=== PATIENT | female | born 1955 | race Caucasian/White ===

== ENCOUNTER 2020-06-26 08:59 | Outpatient (REF) | payer OTHER, SELFPAY ==
[2020-06-26 11:30] LABS: Alanine Aminotransferase 35 U/L (0-31); Anion Gap 14 (12-20); Aspartate Amino Transferase 23 U/L (5-31); Blood Urea Nitrogen 11 mg/dL (9-16); Calcium 9.4 mg/dL (8.4-10.2); Carbon Dioxide 28 mmol/L (22-29); Chloride 100 mmol/L (96-108); Cholesterol 182 mg/dL; Estimated Glomerular Filt Rate > 60; Glucose Fasting 96 mg/dL (60-99); HDL Cholesterol 45 mg/dL; LDL Cholesterol Calculated 100 mg/dl; Potassium 4.4 mmol/l (3.3-5.1); Sodium 138 mmol/L (135-145); Triglycerides 187 mg/dL
[2020-06-26 11:52] LABS: Vitamin D 25-OH Total 32.7 ng/mL (>30)
== END 2020-06-26 09:00 | disposition home or self-care (01) ==
LOC: HO.HMGCLDS 08:59
PROVIDERS: PCP Internal Medicine; Visit Provider Internal Medicine
DX: I10 Essential (primary) hypertension (principal); M85.852 Other specified disorders of bone density and structure, left thigh; Z78.0 Asymptomatic menopausal state
CPT/HCPCS: 36415; 80048; 80061; 82306; 84450; 84460

== ENCOUNTER 2020-08-28 11:16 | Outpatient (REF) | payer OTHER, SELFPAY | END 2020-08-28 11:17 | disposition home or self-care (01) | LOC: HO.CT 11:16 | PROVIDERS: PCP Internal Medicine; Visit Provider Surgery | DX: Z13.89 Encounter for screening for other disorder (principal) ==

== ENCOUNTER 2020-09-04 12:44 | Outpatient (REF) | payer OTHER, SELFPAY ==
--- NOTE | ~2020-09-04 | CT_ITS ---
EXAMINATION: CT CHEST SCREENING CLINICAL INFORMATION: Lung cancer screening COMPARISON: Previous chest CT scans most recent January 2019 TECHNIQUE: Multidetector volumetric CT imaging of the chest is performed without contrast using low dose technique. Additional 2D coronal and sagittal reformatted images and axial 3D maximum intensity projection (MIP) images are generated on the CT workstation. This CT examination was performed using dose optimization techniques as appropriate, variously including the following: *Automated exposure control *Adjustment of mA and/or kV according to patient size (this includes techniques or standardized protocols for targeted exams where dose is matched to indication/reason for exam; i.e. extremities or head) *Use of iterative reconstruction technique DLP: 38 mGy-cm FINDINGS: LUNGS: There is evidence of emphysema. There is biapical pleural and parenchymal scarring, right greater than left. There is a 4 x 7 mm peripheral or subpleural right upper lobe nodule axial image 66 series 5 that is stable. This may be related to pleural parenchymal scarring. There is a 7 mm groundglass attenuation nodule in the left upper lobe axial image 92 series 5 that is stable. There is a 1 cm groundglass attenuation nodule in the right upper lobe axial image 105 series 5 that is stable. There is a mixed groundglass attenuation and cystic area in the anterior segment of the right upper lobe measuring 7 x 11 mm and axial image 1:15 series 5 that is stable. There is a peripheral or subpleural area of increased groundglass attenuation in the anterior segment of the left upper lobe that measures 0.5 x 1.5 cm axial image 204 series 5 that is stable. No new pulmonary nodule is seen. MEDIASTINUM: The mediastinum is normal. PLEURA: There is no pleural effusion. No pleural mass or thickening. AXILLA: No lymphadenopathy. UPPER ABDOMEN: Unremarkable OSSEOUS STRUCTURES: Unremarkable. CT/CT lung screening IMPRESSION: Emphysema. Stable groundglass attenuation nodules ASSESSMENT: Lung-RADS category 2: Benign RECOMMENDATION: Annual low-dose chest CT follow-up recommended.
== END 2020-09-04 12:45 | disposition home or self-care (01) ==
LOC: HO.CT 12:44
PROVIDERS: Visit Provider Surgery
DX: Z12.2 Encounter for screening for malignant neoplasm of respiratory organs (principal); F17.210 Nicotine dependence, cigarettes, uncomplicated
CPT/HCPCS: 71271

== ENCOUNTER 2021-02-01 13:18 | Outpatient (REF) | payer OTHER, SELFPAY ==
[2021-02-01 14:25] LABS: Alanine Aminotransferase 22 U/L (0-31); Anion Gap 13 (12-20); Aspartate Amino Transferase 18 U/L (5-31); Blood Urea Nitrogen 13 mg/dL (9-16); Carbon Dioxide 27 mmol/L (22-29); Chloride 101 mmol/L (96-108); Cholesterol 200 mg/dL; Estimated Glomerular Filt Rate > 60; Glucose Fasting 97 mg/dL (60-99); HDL Cholesterol 45 mg/dL; LDL Cholesterol Calculated 118 mg/dl; Sodium 137 mmol/L (135-145); Triglycerides 189 mg/dL
== END 2021-02-01 13:19 | disposition home or self-care (01) ==
LOC: HO.HMGCLDS 13:18
PROVIDERS: PCP Internal Medicine; Visit Provider Internal Medicine
DX: Z00.01 Encounter for general adult medical examination with abnormal findings (principal); I10 Essential (primary) hypertension; J43.9 Emphysema, unspecified; M85.852 Other specified disorders of bone density and structure, left thigh; Z78.0 Asymptomatic menopausal state
CPT/HCPCS: 36415; 80048; 80061; 82306; 84450; 84460

== ENCOUNTER 2021-10-01 10:07 | Outpatient (REF) | payer OTHER, SELFPAY ==
--- NOTE | ~2021-10-01 | CT_ITS ---
EXAMINATION: CT CHEST SCREENING CLINICAL INFORMATION: Follow up nodules. COMPARISON: CT lung screening 09/04/2020. TECHNIQUE: Multidetector volumetric CT imaging of the chest is performed without contrast using low dose technique. Additional 2D coronal and sagittal reformatted images and axial 3D maximum intensity projection (MIP) images are generated on the CT workstation. This CT examination was performed using dose optimization techniques as appropriate, variously including the following: *Automated exposure control *Adjustment of mA and/or kV according to patient size (this includes techniques or standardized protocols for targeted exams where dose is matched to indication/reason for exam; i.e. extremities or head) *Use of iterative reconstruction technique DLP: 33 mGy-cm FINDINGS: LUNGS: Mild emphysematous changes both lungs without acute pneumonic consolidation. There is right apical pleural/parenchymal scarring. A right upper lobe pleural-based 7 mm nodule or scarring is stable on axial image 81/6, 9 mm ground-glass nodule left upper lobe axial image 14/3, 1.3 cm ground-glass nodule right upper lobe axial image 15/3, 8 mm cystic area with adjacent ground-glass density right upper lobe medially axial image 17/3, linear subpleural thickening left upper lobe anterior segment, new. There is a ground-glass density in the left upper lobe anterior segment measuring approximately 1.6 cm axial image 29/3. The above described ground-glass attenuation changes right apical scarring are stable except for a subpleural linear density left upper lobe. No additional ground-glass density, nodule or mass seen. MEDIASTINUM: The thyroid lobes are symmetric and normal. The central trachea and bronchi are widely patent. Heart size and the great vessels are normal caliber. There is no pericardial effusion. No abnormal-sized mediastinal or hilar lymph node seen. PLEURA: There is no pleural effusion. No pleural mass or thickening. AXILLA: No lymphadenopathy. UPPER ABDOMEN: Visualized liver, spleen, pancreas and bilateral adrenal glands are unremarkable. OSSEOUS STRUCTURES: No lytic or sclerotic process seen. CT/CT lung screening IMPRESSION: Emphysema. Stable ground-glass attenuation nodules and right apical parenchymal scarring. Subpleural linear density left upper lobe is new. ASSESSMENT: Lung-RADS category 2: Benign RECOMMENDATION: Annual low-dose CT chest followup.
== END 2021-10-01 10:08 | disposition home or self-care (01) ==
LOC: HO.CT 10:07
PROVIDERS: PCP Internal Medicine; Visit Provider Physician Assistant Medical
DX: R91.8 Other nonspecific abnormal finding of lung field (principal); F17.210 Nicotine dependence, cigarettes, uncomplicated
CPT/HCPCS: 71271

== ENCOUNTER 2021-12-14 13:15 | Outpatient (REF) | payer OTHER, SELFPAY ==
--- NOTE | ~2021-12-14 | XR_ITS ---
EXAMINATION: XR THORACIC SPINE CLINICAL INFORMATION: Pain in the thoracic spine. COMPARISON: CT lung scan of 10/01/2021. TECHNIQUE: 3 views of the thoracic spine were obtained. FINDINGS: The bony texture and alignment of the thoracic spine is satisfactory. Disc spaces are maintained. Pedicles are intact. No paraspinal line bulge is seen. XR/XR thoracic spine 3V IMPRESSION: No bony abnormality of the thoracic spine identified.
[2021-12-14 14:50] LABS: Alanine Aminotransferase 22 U/L (0-31); Anion Gap 13 (12-20); Aspartate Amino Transferase 22 U/L (5-31); Blood Urea Nitrogen 10 mg/dL (9-16); Calcium 10.1 mg/dL (8.4-10.2); Carbon Dioxide 28 mmol/L (22-29); Chloride 97 mmol/L (96-108); Cholesterol 186 mg/dL; Estimated Glomerular Filt Rate 53; Glucose Fasting 96 mg/dL (60-99); HDL Cholesterol 50 mg/dL; LDL Cholesterol Calculated 108 mg/dl; Potassium 4.3 mmol/L (3.3-5.1); Sodium 134 mmol/L (135-145); Triglycerides 144 mg/dL
[2021-12-14 15:11] LABS: Vitamin D 25-OH Total 50.5 ng/mL (>30)
== END 2021-12-14 13:16 | disposition home or self-care (01) ==
LOC: HO.HMGCLDS 13:15
PROVIDERS: Visit Provider Internal Medicine
DX: Z00.01 Encounter for general adult medical examination with abnormal findings (principal); F17.200 Nicotine dependence, unspecified, uncomplicated; M85.852 Other specified disorders of bone density and structure, left thigh; M54.6 Pain in thoracic spine; I10 Essential (primary) hypertension
CPT/HCPCS: 36415; 72072; 80048; 80061; 82306; 84450; 84460

== ENCOUNTER 2021-12-25 09:23 | Outpatient (REF) | payer OTHER, SELFPAY ==
[2021-12-25 11:49] LABS: Anion Gap 12 (12-20); Blood Urea Nitrogen 19 mg/dL (9-16); Calcium 10.1 mg/dL (8.4-10.2); Carbon Dioxide 29 mmol/L (22-29); Chloride 92 mmol/L (96-108); Estimated Glomerular Filt Rate 48; Glucose Random 115 mg/dL (60-115); Potassium 4.2 mmol/L (3.3-5.1); Sodium 129 mmol/L (135-145)
== END 2021-12-25 09:24 | disposition home or self-care (01) ==
LOC: HO.HMGCLDS 09:23
PROVIDERS: PCP Internal Medicine; Visit Provider Internal Medicine
DX: E87.1 Hypo-osmolality and hyponatremia (principal)
CPT/HCPCS: 36415; 80048

== ENCOUNTER 2022-01-08 11:53 | Outpatient (REF) | payer OTHER, SELFPAY ==
[2022-01-08 14:16] LABS: Anion Gap 15 (12-20); Blood Urea Nitrogen 11 mg/dL (9-16); Calcium 9.3 mg/dL (8.4-10.2); Carbon Dioxide 24 mmol/L (22-29); Chloride 102 mmol/L (96-108); Estimated Glomerular Filt Rate 56; Glucose Random 102 mg/dL (60-115); Potassium 4.8 mmol/L (3.3-5.1); Sodium 136 mmol/L (135-145)
[2022-01-08 14:29] LABS: TSH reflex Free T4 0.83 uIU/mL (0.32-4.0)
== END 2022-01-08 11:54 | disposition home or self-care (01) ==
LOC: HO.HMGCLDS 11:53
PROVIDERS: Internal Medicine; PCP Internal Medicine; Visit Provider Internal Medicine
DX: E87.1 Hypo-osmolality and hyponatremia (principal)
CPT/HCPCS: 36415; 80048; 84443

== ENCOUNTER 2022-10-22 12:44 | Outpatient (REF) | payer MEDICARE, OTHER, SELFPAY ==
--- NOTE | ~2022-10-22 | CT_ITS ---
EXAMINATION: CT CHEST SCREENING CLINICAL INFORMATION: Nicotine dependence. COMPARISON: CT chest 10/01/2021. TECHNIQUE: Multidetector volumetric CT imaging of the chest is performed without contrast using low dose technique. Additional 2D coronal and sagittal reformatted images and axial 3D maximum intensity projection (MIP) images are generated on the CT workstation. This CT examination was performed using dose optimization techniques as appropriate, variously including the following: *Automated exposure control *Adjustment of mA and/or kV according to patient size (this includes techniques or standardized protocols for targeted exams where dose is matched to indication/reason for exam; i.e. extremities or head) *Use of iterative reconstruction technique DLP: 35 mGy-cm FINDINGS: LUNGS: The lungs are expanded with bilateral apical pleural thickening and apical scarring. There are groundglass density seen in both upper lobes measuring 1 cm left apex image 14/4 and 1.2 cm right lung apex image 15/4. A subpleural 7 mm nodule seen previously is unchanged in right lung apex image 73/6 measuring 7 mm. Linear subpleural left upper lobe density image 20/4, cystic area adjacent groundglass densities stable on axial image 16/4. There are small micronodules throughout both lungs, which are stable. No new acute nodule marked, mass or consolidation. MEDIASTINUM: Thyroid lobe are symmetric and normal. The central trachea and bronchi are widely patent. Heart size and the great vessels are normal caliber. There is no pericardial effusion. No coronary artery calcification seen. No abnormal size mediastinal or hilar lymph nodes seen. CORONARY ARTERY CALCIFICATION: None visualized on this study. PLEURA: There is no pleural effusion. No pleural mass or thickening. AXILLA: No lymphadenopathy. UPPER ABDOMEN: Visualized liver cyst, spleen, gallbladder and adrenal glands unremarkable. The pancreas is unremarkable as well. OSSEOUS STRUCTURES: No aggressive lytic or sclerotic process seen. CT/CT lung screening IMPRESSION: Stable bilateral upper lobe groundglass densities and nodules. No new nodules seen. ASSESSMENT: Lung-RADS category 2: Benign. RECOMMENDATION: Annual low-dose CT screening.
== END 2022-10-22 12:45 | disposition home or self-care (01) ==
LOC: HO.CT 12:44
PROVIDERS: PCP Internal Medicine; Visit Provider Physician Assistant Medical
DX: Z12.2 Encounter for screening for malignant neoplasm of respiratory organs (principal); F17.210 Nicotine dependence, cigarettes, uncomplicated
CPT/HCPCS: 71271

== ENCOUNTER 2023-06-11 08:26 | Outpatient (AMB) | payer MEDICARE, OTHER, SELFPAY ==
--- NOTE | 2023-06-11 08:36 | AM.OFFVISMDC ---
Intake Vital Signs 06/11/23 08:38 06/11/23 09:43 Height 5 ft Weight 117 lb 6 oz BMI 22.9 BP 195/85 H 200/90 H Blood Pressure Location Rt brachial Lt brachial Position Sitting Sitting Pulse 68 Pulse Source Pulse Oximeter Pulse Oximetry (%) 99 Oxygen Delivery Method Room Air Intake Visit Reasons: AWV Allergies celecoxib Adverse Reaction (Unknown, Verified 06/11/23 08:52) dry mouth , feels weak /sluggish Medication List - Last Reconciled 06/11/23 by Tenisha Neely MD aspirin (Adult Aspirin Regimen) 81 mg PO DAILY flu vac [id number] 36mos up(PF) mL IM lisinopril 20 mg PO DAILY metoprolol succinate ER 25 mg PO DAILY varicella-zoster [id number] (PF) 50 mcg/0.5 mL IM zolpidem 10 mg PO BEDTIME PRN HPI AWV HPI Details AWV ? 67 year old lady with hypertension emphysema, continues to smoke with no desire to quit at present time, goes for yearly low-dose CT scan of chest for lung cancer screening, has osteopenia of left femoral neck , insomnia and lumbar degenerative disc disease, presents today for her ? Annual Wellness Visit, initial visit. She is up-to-date with her screening mammogram, goes to see her OB at [place] Dr. Hidalgo for her routine Pap and pelvic exam, last done a year ago with normal findings, per patient, copy of results requested.. Up-to-date with her bone density scan done a year ago per patient. She is up-to-date with her diabetes screening and cholesterol screening, done a year ago with normal findings. Has had a screening colonoscopy done 11/10/[address] Vazquez with adenomatous polyps removed, to be repeated again this year. ? Medical / Social History Reviewed? Past Medical History ?Yes . ? [place] of Care / Care Team list updated ?Yes . ? Surgical/Hospitalization History ?Yes . ? Current Medications (including OTC and supplements) ?Yes . ? Family History ?Yes . ? Tobacco Control form ?Yes . ? AUDIT-C (Alcohol use) form ?Yes . ? Illicit drug use in Social History ?Yes . ? Current diagnosis of depression? ?No ? Appropriate PHQ2/PHQ9 completed ?Yes . ? Data entered by ?Process Manufacturing Engineer and reviewed by provider ? Fall Risk ? Fall History? Have you had any falls with injury in the past year? ?No . ? Have you had two or more falls in the past year? ?No . ? Fall Risk Assessment: ?No falls in the past year . ? HRA filled out by the patient, reviewed by Provider and scanned. ?? AWV ? Balance? Romberg ?Yes . ? Tandem walk ?Yes . ? Walk and Turn ?Yes . ? Rise from sit to stand ?Yes . ?Vision? Corrective lens ?Yes ? Vision screen ? Up-to-date, sees Dr. Gibbons ?Hearing? Whisper test ?pass . ?Written Plan?Completed. See Patient Documents.? HPI Comments History of Present Illness Details Complains of intermittent episodes of left-sided chest pain, last several seconds and resolved spontaneously , which has been present now for the last several months. Denies any accompanying shortness of breath, no lightheadedness, no headache or syncopal attack . Blood pressure today is markedly elevated, currently taking lisinopril 20 mg daily and metoprolol XL 25 mg daily. Has been compliant with taking her medications, tries to follow recommended diet. Continues to smoke however, but has cut down to just 1.5 pack a day, unmotivated to quit at present time. 12 lead EKG done today showed normal sinus rhythm with no acute ST-T changes, no LVH or blocks seen. [facility] Medical History (Updated 06/12/23 @ 00:59 by Tenisha Neely MD) Pulmonary nodule Intermittent left-sided chest pain Uncontrolled hypertension Smoker unmotivated to quit Emphysema lung Osteopenia of left femoral neck Insomnia Essential hypertension Lumbar degenerative disc disease Surgical History Hx of colonoscopy History of tonsillectomy History of tubal ligation Family History Father HTN (hypertension) Cancer of prostate Hyperlipidemia Mother HTN (hypertension) Colon cancer Breast cancer Lung cancer Maternal Grandmother No problems noted. Maternal Grandfather Lung cancer Paternal Grandmother No problems noted. Paternal Grandfather Colon cancer Brother No problems noted. Brother No problems noted. Sister No problems noted. Son No problems noted. Social History Housing: House Alcohol intake: current Patient Tobacco Use Status: Current everyday Tobacco user Tobacco use type: Cigarette Cigarette Packs Per Day: 1.5 Cigarettes Per Day: 10 Years Smoked: 23 e-Cigarette/Vaping Use: Never Used Second Hand Smoke Exposure: No service: No Current occupational status: retired Cognitive needs: No Hearing needs: No Vision needs: Yes Questionnaire Medicare Wellness Checkup [age] What gender do you identify with?: female During the past 4 weeks, how much have you been bothered by emotional problems such as feeling anxious, depressed, irritable, sad or downhearted, and blue?: slightly During the past 4 weeks, has your physical & emotional health limited your social activities with family, friends, neighbors, or groups?: slightly During the past 4 weeks, how much bodily pain have you generally had?: moderate pain During the past 4 weeks, was someone available to help you if you needed & wanted help?: yes, as much as I wanted During the past 4 weeks, what was the hardest physical activity you could do for at least 2 minutes?: heavy Can you get to places out of walking distance without help? (For eg., can you travel alone on buses, taxis or drive your car?): Yes Can you go shopping for groceries or clothes without someone's help?: Yes Can you prepare your own meals?: Yes Can you do your housework without help?: Yes Because of any health problems, do you need the help of another person with your personal care needs such as eating, bathing, dressing or getting around the house?: No Can you handle your own money without help?: Yes During the past 4 weeks, how would you rate your health in general?: good During the past 4 weeks how have things been going for you?: good & bad parts about equal Are you having difficulties driving your car?: no Do you always fasten your seat belt when you are in a car?: yes, usually During past 4 weeks, have you been bothered by the following: never: Falling or dizzy when standing up, Sexual problems?, Trouble eating well? and Problems using the telephone?, seldom: Teeth or denture problems? and sometimes: Tiredness or fatigue? Have you fallen 2 or more times in the past year?: No Are you afraid of falling?: No Are you a smoker?: yes, but I'm not ready to quit During the past 4 weeks, how many drinks of wine, beer, or other alcoholic beverages did you have?: 2-5 drinks per week Do you exercise for about 20 minutes 3 or more times a week?: no, I usually do not exercise this much Have you been given information to help with the following?: no: Hazards in your house that might hurt you? and no: Keeping track of your medications? How often do you have trouble taking medicines the way you have been told to take them?: I always take medicine as prescribed How confident are you that you can control & manage most of your health problems?: very confident What is your race?: White Mini Mental State Exam (MMSE) Orientation What is the (year) (season) (date) (day) (month)?: year (2023), season (Winter), date (06/11/2023), day (Friday) and month (June) Where are we (state) (county) (town or city) (hospital) (floor)?: state ([place]), county ([place]), town or city ([place]) and hospital/clinic ([facility]) Score Score: 9 Activity of Daily Living Bathing - sponge bath, tub bath or shower: receives no assistance (gets in/out by self, if usual bathing means Dressing - getting clothes from closets & drawers, including inner/outer garments & fasteners.: gets clothes & gets completely dressed without help Toileting - going to the 'toilet room' for urine/bowel elimination & cleaning self/arranging clothes: goes to toilet room, cleans self, arranges clothes without help Transfer: moves in & out of bed and chair without help (may use support object) Continence: controls urination/bowel movements completely by self Feeding: feeds self without help Total Score: 0 Information obtained from: patient Using telephone: independent Traveling: independent Shopping: independent Preparing meals: independent Housework: independent Taking medicine: independent Managing money: independent PHQ-9 Over the last 2 weeks, how often have you been bothered by any of the following problems? 1. Little interest or pleasure in doing things: not at all 2. Feeling down, depressed, or hopeless: not at all 3. Trouble falling or staying asleep, or sleeping too much: more than half the days 4. Feeling tired or having little energy: several days 5. Poor appetite or overeating: several days 6. Feeling bad about yourself - or that you are a failure or have let yourself or your family down: not at all 7. Trouble concentrating on things, such as reading the newspaper or watching television: not at all 8. Moving or speaking so slowly that other people could have noticed. Or the opposite - being so fidgety or restless that you have been moving around a lot more than usual: not at all 9. Thoughts that you would be better off or of hurting yourself in some way: not at all Total score: 4 Depression Screening Interpretation: Negative Depression Screening Done: Yes 80740 - PHQ-9 Billing: Yes Source: Developed by Drs. Bertram Garzon, Vira Hunter, Josiah Ventura and colleagues, with an educational fam from [employer]. AUDIT C Alcohol Use Questionnaire (AUDIT-C) 1. How often do you have a drink containing alcohol?: 2-4 times a month 2. How many drinks containing alcohol do you have on a typical day when you are drinking?: 3 or 4 3. How often do you have six or more drinks on one occasion?: Less than monthly Total Score: 4 Score Reviewed/Action Taken: Yes (Patient advised to come back or abstain from all alcohol intake completely) SUKHI-7 AMB Questionnaire SUKHI-7 Date SKUHI - 7 assessed: 06/11/23 Feeling nervous, anxious, or on edge: 1 = Several days Not being able to stop or control worryin = Several days Worrying too much about different things: 1 = Several days Trouble relaxin = Several days Being so restless that it is hard to sit still: 0 = Not at all Becoming easily annoyed or irritable: 1 = Several days Feeling afraid as if something awful might happen: 1 = Several days Total SUKHI-7 score (0-4 normal; 5-9 mild; 10-14 moderate; 15-21 severe): 6 Source: Developed by Drs. Bertram Garzon, Vira Hunter, Josiah Ventura and colleagues, with an educational fam from [employer]. SUKHI-7 Assessment Billing SUKHI-7 Assessment Tool: SUKHI-7 Assessment 47730 Review of Systems Const Denies body aches, Denies fatigue, Denies fever(s), Denies headache(s) and Denies weakness Eyes Details: UTD with her eye exam , seen by [facility] Gib[facility] in [facility] , per pt Reports no additional complaints, Denies change in vision and Denies eye discharge ENT Details: utd with her dental prophylaxis , recently had her cleaning Denies dizziness, Denies headache(s), Denies nasal congestion, Denies nasal discharge and Denies sore throat Card Denies syncope, Denies rapid heart rate, Denies irregular heart rhythm, Denies leg edema, Denies lightheadedness, Denies radiating jaw, neck or arm pain, Denies palpitations, Denies dyspnea and Denies dyspnea on exertion Resp Denies chest congestion, Denies cough, Denies dyspnea and Denies dyspnea on exertion GI Denies abdominal pain, Denies change in bowel habits, Denies heartburn and Denies nausea Details: [facility] , had her pap this year Denies urinary frequency, Denies dysuria and Denies urinary urgency Musc Denies back pain, Denies myalgias and Denies arthralgias Skin/Breast Denies lesions and Denies rash Neuro Denies dizziness, Denies syncope, Denies headache(s) and Denies weakness Psych Reports no additional complaints Endo Denies fatigue, Denies polydipsia, Denies polyuria and Denies palpitations Philip/Lymph Reports no additional complaints Aller/Immun Reports no additional complaints Physical Exam Vital Signs: Last Vital Signs Pulse 68 06/11/23 08:38 BP 200/90 H 06/11/23 09:43 Pulse Ox 99 06/11/23 08:38 Oxygen Delivery Method Room Air 06/11/23 08:38 BMI result Body Mass Index 22.9 Const Other: Alert, Oriented x3, no acute distress noted, ambulatory normal gait Orientation/consciousness: patient oriented x3 HEENT Head: Yes normocephalic and Yes atraumatic Ears: external ears normal General nose exam: Normal external nose present Face and sinus: Yes face symmetric Mouth: Normal oral and palatal mucosa present, oropharynx normal and moist mucous membranes Eyes General: appearance normal, both eyes and all related structures Neck Neck: Yes full ROM, Yes no lymphadenopathy, Yes no meningeal signs and Yes supple Thyroid: Thyroid normal Resp Auscultation: clear to auscultation bilaterally Cardio Palpation: normal PMI Rate: regular rate Rhythm: regular rhythm Heart sounds: S1 normal heart sound present and S2 normal heart sound present GI Palpation (GI): Soft to palpation, nontender, no guarding and no masses Auscultation: normal bowel sounds Skin General skin exam: no rashes or lesions noted Neuro General: patient oriented x3, gait normal, tone normal, moves all extremities, Normal light touch and pain sensation, no meningeal signs, no focal motor deficits and CN's II-XI intact bilaterally Extrem General: Yes full ROM, Yes no joint enlargement, Yes no clubbing, cyanosis or edema, Yes no calf tenderness and Yes normal gait Psych Appearance: grossly normal and well kempt Mental Status: mental status grossly normal Speech and movement: Normal speech and movement present Affect: normal affect Attitude: cooperative Thought process: Normal thought process present Immunizations pneumoc 20-lori conj-dip cr(PF) 0.5 mL IM syringe Performing Provider: Tenisha Neely MD Performing Location: [facility] Administered by: Joselyn Trimble CMA on 06/11/23 09:43 Dose Route Admin Location Dispensed Lot Number Expiration Date NDC Cutter Apprentice Hand 0.5 mL IM Left Deltoid 0.5 mL [id number] 07/30/24 [id number] [employer] VIS Given Date VIS Provided VIS Publication Date 06/11/23 Single Vaccine 21 Eligibility Eligibility Date Funding Source Not [facility] Eligible 06/11/23 Private Assessment & Plan Assessment & Plan (1) Emphysema lung: Code(s): J43.9 - Emphysema, unspecified Qualifiers: Emphysema type: unspecified Qualified Code(s): J43.9 - Emphysema, unspecified Plan: Currently asymptomatic Prevnar 20 given today. Strongly encouraged to quit smoking (2) Uncontrolled hypertension: Code(s): I10 - Essential (primary) hypertension Plan: Blood pressure markedly elevated on this visit. Patient however currently is symptomatic with no complaints of chest pain, headache, lightheadedness or shortness of breath. EKG done today showed normal sinus rhythm no acute ST-T changes, no LVH. Will continue on lisinopril 20 mg daily, metoprolol succinate ER 25 mg at night, and added amlodipine 10 mg per tablet to take 1 tablet once a day in a.m. together with lisinopril. Cardiology consult ordered (3) Osteopenia of left femoral neck: Comment: Noted on bone density done 2018, no change from previous Code(s): M85.852 - Other specified disorders of bone density and structure, left thigh (4) Intermittent left-sided chest pain: Code(s): R07.89 - Other chest pain Plan: EKG done today showed normal sinus rhythm with no acute ST-T changes, stress test ordered referred to cardiology, continue aspirin 81 mg daily, advised to go to the ER if any chest pain develops again specially fit progresses accompanied by shortness of breath, nausea,lightheadedness (5) Need for pneumococcal 20-valent conjugate vaccination: Code(s): Z23 - Encounter for immunization Plan: Prevnar 20 given today (6) Smoker unmotivated to quit: Code(s): F17.200 - Nicotine dependence, unspecified, uncomplicated Plan: Patient strongly advised to stop smoking, as smoking damages blood vessels, degenerative of joints and spine, damage to lungs and heart., predisposes to developing certain cancers like lung, breast, bladder, colon. Recommended to try decreasing cigarette use by 1-2 cigarettes a day. Advised to monitor what triggers are for smoking so that this can be discussed on the next office visit. We can discuss different options to quit smoking when ready. (7) Insomnia: Code(s): G47.00 - Insomnia, unspecified Qualifiers: Insomnia type: unspecified Qualified Code(s): G47.00 - Insomnia, unspecified Plan: Continue zolpidem (8) Encounter for initial annual wellness visit (AWV) in Medicare patient: Code(s): Z00.00 - Encounter for general adult medical examination without abnormal findings Plan: Medical wellness checklist reviewed, discussed with patient and updated, requested copies of her most recent Pap in bone density scan from her OBGYN in [place]. MOLST and healthcare proxy form completed today and scanned into chart (9) Advanced directives, counseling/discussion: Code(s): Z71.89 - Other specified counseling Plan: Initiated the conversation about Advanced Directives. Advanced Directives help patients prepare for current and future decisions about their medical treatment and place of care. Discussed with patient that it is a process where a patients current condition and prognosis are reviewed, their wishes for information regarding their illness are elicited, and likely medical dilemmas are presented and options discussed. Healthcare proxy and MOLST form completed today. These forms can be amended as needed, reviewed yearly and make changes as needed (10) Pulmonary nodule: Code(s): R91.1 - Solitary pulmonary nodule Plan: Patient up-to-date with her yearly low-dose CT scan screening done at [facility] Plan As above Orders: Orders Comprehensive [place]. Panel Fast 06/11/23 I10 - Essential (primary) hypertension, J43.9 - Emphysema, unspecified, M85.852 - Other specified disorders of bone density and structure, left thigh TSH reflex Free T4 06/11/23 I10 - Essential (primary) hypertension, J43.9 - Emphysema, unspecified, M85.852 - Other specified disorders of bone density and structure, left thigh Vitamin D 25-OH Total 06/11/23 I10 - Essential (primary) hypertension, J43.9 - Emphysema, unspecified, M85.852 - Other specified disorders of bone density and structure, left thigh Vitamin B12 and Folate 06/11/23 I10 - Essential (primary) hypertension, J43.9 - Emphysema, unspecified, M85.852 - Other specified disorders of bone density and structure, left thigh Magnesium 06/11/23 I10 - Essential (primary) hypertension, J43.9 - Emphysema, unspecified, M85.852 - Other specified disorders of bone density and structure, left thigh AMB EKG-In Office 06/11/23 I10 - Essential (primary) hypertension, R07.89 - Other chest pain Complete Blood Count Auto Diff 06/11/23 I10 - Essential (primary) hypertension, J43.9 - Emphysema, unspecified, M85.852 - Other specified disorders of bone density and structure, left thigh Lipid Panel 06/11/23 I10 - Essential (primary) hypertension, J43.9 - Emphysema, unspecified, M85.852 - Other specified disorders of bone density and structure, left thigh CA stress test 06/11/23 I10 - Essential (primary) hypertension, R07.89 - Other chest pain Pneumococcal 20 Immunization 06/11/23 Z23 - Encounter for immunization Referrals Cardiology Referral I10 - Essential (primary) hypertension, J43.9 - Emphysema, unspecified, M85.852 - Other specified disorders of bone density and structure, left thigh, R07.89 - Other chest pain Medications: New amlodipine 10 mg PO DAILY 30 tabs 0RF I10 - Essential (primary) hypertension Quality Reporting (2019) Depression/Bipolar (159/160/161/177) PHQ-9: Total score: 4 Coding Level of Care Code Medicare First (G0438) Est Pt Level 4 (73738) Diagnoses Pulmonary emphysema, unspecified emphysema type J43.9 Emphysema type: unspecified Uncontrolled hypertension I10 Osteopenia of left femoral neck M85.852 Intermittent left-sided chest pain R07.89 Need for pneumococcal 20-valent conjugate vaccination Z23 Smoker unmotivated to quit F17.200 Insomnia, unspecified type G47.00 Insomnia type: unspecified Encounter for initial annual wellness visit (AWV) in Medicare patient Z00.00 Advanced directives, counseling/discussion Z71.89 Pulmonary nodule R91.1 CPT Codes Advance Care Planning - Time spent: 16-45 minutes ([id number]) Additional Codes SUKHI-7 Assessment Billing - SUKHI-7 Assessment Tool: SUKHI-7 Assessment 71214 ([id number]) Advance Care Planning Advance Care Planning discussion: Completed/Scanned Date of discussion: 06/11/23 Who was present: Patient Forms completed: Health Care Proxy and MOLST Time spent: 16-45 minutes Actual minutes spent: 16
[2023-06-11 08:38] VITALS: BP 195/85; PULSE 68; O2SAT 99; BMI 22.9
[2023-06-11 09:43] VITALS: BP 200/90
== END 2023-06-11 11:31 | disposition home or self-care (01) ==
PROVIDERS: PCP Internal Medicine; Visit Provider Internal Medicine
DX: Z00.00 Encounter for general adult medical examination without abnormal findings (principal); J43.9 Emphysema, unspecified; I10 Essential (primary) hypertension; Z23 Encounter for immunization; M85.852 Other specified disorders of bone density and structure, left thigh; R07.89 Other chest pain; F17.200 Nicotine dependence, unspecified, uncomplicated; G47.00 Insomnia, unspecified; Z71.89 Other specified counseling; R91.1 Solitary pulmonary nodule
CPT/HCPCS: 90471; 90677; 99214; 99497; G0402; G0438

== ENCOUNTER 2023-06-11 09:47 | Outpatient (REF) | payer MEDICARE, OTHER, SELFPAY ==
[2023-06-11 11:34] LABS: MANUAL DIFF FLAG NO
[2023-06-11 11:42] LABS: Basophils Absolute Auto 0.1 X10*3/uL (0.0-0.2); Eosinophils Absolute Auto 0.6 X10*3/uL (0.0-0.4); Eosinophils Percent Auto 6.1 % (0-4); Hematocrit 39.5 % (37.0-47.0); Hemoglobin 13.1 g/dl (12.0-16.0); Imm Gran Abs Auto 0.05 X10*3/uL (0.00-0.03); Imm Gran Pct Auto 0.5 % (0.0-0.4); Lymphocytes Absolute Auto 2.3 X10*3/uL (1.2-4.9); Lymphocytes Percent Auto 22.1 % (20-40); Mean Corpuscular HGB Conc 33.2 g/dl (31.0-35.0); Mean Corpuscular Hemoglobin 32.5 pg (27.0-33.0); Mean Platelet Volume 9.5 fL (9.4-12.3); Monocytes Absolute Auto 0.8 X10*3/uL (0.1-1.2); Monocytes Percent Auto 7.3 % (2-11); Neutrophils Absolute Auto 6.6 x10*3/uL (2.0-8.3); Platelet Count 344 X10*3/uL (160-400); Red Blood Count 4.03 X10*6/uL (4.20-5.50); Red Cell Distribution Width 12.3 % (11.0-16.0); White Blood Count 10.5 X10*3/uL (4.8-10.8)
[2023-06-11 12:32] LABS: Alanine Aminotransferase 17 U/L (0-31); Albumin Level 4.3 g/dL (3.5-5.0); Alkaline Phosphatase 96 U/L (39-117); Anion Gap 15 (12-20); Aspartate Amino Transferase 19 U/L (5-31); Bilirubin Total 0.4 mg/dL (0.0-1.0); Blood Urea Nitrogen 9 mg/dL (9-16); Calcium 9.3 mg/dL (8.4-10.2); Carbon Dioxide 28 mmol/L (22-29); Chloride 102 mmol/L (96-108); Cholesterol 185 mg/dL (<200); Estimated Glomerular Filt Rate > 60; Glucose Fasting 88 mg/dL (60-99); HDL Cholesterol 38 mg/dL (>40); LDL Cholesterol Calculated 111 mg/dL (<100); Potassium 3.3 mmol/L (3.3-5.1); Sodium 142 mmol/L (135-145); TSH reflex Free T4 0.86 uIU/mL (0.32-4.0); Total Protein 7.5 g/dL (6.5-8.0); Triglycerides 183 mg/dL (<150); Vitamin D 25-OH Total 31.7 ng/mL (>30)
[2023-06-11 12:44] LABS: Vitamin B12 406 pg/mL (200-900)
== END 2023-06-11 09:48 | disposition home or self-care (01) ==
LOC: HO.HMGCLDS 09:47
PROVIDERS: PCP Internal Medicine; Visit Provider Internal Medicine
DX: I10 Essential (primary) hypertension (principal); J43.9 Emphysema, unspecified; M85.852 Other specified disorders of bone density and structure, left thigh
CPT/HCPCS: 36415; 80053; 80061; 82306; 82607; 82746; 83735; 84443; 85025

== ENCOUNTER 2023-06-24 13:48 | Outpatient (AMB) | payer MEDICARE, OTHER, SELFPAY ==
[2023-06-24 14:08] VITALS: BP 110/60; PULSE 80; BMI 23.7
--- NOTE | 2023-06-24 14:08 | A.OFFVIS_ITS ---
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: No Accompanied by: Self / Same As Patient Allergies celecoxib Adverse Reaction (Unknown, Verified 06/11/23 08:52) dry mouth , feels weak /sluggish Medication List - Last Reconciled 06/24/23 by Dionicio Wong MD amlodipine 10 mg PO DAILY ascorbic acid (vitamin C) 1,000 mg PO DAILY aspirin (Adult Aspirin Regimen) 81 mg PO DAILY cholecalciferol (vitamin D3) 75 mcg PO DAILY diclofenac sodium 1% (Arthritis Pain (diclofenac)) 2 grams topical DAILY PRN hydrochlorothiazide 12.5 mg PO QAM lisinopril 20 mg PO DAILY metoprolol succinate ER 25 mg PO DAILY zolpidem 10 mg PO BEDTIME PRN HPI HPI Comments History of Present Illness Details [age] year female who is referred to us for chest pain. She has been experiencing chest pains for approximately 2 decades. She previously has stress testing done but does not know the results of. She is saying recently she has been experiencing more chest discomfort. The squeezing sensation left- sided chest which happens at rest and with activity. It lasts for few seconds and goes away. She has been a smoker and smokes 5 cigarettes per day and has mild emphysema. She also has lung nodules. She previously had CT chest performed to assess the nodules which showed no calcium in the coronary arteries. She is due to get a stress test. She has uncontrolled hypertension and is on multiple medications and currently blood pressure appears to be well controlled. She is taking medications regularly she. She has been on baby aspirin. She had lipid panel showed LDL of 111 and triglycerides 183. She is trying lifestyle changes for lipid management. [facility] Medical History (Updated 06/24/23 @ 14:37 by Dionicio Wong MD) Pulmonary nodule Intermittent left-sided chest pain Uncontrolled hypertension Smoker unmotivated to quit Emphysema lung Osteopenia of left femoral neck Insomnia Essential hypertension Lumbar degenerative disc disease Surgical History Hx of colonoscopy History of tonsillectomy History of tubal ligation Family History Father HTN (hypertension) Cancer of prostate Hyperlipidemia Mother HTN (hypertension) Colon cancer Breast cancer Lung cancer Maternal Grandmother No problems noted. Maternal Grandfather Lung cancer Paternal Grandmother No problems noted. Paternal Grandfather Colon cancer Brother No problems noted. Brother No problems noted. Sister No problems noted. Son No problems noted. Social History Housing: House Alcohol intake: current Patient Tobacco Use Status: Current everyday Tobacco user Tobacco use type: Cigarette Cigarette Packs Per Day: 1.5 Cigarettes Per Day: 10 Years Smoked: 23 e-Cigarette/Vaping Use: Never Used Second Hand Smoke Exposure: No service: No Current occupational status: retired Cognitive needs: No Hearing needs: No Vision needs: Yes Review of Systems Const Reports chills, Reports fatigue, Reports fever(s), Reports frequent falls, Reports weakness, Reports weight gain and Reports weight loss ENT Reports dizziness Card Reports chest pain, Reports leg edema, Reports lightheadedness, Reports palpitations, Reports dyspnea, Reports dyspnea on exertion and Reports orthopnea Resp Reports cough, Reports dyspnea and Reports dyspnea on exertion GI Reports bloating and Reports change in bowel habits Musc Reports muscle weakness, Reports numbness and Reports tingling Neuro Reports dizziness, Reports frequent falls, Reports numbness, Reports tingling and Reports weakness Endo Reports fatigue and Reports palpitations Physical Exam Vital Signs: Last Vital Signs Pulse 80 06/24/23 14:08 BP 110/60 06/24/23 14:08 BMI result Body Mass Index 23.7 GENERAL APPEARANCE: in no acute distress, pleasant. NECK: Left carotid bruit, no jugular venous distention. SKIN: no suspicious lesions, warm and dry. HEART: no murmurs, regular rate and rhythm. LUNGS: clear to auscultation bilaterally. ABDOMEN: soft, nontender. EXTREMITIES: no edema. PERIPHERAL PULSES: equal. NEUROLOGIC: No gross deficits, AAO X 3 Assessment & Plan Assessment & Plan (1) Essential hypertension: Code(s): I10 - Essential (primary) hypertension (2) Left carotid bruit: Code(s): R09.89 - Other specified symptoms and signs involving the circulatory and respiratory systems (3) Chest pain: Code(s): R07.9 - Chest pain, unspecified Plan 67 year female who is here for assessment chest discomfort. She has been experiencing chest pains for many many years. The story sounds atypical. She is due to get a stress test and I think it is reasonable to do exercise stress testing in her because she has significant risk factors for coronary disease. She has hypertension and blood pressure is well controlled. LDL cholesterol is 111. She has a left carotid bruit and is a smoker. I am going to start her on atorvastatin 20 mg daily. We will do carotid duplex. Will also check echocardiography to assess for any hypertrophy and assess diastolic function. Thank you for allowing me to participate in the care of your patient. Please feel free to contact me if you have any questions. Orders: Orders US carotid duplex BI Today R09.89 - Other specified symptoms and signs involving the circulatory and respiratory systems CA echo transthorac w con Today I10 - Essential (primary) hypertension Medications: New atorvastatin 20 mg PO BEDTIME 90 tabs 3RF R09.89 - Other specified symptoms and signs involving the circulatory and respiratory systems Coding Level of Care Code New Pt Level 4 (46537) Diagnoses Essential hypertension I10 Left carotid bruit R09.89 Chest pain R07.9
== END 2023-06-24 14:37 | disposition home or self-care (01) ==
PROVIDERS: PCP Internal Medicine; Visit Provider Internal Medicine Cardiovascular Disease
DX: I10 Essential (primary) hypertension (principal); R09.89 Other specified symptoms and signs involving the circulatory and respiratory systems; R07.9 Chest pain, unspecified
CPT/HCPCS: 99204

== ENCOUNTER → 2023-06-24 13:48 | Outpatient (BNVA) | payer MEDICARE, OTHER, SELFPAY | PROVIDERS: PCP Internal Medicine; Visit Provider Internal Medicine Cardiovascular Disease | DX: R07.9 Chest pain, unspecified (principal); I10 Essential (primary) hypertension; R09.89 Other specified symptoms and signs involving the circulatory and respiratory systems | CPT/HCPCS: 99202 ==

== ENCOUNTER → 2023-06-27 09:45 | Outpatient (REF) | payer MEDICARE, OTHER, SELFPAY ==
--- NOTE | 2023-06-27 09:48 | CA_ITS ---
Acquisition Time: 2023-06-27 09:58:19 Total Exercise Time: 00:05:34 Test Indications: CP Medications: SEE H Protocol: ADE Max HR: 133 BPM 85% of Pred: 155 BPM Max BP: 170/030 mmHG Max Work Load: 7.0 METS Exercise stress test exercise 5 min 34 sec of Ade protocol achjieving 85% MPHR, without anginal symptoms, with asymptomatic isolated PVCs, with max BP 170/30 at 2 min recovery, without EKG changes. Test reviewed with Dr. Wong. Referred By: Tenisha Neely Overread By: Apple Shahid
== END ==
LOC: HO.CARD 09:45
PROVIDERS: PCP Internal Medicine; Visit Provider Internal Medicine
DX: R07.89 Other chest pain (principal); I10 Essential (primary) hypertension
CPT/HCPCS: 93017

== ENCOUNTER → 2023-06-27 09:48 | Outpatient (BNV) | payer MEDICARE, OTHER, SELFPAY | PROVIDERS: PCP Internal Medicine; Visit Provider Nurse Practitioner | DX: R07.89 Other chest pain (principal) | CPT/HCPCS: 93016; 93018 ==

== ENCOUNTER 2023-07-14 10:26 | Outpatient (AMB) | payer MEDICARE, OTHER, SELFPAY ==
[2023-07-14 10:29] VITALS: BP 124/58; PULSE 75; O2SAT 100; BMI 22.7
--- NOTE | 2023-07-14 10:29 | MHC.PC.OV ---
Vital Signs 07/14/23 10:29 Height 5 ft Weight 116 lb BMI 22.7 BP 124/58 L Blood Pressure Location Lt brachial Position Sitting Pulse 75 Pulse Source Pulse Oximeter Pulse Oximetry (%) 100 Oxygen Delivery Method Room Air Intake Visit Reasons: 1 month follow up per AE Intake Note: Pt is here today for her 1 month f/u b/p Allergies celecoxib Adverse Reaction (Unknown, Verified 07/15/23 01:14) dry mouth , feels weak /sluggish Medication List - Last Reconciled 07/15/23 by Tenisha Neely MD amlodipine 5 mg (1/2 x 10 mg) PO DAILY ascorbic acid (vitamin C) 1,000 mg PO DAILY aspirin (Adult Aspirin Regimen) 81 mg PO DAILY atorvastatin 20 mg PO BEDTIME cholecalciferol (vitamin D3) 75 mcg PO DAILY diclofenac sodium 1% (Arthritis Pain (diclofenac)) 2 grams topical DAILY PRN hydrochlorothiazide 12.5 mg PO QAM lisinopril 20 mg PO DAILY metoprolol succinate ER 25 mg PO DAILY Tobacco use date assessed: 07/14/23 Fall risk assessment: No Falls in past year Last assessed Fall Risk: 07/14/23 Dental Screening Dental Screen Date: 07/14/23 Did you have a dental visit in the last 12 months?: Yes Did you have a dental problem in the last 6 months where you did not have access to dental care?: No Was dental information given to patient?: Patient has dentist HPI 1 month follow up per AE HPI Details 67-year-old lady here today for follow-up on her hypertension. Currently taking amlodipine 5 mg daily, hydrochlorothiazide 12.5 mg in the morning and lisinopril 20 mg daily as well as metoprolol succinate ER 25 mg daily. She has been checking her blood pressure at home and it has been averaging 130/80 below. She is scheduled on 07/31/2023 for an echocardiogram and carotid ultrasound, ordered by Dr. Wong. Has been feeling well with no complaints at present time. She however continues to smoke cigarettes, but has cut down to just 1 pack a week, but not ready to quit completely. [facility] Medical History (Updated 07/14/23 @ 10:54 by Tenisha Neely MD) Essential hypertension Pulmonary nodule Intermittent left-sided chest pain Uncontrolled hypertension Smoker unmotivated to quit Emphysema lung Osteopenia of left femoral neck Insomnia Essential hypertension Lumbar degenerative disc disease Surgical History Hx of colonoscopy History of tonsillectomy History of tubal ligation Family History Father HTN (hypertension) Cancer of prostate Hyperlipidemia Mother HTN (hypertension) Colon cancer Breast cancer Lung cancer Maternal Grandmother No problems noted. Maternal Grandfather Lung cancer Paternal Grandmother No problems noted. Paternal Grandfather Colon cancer Brother No problems noted. Brother No problems noted. Sister No problems noted. Son No problems noted. Social History Housing: House Alcohol intake: current Patient Tobacco Use Status: Current everyday Tobacco user Tobacco use type: Cigarette Cigarette Packs Per Day: 1.5 Cigarettes Per Day: 10 Years Smoked: 23 e-Cigarette/Vaping Use: Never Used Second Hand Smoke Exposure: No service: No Current occupational status: retired Cognitive needs: No Hearing needs: No Vision needs: Yes Questionnaire PHQ-9 Over the last 2 weeks, how often have you been bothered by any of the following problems? 1. Little interest or pleasure in doing things: not at all 2. Feeling down, depressed, or hopeless: not at all 3. Trouble falling or staying asleep, or sleeping too much: not at all 4. Feeling tired or having little energy: not at all 5. Poor appetite or overeating: not at all 6. Feeling bad about yourself - or that you are a failure or have let yourself or your family down: not at all 7. Trouble concentrating on things, such as reading the newspaper or watching television: not at all 8. Moving or speaking so slowly that other people could have noticed. Or the opposite - being so fidgety or restless that you have been moving around a lot more than usual: not at all 9. Thoughts that you would be better off or of hurting yourself in some way: not at all Total score: 0 Depression Screening Interpretation: Negative Depression Screening Done: Yes 14588 - PHQ-9 Billing: Yes Source: Developed by Drs. Bertram L. Vira Garzon Kurt Kroenke and colleagues, with an educational fam from [employer]. Thrive Questionnaire Date Thrive assessed: 07/14/23 I am a: Patient What is your living situation today?: I have a steady place to live Within the past 12 months, did the food you bought not last and you didn't have the money to get more?: Never true Within the past 12 months, did you worry whether your food would run out before you got money to buy more?: Never true Do you have trouble paying for medicines?: No Do you have trouble getting transportation to medical appointments?: No Do you have trouble paying your heating and electricity bill?: No Do you have trouble taking care of your child, family member or friend?: No Do you have trouble with day-to-day activities such as bathing, preparing meals, shopping, managing finances, etc.?: No Are you currently unemployed and looking for a job?: No Are you interested in more education?: No THRIVE Score: 0 AUDIT C Alcohol Use Questionnaire (AUDIT-C) 1. How often do you have a drink containing alcohol?: Never Total Score: 0 SUKHI-7 AMB Questionnaire SUKHI-7 Date SUKHI - 7 assessed: 07/14/23 Feeling nervous, anxious, or on edge: 0 = Not at all Not being able to stop or control worryin = Not at all Worrying too much about different things: 0 = Not at all Trouble relaxin = Not at all Being so restless that it is hard to sit still: 0 = Not at all Becoming easily annoyed or irritable: 0 = Not at all Feeling afraid as if something awful might happen: 0 = Not at all Total SUKHI-7 score (0-4 normal; 5-9 mild; 10-14 moderate; 15-21 severe): 0 Source: Developed by Vira Traylor Kurt Kroenke and colleagues, with an educational fam from [employer]. SUKHI-7 Assessment Billing SUKHI-7 Assessment Tool: SUKHI-7 Assessment 03280 Review of Systems Const Denies body aches, Denies fever(s), Denies headache(s) and Denies weakness Eyes Denies change in vision ENT Denies dizziness, Denies headache(s) and Denies nasal congestion Card Denies rapid heart rate, Denies irregular heart rhythm, Denies leg edema, Denies lightheadedness and Denies dyspnea Resp Denies chest congestion, Denies cough and Denies dyspnea GI Denies abdominal pain, Denies change in bowel habits and Denies heartburn Denies urinary frequency, Denies dysuria and Denies urinary urgency Musc Denies back pain, Denies myalgias and Denies arthralgias Neuro Denies dizziness, Denies headache(s) and Denies weakness Aller/Immun Reports no additional complaints Physical exam (Primary Care) Vital Signs: Last Vital Signs Pulse 75 07/14/23 10:29 BP 124/58 L 07/14/23 10:29 Pulse Ox 100 07/14/23 10:29 Oxygen Delivery Method Room Air 07/14/23 10:29 BMI result Body Mass Index 22.7 Tobacco/Smoking Status: Tobacco use Status Tobacco use date assessed 07/14/23 07/14/23 10:33 Patient Tobacco Use Status Current everyday Tobacco 07/14/23 10:33 Tobacco use type Cigarette 07/14/23 10:33 e-Cigarette/Vaping Use Never Used 07/14/23 10:33 Are you ready to quit: No Tobacco cessation counseling provided: Yes Items discussed: Other PHQ-9: PHQ-9 Score PHQ-9: Total score 0 07/15/23 01:31 Depression Screening Interpretation: Negative Thrive Assessment: Date of Thrive Assessment Date Thrive assessed 07/14/23 07/14/23 10:37 Const General: cooperative, comfortable and no acute distress Orientation/consciousness: patient oriented x3 HENMT Ears: external ears normal, TM's normal bilaterally and EAC's normal General nose exam: Normal external nose present and No nasal discharge present Mouth: Normal oral and palatal mucosa present, oropharynx normal and moist mucous membranes Eyes General: appearance normal, both eyes and all related structures Conjunctivae: conjunctivae normal Pupils: Equal, round and reactive pupils present EOM: EOMs intact bilaterally Neck Neck: Yes full ROM, Yes no lymphadenopathy and Yes supple Resp Effort & Inspection: normal respiratory effort and able to speak in complete sentences Auscultation: clear to auscultation bilaterally Cardio Rate: regular rate Rhythm: regular rhythm Heart sounds: S1 normal heart sound present and S2 normal heart sound present Bruits: carotid bruit on the left GI Inspection: Yes normal to inspection Palpation (GI): Soft to palpation, nontender and no masses Auscultation: normal bowel sounds General: Yes no CVA tenderness Back/Spine/Pelvis Back: no CVA tenderness and No back tenderness Neuro General: patient oriented x3, gait normal, tone normal, moves all extremities, Normal light touch and pain sensation and no focal motor deficits Cranial nerves: Yes Equal, round and reactive pupils present Cognition (Neuro): normal cognition Gait exam (Neuro): Normal gait present Motor exam (neuro): 5/5 motor strength present throughout Extrem General: Yes full ROM, Yes no joint enlargement, Yes no pedal edema and Yes normal gait Psych Appearance: grossly normal Mental Status: mental status grossly normal Speech and movement: Normal speech and movement present Affect: normal affect Attitude: cooperative Thought process: Normal thought process present Thought content: Normal thought content present Assessment and Plan Assessment & Plan (1) Essential hypertension: Code(s): I10 - Essential (primary) hypertension Plan: Blood pressure at goal of less than 130/80. Continue with current medication. Reinforced importance of following a low sodium diet, getting regular exercise, and lowering stress levels. (2) Smoker unmotivated to quit: Code(s): F17.200 - Nicotine dependence, unspecified, uncomplicated Plan: Patient strongly advised to stop smoking, as smoking damages blood vessels, degenerative of joints and spine, damage to lungs and heart., predisposes to developing certain cancers like lung, breast, bladder, colon. Continue to try decreasing cigarette use by 1-2 cigarettes a day. Advised to monitor what triggers are for smoking so that this can be discussed on the next office visit. We can discuss different options to quit smoking when ready. (3) Left carotid bruit: Code(s): R09.89 - Other specified symptoms and signs involving the circulatory and respiratory systems Plan: Carotid ultrasound already ordered by Cardiology. Strongly encouraged to quit smoking, continue with present medications to control blood pressure Orders: Orders Basic Metabolic Panel Fasting 10/01/23 F17.200 - Nicotine dependence, unspecified, uncomplicated, I10 - Essential (primary) hypertension, R09.89 - Other specified symptoms and signs involving the circulatory and respiratory systems Aspartate Amino Transferase 10/01/23 F17.200 - Nicotine dependence, unspecified, uncomplicated, I10 - Essential (primary) hypertension, R09.89 - Other specified symptoms and signs involving the circulatory and respiratory systems Alanine Aminotransferase 10/01/23 F17.200 - Nicotine dependence, unspecified, uncomplicated, I10 - Essential (primary) hypertension, R09.89 - Other specified symptoms and signs involving the circulatory and respiratory systems Lipid Panel 10/01/23 F17.200 - Nicotine dependence, unspecified, uncomplicated, I10 - Essential (primary) hypertension, R09.89 - Other specified symptoms and signs involving the circulatory and respiratory systems Medications: New amlodipine 5 mg (1/2 x 10 mg) PO DAILY 90 tabs 3RF I10 - Essential (primary) hypertension Coding Level of Care Code Est Pt Level 4 (32252) Diagnoses Essential hypertension I10 Smoker unmotivated to quit F17.200 Left carotid bruit R09.89 Additional Codes SUKHI-7 Assessment Billing - SUKHI-7 Assessment Tool: SUKHI-7 Assessment 06744 ([id number])
== END 2023-07-14 11:00 | disposition home or self-care (01) ==
PROVIDERS: PCP Internal Medicine; Visit Provider Internal Medicine
DX: I10 Essential (primary) hypertension (principal); F17.210 Nicotine dependence, cigarettes, uncomplicated; R09.89 Other specified symptoms and signs involving the circulatory and respiratory systems
CPT/HCPCS: 99214

== ENCOUNTER → 2023-07-31 09:45 | Outpatient (REF) | payer MEDICARE, OTHER, SELFPAY ==
--- NOTE | ~2023-07-31 | US_ITS ---
EXAMINATION: US EXTRACRANIAL CAROTID DUPLEX, BILATERAL CLINICAL INFORMATION: Carotid bruit. History of smoking. Hypertension. Hyperlipidemia. COMPARISON: None available. TECHNIQUE: Real-time ultrasound and Doppler techniques (integrating B-mode 2-D vascular images, Doppler spectral analysis and color-flow Doppler imaging) were utilized to interrogate the extracranial carotid arteries, the vertebral arteries and proximal subclavian arteries bilaterally. The degree of stenosis is determined by criteria similar to NASCET. FINDINGS: Right Side: 1. There is moderate atherosclerotic plaque seen in the bifurcation/proximal ICA region. 2. The common carotid artery PSV proximally is 149 cm/s and distally 101 cm/s. 3. The proximal internal carotid artery velocities are 119 cm/s systolic and 36 cm/s diastolic. 4. The proximal external carotid artery PSV is 102 cm/s. 5. The vertebral artery shows antegrade flow. 6. The subclavian artery waveforms are biphasic. Left Side: 1. There is moderate atherosclerotic plaque seen in the bifurcation/proximal ICA region. 2. The common carotid artery PSV proximally is 140 cm/s and distally 106 cm/s. 3. The proximal internal carotid artery velocities are 113 cm/s systolic and 37 cm/s diastolic. 4. The proximal external carotid artery PSV is 165 cm/s. 5. The vertebral artery shows antegrade flow. 6. The subclavian artery waveforms are triphasic. US/US carotid duplex BI IMPRESSION: 1. RIGHT: Minimal, non-hemodynamically significant stenosis of the proximal right internal carotid artery corresponding to a 0-49% stenosis by velocity criteria. 2. LEFT: Minimal, non-hemodynamically significant stenosis of the proximal left internal carotid artery corresponding to a 0-49% stenosis by velocity criteria.
--- NOTE | 2023-07-31 09:48 | CA_ITS ---
Transthoracic Echocardiogram Patient (Last, First, Middle): Angela Dunham, Gender: Female Date of : 1955 Age: 67 Procedure Date: 07/31/2023 Procedure Type: Transthoracic Echocardiogram Location: OP Height: 152.4 cm Weight: 52.62 kg BSA: 1.48 m2 Heart Rate: 64 bpm BP: 122 / 54 mmHg [employer] Chief: EILEEN Referring MD: Dionicio Wong MD Superintendent Plant: Dionicio Wong MD Symptoms: I10 - Essential (primary) hypertension Study Quality: Adequate ECG Rhythm: Sinus Conclusions: - The left ventricular systolic function is normal. The calculated ejection fraction is 68% by biplane method. - No obvious valvular pathology seen on this study. Findings Left Ventricle Normal left ventricular cavity size. The left ventricular systolic function is normal. The calculated ejection fraction is 68% by biplane method. There is no evidence of regional wall motion abnormalities. Diastolic function is normal for age. There is mild septal asymmetric hypertrophy. Right Ventricle Normal right ventricular cavity size and systolic function. Atria Both atria are normal in size. Aortic Valve There is a normal trileaflet aortic valve. There is no aortic valve stenosis. There is no aortic valve regurgitation. Mitral Valve The mitral valve appears normal. There is no mitral valve regurgitation. There is no mitral valve stenosis. Pulmonic Valve The pulmonic valve is likely normal. Tricuspid Valve Normal tricuspid valve structure. There is trace tricuspid valve regurgitation. There is no evidence of pulmonary hypertension. Great Vessels The asc aorta is normal in size. Venous The inferior vena cava is normal in size and collapses greater than 50% with inspiration. Pericardium/Pleural There is no evidence of pericardial effusion. Prior Study Comparison No prior study available for comparison. Recommendations, Care & Conclusions No obvious valvular pathology seen on this study. Measurements 2D Linear Measurements IVSd: 1.28 0.6-0.9/0.6-1.0 cm LVIDd: 4.07 3.9-5.3/4.2-5.9 cm LVIDd Index: 2.75 2.4-3.2/2.2-3.1 cm/m2 LVIDs: 2.25 2.0-3.6 cm LVPWd: 0.63 0.7-1.1 cm LA Diam: 3.20 2.7-3.8/3.0-4.0 cm LAIDs Index: 2.16 1.5-2.3 cm/m2 LV Mass: 151.73 67-162/88-224 g LV Mass Index: 102.52 43-95/49-115 g/m2 LVOT Diam: 1.90 3.0+(-)1.3 cm 2D Systolic Function EF 4C: 61.70 >55% EF 2C: 72.60 >55% EF BiP: 68.00 >55% Mitral Valve MV Pk E: 1.03 MV PK A: 0.75 MV Decel Time: 175.00 E/A: 1.40 E'Lateral: 6.53 E'Medial: 6.42 E/E' Med: 16.00 E/E' Lat: 15.80 PHT: 51.00 MVA PHT: 4.31 Decel Haakon: 5.89 Aortic Valve AoV Pk Eddi: 1.50 AoV Pk Grad: 9.00 LUANA: 1.91 LVOT LVOT Pk Eddi: 1.01 LVOT Mn Eddi: 0.72 LVOT VTI: 0.24 LVOT Pk Grad: 4.00 LVOT Mn Grad: 2.00 LVOT Diam: 1.90 LVOT Area: 2.84 Diastolic Function MV Pk E: 1.03 MV Pk A: 0.75 E/A: 1.40 E'Medial: 6.42 E/E' Med: 16.00 E' Laterial: 6.53 E/E' Lat: 15.80 Right Ventricle TVS' Eddi: 11.90 Tricuspid Valve TR Pk Eddi: 2.16 TR Pk Grad: 19.00 RA Press: 3.00 RVSP: 22.00 Great Vessels Aorta Sinus of Valsalva: 2.50 2.0-3.5 cm Ao Asc: 2.50 2.1-3.4 cm Pulmonary Veins Pulm Vein S/D 1.30 Pulmonary Valve PV Pk Eddi: 1.51 Peak PV Grad: 9.00 Updated in Other Vendor System with Status of Final Calvin Menard MD electronically signed on 08/02/2023 10:10:45 AM with status of Final
== END ==
LOC: HO.CARD 09:45
PROVIDERS: PCP Internal Medicine; Visit Provider Internal Medicine Cardiovascular Disease
DX: R09.89 Other specified symptoms and signs involving the circulatory and respiratory systems (principal); I10 Essential (primary) hypertension
CPT/HCPCS: 93306; 93880

== ENCOUNTER → 2023-07-31 09:48 | Outpatient (BNV) | payer MEDICARE, OTHER, SELFPAY | PROVIDERS: PCP Internal Medicine; Visit Provider Internal Medicine | DX: I10 Essential (primary) hypertension (principal) | CPT/HCPCS: 93306 ==

== ENCOUNTER 2023-10-11 09:44 | Outpatient (REF) | payer MEDICARE, OTHER, SELFPAY ==
[2023-10-11 11:31] LABS: Alanine Aminotransferase 16 U/L (0-31); Anion Gap 15 (12-20); Aspartate Amino Transferase 16 U/L (5-31); Blood Urea Nitrogen 10 mg/dL (9-16); Calcium 9.4 mg/dL (8.4-10.2); Carbon Dioxide 22 mmol/L (22-29); Chloride 106 mmol/L (96-108); Cholesterol 133 mg/dL (<200); Estimated Glomerular Filt Rate 59; Glucose Fasting 105 mg/dL (60-99); HDL Cholesterol 45 mg/dL (>40); LDL Cholesterol Calculated 63 mg/dL (<100); Sodium 139 mmol/L (135-145); Triglycerides 128 mg/dL (<150)
== END 2023-10-11 09:45 | disposition home or self-care (01) ==
LOC: HO.HMGCLDS 09:44
PROVIDERS: PCP Internal Medicine; Visit Provider Internal Medicine
DX: I10 Essential (primary) hypertension (principal); R09.89 Other specified symptoms and signs involving the circulatory and respiratory systems; F17.200 Nicotine dependence, unspecified, uncomplicated
CPT/HCPCS: 36415; 80048; 80061; 84450; 84460

== ENCOUNTER 2023-10-15 14:41 | Outpatient (AMB) | payer MEDICARE, OTHER, SELFPAY ==
[2023-10-15 14:49] VITALS: BP 124/62; PULSE 78; O2SAT 99; BMI 22.0
--- NOTE | 2023-10-15 14:49 | MHC.OFFVIS ---
Vital Signs 10/15/23 14:49 Height 5 ft Weight 112 lb 6.972 oz BMI 22.0 BP 124/62 Blood Pressure Location Lt brachial Position Sitting Pulse 78 Pulse Source Pulse Oximeter Pulse Oximetry (%) 99 Oxygen Delivery Method Room Air Intake Visit Reasons: 3 mth f/up testing Allergies celecoxib Adverse Reaction (Unknown, Verified 07/15/23 01:14) dry mouth , feels weak /sluggish Medication List - Last Reconciled 10/15/23 by Apple Shahid NP amlodipine 5 mg (1/2 x 10 mg) PO DAILY ascorbic acid (vitamin C) 1,000 mg PO DAILY aspirin (Adult Aspirin Regimen) 81 mg PO DAILY atorvastatin 20 mg PO BEDTIME cholecalciferol (vitamin D3) 75 mcg PO DAILY diclofenac sodium 1% (Arthritis Pain (diclofenac)) 2 grams topical DAILY PRN lisinopril 20 mg PO DAILY metoprolol succinate ER 25 mg PO DAILY HPI Comments Details: 67-year-old female presents today for a follow-up. She reports she has been doing well. Her chest pains have been intermittent for almost 20 years. She stopped her hydrochlorothiazide due to low SPBs and feeling dizzy. She reports her blood pressures have been 120s/70s. She still smokes but has been cutting back. REPLACED BY [facility] Medical History (Updated 10/16/23 @ 10:53 by Apple Shahid NP) Carotid stenosis, bilateral Nicotine dependence, cigarettes, uncomplicated Essential hypertension Pulmonary nodule Intermittent left-sided chest pain Uncontrolled hypertension Emphysema lung Osteopenia of left femoral neck Insomnia Essential hypertension Lumbar degenerative disc disease Surgical History Hx of colonoscopy History of tonsillectomy History of tubal ligation Family History Father HTN (hypertension) Cancer of prostate Hyperlipidemia Mother HTN (hypertension) Colon cancer Breast cancer Lung cancer Maternal Grandmother No problems noted. Maternal Grandfather Lung cancer Paternal Grandmother No problems noted. Paternal Grandfather Colon cancer Brother No problems noted. Brother No problems noted. Sister No problems noted. Son No problems noted. Social History Housing: House Alcohol intake: current Patient Tobacco Use Status: Current everyday Tobacco user Tobacco use type: Cigarette Cigarette Packs Per Day: 1.5 Cigarettes Per Day: 10 Years Smoked: 23 e-Cigarette/Vaping Use: Never Used Second Hand Smoke Exposure: No service: No Current occupational status: retired Cognitive needs: No Hearing needs: No Vision needs: Yes Review of Systems Const Denies weakness ENT Denies dizziness Card Denies chest pain, Denies chest pain with activity, Denies syncope, Denies rapid heart rate, Denies pedal edema, Denies edema, Denies leg edema, Denies lightheadedness, Denies palpitations, Denies dyspnea, Denies dyspnea on exertion and Denies orthopnea Resp Denies cough, Denies dyspnea and Denies dyspnea on exertion GI Denies hematochezia and Denies change in stool character Musc Denies abnormal gait, Denies muscle cramps, Denies muscle weakness, Denies numbness, Denies radiating pain into limb and Denies tingling Neuro Denies abnormal gait, Denies dizziness, Denies syncope, Denies numbness, Denies tingling and Denies weakness Endo Denies palpitations Physical Exam Vital Signs: Last Vital Signs Pulse 78 10/15/23 14:49 BP 124/62 10/15/23 14:49 Pulse Ox 99 10/15/23 14:49 Oxygen Delivery Method Room Air 10/15/23 14:49 BMI result Body Mass Index 22.0 Const General: healthy appearing and no acute distress Orientation/consciousness: patient oriented x3 HEENT Head: Yes normal to inspection Eyes General: appearance normal, both eyes and all related structures Neck Neck: Yes normal visual inspection Chest Chest palpation & inspection: normal inspection of the chest Resp Effort & Inspection: normal respiratory effort Auscultation: clear to auscultation bilaterally Cardio Jugular venous distension: no JVD Palpation: normal PMI Rate: regular rate Rhythm: regular rhythm Heart sounds: S1 normal heart sound present, S2 normal heart sound present, no click, no gallops, no murmurs and no rubs GI Inspection: Yes normal to inspection Palpation (GI): Soft to palpation Skin General skin exam: no rashes or lesions noted Neuro General: patient oriented x3 Extrem General: Yes normal to inspection Psych Appearance: grossly normal Results Reviewed Results Reviewed: Exercise stress test exercise 5 min 34 sec of Shola protocol achjieving 85% MPHR, without anginal symptoms, with asymptomatic isolated PVCs, with max BP 170/30 at 2 min recovery, without EKG changes. Test reviewed with Dr. Wong. US/US carotid duplex BI IMPRESSION: 1. RIGHT: Minimal, non-hemodynamically significant stenosis of the proximal right internal carotid artery corresponding to a 0-49% stenosis by velocity criteria. 2. LEFT: Minimal, non-hemodynamically significant stenosis of the proximal left internal carotid artery corresponding to a 0-49% stenosis by velocity criteria. Assessment & Plan Assessment & Plan (1) Carotid stenosis, bilateral: Code(s): I65.23 - Occlusion and stenosis of bilateral carotid arteries Category: Medical Plan: Minimal, non-hemodynamically significant stenosis on biltateral carotids. Started on atorvastatin 2omg. Discussed about heart healthy lifestyle to decrease progression. (2) Essential hypertension: Code(s): I10 - Essential (primary) hypertension Category: Medical Plan: On amlodipine 5mg QD. She stopped HCTZ due to hypotension. Monitor blood pressures at home periodically. (3) Nicotine dependence, cigarettes, uncomplicated: Code(s): F17.210 - Nicotine dependence, cigarettes, uncomplicated Category: Medical Plan: Cutting back. Encouraged complete cessation. No ST changed on stress test or reproduced chest pains. (4) Chest pain: Code(s): R07.9 - Chest pain, unspecified Category: Medical Plan: Chronic chest pains. Coding Level of Care Code Est Pt Level 4 (67732) Diagnoses Carotid stenosis, bilateral I65.23 Essential hypertension I10 Nicotine dependence, cigarettes, uncomplicated F17.210 Chest pain R07.9
== END 2023-10-15 15:23 | disposition home or self-care (01) ==
PROVIDERS: PCP Internal Medicine; Visit Provider Nurse Practitioner
DX: I65.23 Occlusion and stenosis of bilateral carotid arteries (principal); I10 Essential (primary) hypertension; F17.210 Nicotine dependence, cigarettes, uncomplicated; R07.9 Chest pain, unspecified
CPT/HCPCS: 99214

== ENCOUNTER → 2023-10-15 14:41 | Outpatient (BNVA) | payer MEDICARE, OTHER, SELFPAY | PROVIDERS: PCP Internal Medicine; Visit Provider Nurse Practitioner | DX: I65.23 Occlusion and stenosis of bilateral carotid arteries (principal); I10 Essential (primary) hypertension; R07.9 Chest pain, unspecified; F17.210 Nicotine dependence, cigarettes, uncomplicated | CPT/HCPCS: 99212 ==

== ENCOUNTER 2023-10-17 11:30 | Outpatient (AMB) | payer MEDICARE, OTHER, SELFPAY ==
--- NOTE | 2023-10-17 11:28 | MHC.PC.OV ---
Intake Visit Reasons: 3 month f/u [phone] android Intake Note: Pt is having a 3 mo.f/u Allergies celecoxib Adverse Reaction (Unknown, Verified 10/17/23 11:46) dry mouth , feels weak /sluggish Medication List - Last Reconciled 10/17/23 by Tenisha Neely MD amlodipine 5 mg (1/2 x 10 mg) PO DAILY ascorbic acid (vitamin C) 1,000 mg PO DAILY aspirin (Adult Aspirin Regimen) 81 mg PO DAILY atorvastatin 20 mg PO BEDTIME cholecalciferol (vitamin D3) 75 mcg PO DAILY diclofenac sodium 1% (Arthritis Pain (diclofenac)) 2 grams topical DAILY PRN lisinopril 20 mg PO DAILY metoprolol succinate ER 25 mg PO DAILY Tobacco use date assessed: 10/17/23 Fall risk assessment: No Falls in past year Last assessed Fall Risk: 10/17/23 Dental Screening Dental Screen Date: 10/17/23 Did you have a dental visit in the last 12 months?: Yes Did you have a dental problem in the last 6 months where you did not have access to dental care?: No Was dental information given to patient?: Patient has dentist HPI 3 month f/u [phone] android HPI Details 67-year-old lady with hypertension, arthritis, here for follow-up on her lipids. Has been compliant with taking her atorvastatin 20 mg daily. Patient states blood pressure has been running well and controlled on lisinopril, metoprolol and amlodipine. Denies any chest pain, no headache or lightheadedness. Had recent fasting labs done which electrolytes, slightly decreased renal function, lipid panel within normal limits, but fasting glucose was elevated. She is also due for her repeat bone density scan, last done in 2019 which showed presence of osteopenia, no history of fracture. She is also requesting a referral to Dermatology for routine skin cancer screening. [facility] Medical History (Updated 10/17/23 @ 12:01 by Tenisha Neely MD) Impaired fasting glucose Carotid stenosis, bilateral Nicotine dependence, cigarettes, uncomplicated Essential hypertension Pulmonary nodule Intermittent left-sided chest pain Uncontrolled hypertension Emphysema lung Osteopenia of left femoral neck Insomnia Lumbar degenerative disc disease Surgical History Hx of colonoscopy History of tonsillectomy History of tubal ligation Family History Father HTN (hypertension) Cancer of prostate Hyperlipidemia Mother HTN (hypertension) Colon cancer Breast cancer Lung cancer Maternal Grandmother No problems noted. Maternal Grandfather Lung cancer Paternal Grandmother No problems noted. Paternal Grandfather Colon cancer Brother No problems noted. Brother No problems noted. Sister No problems noted. Son No problems noted. Social History Housing: House Alcohol intake: current Patient Tobacco Use Status: Current everyday Tobacco user Tobacco use type: Cigarette Cigarette Packs Per Day: 1.5 Cigarettes Per Day: 10 Years Smoked: 23 Packs Per Year: 35 Packs per year/per ci.50 e-Cigarette/Vaping Use: Never Used Second Hand Smoke Exposure: No service: No Current occupational status: retired Cognitive needs: No Hearing needs: No Vision needs: Yes Questionnaire Thrive Questionnaire Date Thrive assessed: 07/14/23 SUKHI-7 AMB Questionnaire SUKHI-7 Date SUKHI - 7 assessed: 07/14/23 Source: Developed by Drs. Bertram Garzon, Vira Hunter, Josiah Ventura and colleagues, with an educational fam from [employer]. Review of Systems Const Reports no additional complaints ENT Denies dizziness Card Denies chest pain, Denies syncope, Denies rapid heart rate, Denies edema, Denies lightheadedness, Denies palpitations, Denies dyspnea and Denies dyspnea on exertion Resp Denies cough, Denies dyspnea and Denies dyspnea on exertion GI Denies hematochezia and Denies change in stool character Reports no additional complaints Musc Denies abnormal gait, Denies muscle cramps, Denies muscle weakness, Denies numbness, Denies radiating pain into limb and Denies tingling Neuro Denies abnormal gait, Denies dizziness, Denies syncope, Denies numbness and Denies tingling Psych Reports no additional complaints Endo Denies palpitations Philip/Lymph Reports no additional complaints Physical exam (Primary Care) Tobacco/Smoking Status: Tobacco use Status Tobacco use date assessed 10/17/23 10/17/23 11:29 Patient Tobacco Use Status Current everyday Tobacco 10/17/23 11:29 Tobacco use type Cigarette 10/17/23 11:29 e-Cigarette/Vaping Use Never Used 10/17/23 11:29 Thrive Assessment: Date of Thrive Assessment Date Thrive assessed 07/14/23 10/17/23 11:29 Telehealth Telehealth Telehealth Platform: [email or web address] Location of provider rendering services: practice address Location of patient: address on file Patient Identification confirmed using: Name, : Yes Telehealth method: video Patient verbally consented to treatment: Yes Patient verbally consented to billing insurance company: Yes Patient informed of any privacy concerns related to visit: Yes Minutes spent on Phone/Video with Pt.: 15 Results Reviewed Results Reviewed: shabbir: RolyAngela Age/Sex: 67/F : 1955 Unit#: [id number] Attend Dr: Tenisha Neely MD Re10/11/23 Status: DEP REF Location: [facility] Disch: SPEC : [id number] MIGUE: 10/11/23 STATUS: COMP REQ : [id number] RECD: 10/11/23-[address]: Tenisha Neely MD COMP: 10/11/23 ENTERED: 10/11/[address]: ORDERED: Met Prof Fast, AST, ALT, Lipid Panel Test Result Flag Reference Sodium 139 135-145 mmol/L Potassium 4.0 # 3.3-5.1 mmol/L CL 106 96-108 mmol/L CO2 22 22-29 mmol/L Gap 15 12-20 BUN 10 9-16 mg/dL Creat 0.95 0.5-1.4 mg/dL EGFR 59 NOTE: For -[place] individuals, multiply the result by 1.210. Chronic Kidney Disease: Estimated GFR < 60 mL/min/1.73m2 Severe Kidney Disease: Estimated GFR < 15 mL/min/1.73m2 FBS 105 H 60-99 mg/dL A fasting glucose from 100-125 mg/dl is considered impaired (pre-diabetes). CA 9.4 8.4-10.2 mg/dL AST (GOT) 16 5-31 U/L ALT (GPT) 16 0-31 U/L Triglyceride 128 <150 mg/dL Desirable Triglyceride: less than 150 mg/dL Borderline High Triglyceride 150-199 mg/dL High Triglyceride: 200-499 mg/dL Very High Triglyceride: greater than or equal to 5OO mg/dL Cholesterol 133 <200 mg/dL Desirable Cholesterol: less than 200 mg/dL Borderline High Cholesterol: 200-239 mg/dL High Cholesterol: greater than 239 mg/dL LDL Calculated 63 <100 mg/dL Desirable LDL: less than 100 mg/dL Near Optimal/Above Optimal LDL: 110-129 mg/dL Borderline High LDL: 130-159 mg/dL High LDL: 160-189 mg/dL Very High LDL: greater than or equal to 190 mg/dL HDL 45 >40 mg/dL Desirable HDL: greater than 40 mg/dL Note: This HDL assay may give artificially low results in patients with liver disease. Assessment and Plan Assessment & Plan (1) Screening for Malignant Neoplasm of Skin: Code(s): Z12.83 - Encounter for screening for malignant neoplasm of skin Plan: Ordered referral to Dermatology Clinic for skin cancer screening. (2) Osteopenia of left femoral neck: Comment: Noted on bone density done 2018, no change from previous Code(s): M85.852 - Other specified disorders of bone density and structure, left thigh Plan: Will repeat another bone density scan this year. Continue with taking vitamin-D 3 and get regular weight-bearing exercise, take calcium from dietary sources (3) Nicotine dependence, cigarettes, uncomplicated: Code(s): F17.210 - Nicotine dependence, cigarettes, uncomplicated Plan: Patient strongly advised to stop smoking, as smoking damages blood vessels, degenerative of joints and spine, damage to lungs and heart., predisposes to developing certain cancers like lung, breast, bladder, colon. Recommended to try decreasing cigarette use by 1-2 cigarettes a day. Advised to monitor what triggers are for smoking so that this can be discussed on the next office visit. We can discuss different options to quit smoking when ready. (4) Impaired fasting glucose: Code(s): R73.01 - Impaired fasting glucose Plan: Latest labs showed elevated fasting glucose. Impaired glucose metabolism increase his dose risk for developing diabetes mellitus type 2, as well as heart attack and stroke later on. Lifestyle changes at just weight loss, healthy eating habits, and regular exercise are important, and can prevent the progression to diabetes Orders: Orders XR DEXA axial skeleton 10/17/23 M85.852 - Other specified disorders of bone density and structure, left thigh Alanine Aminotransferase 6 Months F17.210 - Nicotine dependence, cigarettes, uncomplicated, I10 - Essential (primary) hypertension, M85.852 - Other specified disorders of bone density and structure, left thigh, R73.01 - Impaired fasting glucose Basic Metabolic Panel Fasting 6 Months F17.210 - Nicotine dependence, cigarettes, uncomplicated, I10 - Essential (primary) hypertension, M85.852 - Other specified disorders of bone density and structure, left thigh, R73.01 - Impaired fasting glucose Vitamin D 25-OH Total 6 Months F17.210 - Nicotine dependence, cigarettes, uncomplicated, I10 - Essential (primary) hypertension, M85.852 - Other specified disorders of bone density and structure, left thigh, R73.01 - Impaired fasting glucose Hemoglobin A1c 6 Months F17.210 - Nicotine dependence, cigarettes, uncomplicated, I10 - Essential (primary) hypertension, M85.852 - Other specified disorders of bone density and structure, left thigh, R73.01 - Impaired fasting glucose Lipid Panel 6 Months F17.210 - Nicotine dependence, cigarettes, uncomplicated, I10 - Essential (primary) hypertension, M85.852 - Other specified disorders of bone density and structure, left thigh, R73.01 - Impaired fasting glucose Aspartate Amino Transferase 6 Months F17.210 - Nicotine dependence, cigarettes, uncomplicated, I10 - Essential (primary) hypertension, M85.852 - Other specified disorders of bone density and structure, left thigh, R73.01 - Impaired fasting glucose Referrals Dermatology Referral Z12.83 - Encounter for screening for malignant neoplasm of skin Coding Level of Care Code Tele Est Pt Level 4 (84223) Diagnoses Screening for Malignant Neoplasm of Skin Z12.83 Osteopenia of left femoral neck M85.852 Nicotine dependence, cigarettes, uncomplicated F17.210 Impaired fasting glucose R73.01
== END 2023-10-17 14:22 | disposition home or self-care (01) ==
LOC: HO.HMGC 11:30
PROVIDERS: PCP Internal Medicine; Visit Provider Internal Medicine
DX: M85.852 Other specified disorders of bone density and structure, left thigh (principal); Z12.83 Encounter for screening for malignant neoplasm of skin; F17.210 Nicotine dependence, cigarettes, uncomplicated; R73.01 Impaired fasting glucose
CPT/HCPCS: 99214

== ENCOUNTER 2023-10-28 10:47 | Outpatient (REF) | payer MEDICARE, OTHER, SELFPAY ==
--- NOTE | ~2023-10-28 | CT_ITS ---
EXAMINATION: CT LOW-DOSE SCREENING CHEST WITHOUT CONTRAST CLINICAL INFORMATION: Nicotine dependence, cigarettes, uncomplicated. The patient is a current smoker with a 40 pack-year history of smoking. COMPARISON: CT chest 10/22/2022. TECHNIQUE: Multidetector volumetric CT imaging of the chest is performed on a Siemens SOMATOM Perspective scanner without contrast using low dose technique. Additional 2D coronal and sagittal reformatted images and axial 3D maximum intensity projection (MIP) images are generated on the CT workstation. This CT examination was performed using dose optimization techniques as appropriate, variously including the following: *Automated exposure control *Adjustment of mA and/or kV according to patient size (this includes techniques or standardized protocols for targeted exams where dose is matched to indication/reason for exam; i.e. extremities or head) *Use of iterative reconstruction technique TOTAL EXAM DLP: 63 mGy-cm. CTDIvol: 1.6 mGy. FINDINGS: PULMONARY NODULES: There is a right upper lobe ground-glass opacity which appears larger and more dense than previously seen increasing in size from 6 mm to 10 mm (5:79 compare prior 5:86). In addition, there is a new solid-appearing component measuring about 4 mm (5:80 and fuller images). There is another ground-glass opacity seen just below this with a more complex area of mixed density which appears unchanged compared to prior (5:91-123). There is a 4 mm left lower lobe as well as right lower lobe pulmonary nodule unchanged (5:268 and 5/289 compare prior 5:280 and 5:299). LUNGS: Lungs bilaterally symmetrically expanded. There is moderate emphysema and bronchial thickening. No effusion or pneumothorax. Central airways patent. MEDIASTINUM: No mediastinal, hilar or axillary adenopathy or free fluid collection. CORONARY ARTERY CALCIFICATION: None visualized on this study. THYROID GLAND: Unremarkable to the extent seen. CARDIOVASCULAR STRUCTURES: Aortic and heart size normal. No pericardial effusion. CHEST WALL/AXILLA: Unremarkable. UPPER ABDOMEN: Included portions of the solid organs in the upper abdomen unremarkable on noncontrast imaging. OSSEOUS STRUCTURES: No suspicious focal findings. CT/CT lung screening IMPRESSION: 1. There is a right upper lobe groundglass opacity which appears larger and more dense than previous study. In addition, there is a new solid-appearing component measuring about 4 mm. This finding is considered very suspicious 2. Other pulmonary nodules are unchanged. 3. Moderate emphysema and bronchial thickening. ASSESSMENT: 1. Lung-RADS Category 4B: Suspicious findings. N/A 2. Lung-RADS Category S: Negative. There are no clinically significant or potentially clinically significant findings not related to the lungs requiring urgent additional evaluation. RECOMMENDATION: Tissue sampling or PET/CT is recommended depending on the probability of malignancy and comorbidities.
== END 2023-10-28 10:48 | disposition home or self-care (01) ==
LOC: HO.CT 10:47
PROVIDERS: PCP Internal Medicine; Visit Provider Physician Assistant Medical
DX: Z12.2 Encounter for screening for malignant neoplasm of respiratory organs (principal); F17.210 Nicotine dependence, cigarettes, uncomplicated
CPT/HCPCS: 71271

== ENCOUNTER 2023-12-08 11:24 | Outpatient (AMB) | payer MEDICARE, OTHER, SELFPAY ==
--- NOTE | 2023-12-08 11:34 | A.OFFVIS_ITS ---
Vital Signs 12/08/23 11:36 Height 5 ft Weight 108 lb BMI 21.1 BP 136/63 Blood Pressure Location Rt brachial Position Sitting Pulse 73 Intake Visit Reasons: Rt upper lobe lung opacity Intake Note: Patient referred by pcp Dr. Neely for Rt upper lung opacity. Patient c/o: SOB, fatigue. Feels little lump on Lt midline back. Lung CT: 10-28-2023. PFT's scheduled 12-27-2023/11am. Slitting Machine Feeder Required: No Slitting Machine Feeder Services: Slitting Machine Feeder Present Accompanied by: spouse Dar Allergies celecoxib Adverse Reaction (Unknown, Verified 12/08/23 11:35) dry mouth , feels weak /sluggish Medication List - Last Reconciled 12/08/23 by Jordan Trejo MD amlodipine 5 mg (1/2 x 10 mg) PO DAILY ascorbic acid (vitamin C) 1,000 mg PO DAILY aspirin (Adult Aspirin Regimen) 81 mg PO DAILY atorvastatin 20 mg PO BEDTIME cholecalciferol (vitamin D3) 75 mcg PO DAILY diclofenac sodium 1% (Arthritis Pain (diclofenac)) 2 grams topical DAILY PRN lisinopril 20 mg PO DAILY metoprolol succinate ER 25 mg PO DAILY HPI Comments Details: Patient presents with her for evaluation of an enlarging asymptomatic right upper lobe lung mass. Patient has been undergoing surveillance with serial CT scans and the most recent 1 demonstrates appreciable size increase of this lesion. Patient has a very longstanding history of smoking since age 22. She has had half pack per day minimum since that time. She denies any chronic cough, hemoptysis, chest pain, or wheezing. Her appetite, energy, and weight are stable. Chart was reviewed and patient evaluated [facility] Medical History Abnormal CT lung screening Impaired fasting glucose Carotid stenosis, bilateral Nicotine dependence, cigarettes, uncomplicated Essential hypertension Pulmonary nodule Intermittent left-sided chest pain Uncontrolled hypertension Emphysema lung Osteopenia of left femoral neck Insomnia Lumbar degenerative disc disease Surgical History Hx of colonoscopy History of tonsillectomy History of tubal ligation Family History Father HTN (hypertension) Cancer of prostate Hyperlipidemia Mother HTN (hypertension) Colon cancer Breast cancer Lung cancer Maternal Grandmother No problems noted. Maternal Grandfather Lung cancer Paternal Grandmother No problems noted. Paternal Grandfather Colon cancer Brother No problems noted. Brother No problems noted. Sister No problems noted. Son No problems noted. Social History Housing: House Alcohol intake: current Patient Tobacco Use Status: Current everyday Tobacco user Tobacco use type: Cigarette Cigarette Packs Per Day: 1.5 Cigarettes Per Day: 10 Years Smoked: 23 e-Cigarette/Vaping Use: Never Used Second Hand Smoke Exposure: No service: No Current occupational status: retired Cognitive needs: No Hearing needs: No Vision needs: Yes Physical Exam Vital Signs: Last Vital Signs Pulse 73 12/08/23 11:36 BP 136/63 12/08/23 11:36 BMI result Body Mass Index 21.1 HEENT Other: No obvious cervical, periclavicular, or axillary adenopathy bilaterally. Chest Other: Chest breath sounds bilaterally, consistent with mild COPD, HS 1 in 2 GI Other: Abdomen is soft, benign Assessment & Plan Assessment & Plan (1) Right upper lobe pulmonary nodule: Code(s): R91.1 - Solitary pulmonary nodule Category: Surgical Plan: I reviewed with the patient various therapeutic options. My current recommendation is to arrange for a collection of pulmonary function tests, PET scan, and interventional radiologic biopsy of this suspicious right lung lesion and direct further therapy based on these results. Another option would be follow-up CT scan in 3 months' time. Patient was opted for the former. Arrangements were made for all the above. She will see me after her workup has been completed. All questions answered. (2) Abnormal CT lung screening: Code(s): R91.8 - Other nonspecific abnormal finding of lung field Category: Surgical Plan: See above Orders: Orders PET CT fusion whole body 12/08/23 R91.1 - Solitary pulmonary nodule, R91.8 - Other nonspecific abnormal finding of lung field CT biopsy lung RT 12/08/23 R91.1 - Solitary pulmonary nodule, R91.8 - Other nonspecific abnormal finding of lung field Coding Level of Care Code New Pt Level 4 (63675) Diagnoses Right upper lobe pulmonary nodule R91.[address] lung screening R91.8
[2023-12-08 11:36] VITALS: BP 136/63; PULSE 73; BMI 21.1
== END 2023-12-08 11:55 | disposition home or self-care (01) ==
PROVIDERS: PCP Internal Medicine; Referring Provider Internal Medicine; Visit Provider Surgery
DX: R91.1 Solitary pulmonary nodule (principal); R91.8 Other nonspecific abnormal finding of lung field
CPT/HCPCS: 99204

== ENCOUNTER → 2023-12-08 11:24 | Outpatient (BNVA) | payer MEDICARE, OTHER, SELFPAY | PROVIDERS: PCP Internal Medicine; Referring Provider Internal Medicine; Visit Provider Surgery | DX: R91.1 Solitary pulmonary nodule (principal); R91.8 Other nonspecific abnormal finding of lung field | CPT/HCPCS: 99202 ==

== ENCOUNTER 2023-12-27 10:45 | Outpatient (REF) | payer MEDICARE, OTHER, SELFPAY ==
--- NOTE | 2023-12-27 11:00 | PFT_ITS ---
Flows: FEV1: 119 % of predicted at 2.40 L FVC: 126 % of predicted at 3.23 L FEV1/FVC: 74 % Bronchodilator response: Present in small to medium airways only Volumes: Total lung capacity: 116 % of predicted at 5.05 L Residual volume: 105 % of predicted at 1.69 L Slow vital capacity: 122 % of predicted at 3.35 L Expiratory reserve volume: 193 % of predicted at 1.22 L Diffusion capacity: Mildly decreased Impression: No obstructive or restrictive ventilatory defect. Bronchodilator response present in small to medium airways only. Decreased diffusion capacity suggests emphysema. MTDD
[2023-12-27 11:07] VITALS: PULSE 67; RESP 16; O2SAT 99
== END 2023-12-27 10:46 | disposition home or self-care (01) ==
LOC: HO.RESP 10:45
PROVIDERS: PCP Internal Medicine; Visit Provider Physician Assistant Medical
DX: R91.1 Solitary pulmonary nodule (principal); F17.210 Nicotine dependence, cigarettes, uncomplicated
CPT/HCPCS: 94010; 94640; 94727; 94729

== ENCOUNTER 2023-12-29 08:21 | Day surgery (SDC) | payer MEDICARE, OTHER, SELFPAY ==
[2023-12-29] VITALS (8 sets, daily range): BP systolic 135–150; BP diastolic 49–67; PULSE 57–70; RESP 14–18; TEMP 36.9–37.1; O2SAT 99–100; BMI 21.5
--- NOTE | ~2023-12-29 | XR_ITS ---
EXAMINATION: XR CHEST CLINICAL INFORMATION: Status post right lung biopsy. COMPARISON: CT-guided right lung biopsy dated 12/29/2023. TECHNIQUE: Frontal view of the chest was obtained. FINDINGS: The heart, great vessels, pulmonary vasculature and mediastinum are normal. There is mild right apical postbiopsy hemorrhage, consistent with CT biopsy findings. No pneumothorax is seen. There is no significant pleural effusion. No acute osseous abnormality is seen. XR/XR chest 1V IMPRESSION: There is mild right apical postbiopsy hemorrhage. No pneumothorax is seen.
--- NOTE | ~2023-12-29 | XR_ITS ---
EXAMINATION: XR CHEST CLINICAL INFORMATION: 2 hours status post right lung biopsy COMPARISON: Chest radiograph 12:20 PM same day TECHNIQUE: Frontal view of the chest was obtained. FINDINGS: No pneumothorax is seen on this chest x-ray performed [address]-guided right lung biopsy XR/XR chest 1V IMPRESSION: No pneumothorax is seen on this chest x-ray performed [address]-guided right lung biopsy.
--- NOTE | ~2023-12-29 | CT_ITS ---
Enlarging right upper lobe groundglass nodule. Current smoker PROCEDURES: 1. Limited preprocedure CT of the chest. Permanent images saved in PACS. 2. CT-guided biopsy of the right lung nodule. 3. Limited postprocedure CT of the chest. Permanent images saved in PACS. CLINICIANS: Sin Dior PA-C MEDICATIONS: -Versed 1.5 mg, Fentanyl 75 mcg, and lidocaine 1% 10 mL SQ -Antibiotics: None -For additional details, please see nursing flowsheet. COMPLICATIONS: None ESTIMATED BLOOD LOSS: < 5 ml CONTRAST: None SPECIMENS: 2 x 20 g cores were sent for pathology. 22-gauge aspiration was sent for cytology. MODERATE SEDATION TIME: 35 min PROCEDURE NOTE: The procedure, risks, benefits, and alternatives were carefully explained to the patient and written informed consent was obtained. The patient was placed prone on the CT table. A timeout was performed. A limited CT of the chest was performed to localize the right lung nodule and choose appropriate needle entry and trajectory. The patient was prepped and draped in usual sterile fashion. The skin and deeper soft tissues were anesthetized with lidocaine. Under CT guidance, a19 gague trocar needle was advanced to the right lung nodule. A 20 gauge biopsy device was inserted through the trocar needle and advanced into the mass. A total of 2 cores were performed. The specimens were placed in formalin and sent to pathology. Next, a 22-gauge Chiba needle was inserted through the trocar needle and advanced into the lesion. A fine-needle aspirate was performed and sent for cytology. A total of 10 mL of nonclotted blood was obtained from the patient's IV by the nursing staff. A blood patch was then administered through the trocar needle. The needle was removed. A dry dressing was applied and secured with Tegaderm. A limited postprocedure CT of the chest was performed, which did not demonstrate any pneumothorax or hemothorax. There were no immediate complications. The patient was stable after the procedure and was transferred to the post anesthesia care unit. The procedure was done under moderate sedation with a dedicated nurse for monitoring of vital signs. CT/CT biopsy lung RT Impression: CT-guided core biopsy and fine-needle aspiration of the right upper lobe groundglass nodule. This procedure was performed by Sin Dior PA-C and supervised by Dr. Morillo.
[2023-12-29 09:39] LABS: MANUAL DIFF FLAG NO
[2023-12-29 09:45] LABS: Basophils Absolute Auto 0.1 X10*3/uL (0.0-0.2); Basophils Percent Auto 0.8 % (0-2); Eosinophils Absolute Auto 0.3 X10*3/uL (0.0-0.4); Eosinophils Percent Auto 2.9 % (0-4); Hematocrit 36.7 % (37.0-47.0); Hemoglobin 12.6 g/dl (12.0-16.0); Imm Gran Abs Auto 0.04 X10*3/uL (0.00-0.03); Imm Gran Pct Auto 0.4 % (0.0-0.4); Lymphocytes Absolute Auto 2.3 X10*3/uL (1.2-4.9); Lymphocytes Percent Auto 22.2 % (20-40); Mean Corpuscular HGB Conc 34.3 g/dl (31.0-35.0); Mean Corpuscular Hemoglobin 32.9 pg (27.0-33.0); Mean Corpuscular Volume 95.8 fL (80.0-98.0); Mean Platelet Volume 9.1 fL (9.4-12.3); Monocytes Absolute Auto 0.7 X10*3/uL (0.1-1.2); Monocytes Percent Auto 6.9 % (2-11); Neutrophils Absolute Auto 6.8 x10*3/uL (2.0-8.3); Neutrophils Percent Auto 66.8 % (45-73); Platelet Count 330 X10*3/uL (160-400); Red Blood Count 3.83 X10*6/uL (4.20-5.50); Red Cell Distribution Width 12.5 % (11.0-16.0); White Blood Count 10.2 X10*3/uL (4.8-10.8)
[2023-12-29 09:50] LABS: INTERNATIONAL NORM RATIO 0.9 (0.9-1.1); Prothrombin Time 10.8 SEC (11.1-13.3)
[2023-12-29 09:52] LABS: Partial Thromboplastin Time 28.7 SEC (26.0-36.8)
--- NOTE | 2023-12-29 10:35 | MHC.SHP ---
Pre-Procedural Eval Section A - 24 Hr Update-Section A only Date of Service: 12/29/23 Section B - Complete if H&P > 30 days Chief Complaint: RIGHT UPPER LOBE PULMONARY NODULE-ABD CT Details of Present Illness: 68 y/o female with an enlarging RUL ground glass opacity. Thoracic surgery requests a biopsy. Relevant Family History (Specify if Yes): No Relevant Social History: Tobacco Use Present Medications: see Short Stay Collaborative assessment Medical History: Significant History History of Previous Operations: No relevant previous surgery Allergies: Allergies Allergy/AdvReac Type Severity Reaction Status Date / Time celecoxib AdvReac Mild dry mouth Verified 12/29/23 09:30 , feels weak /sluggish Review of Systems Sugical H&P ROS: Negative: Constitution, Cardiovascular and Respiratory Exam Surgical H&P Exam: Normal: Heart, Normal: Lungs, Normal: Skin and Normal: Neurological Plan 68 y/o female with an enlarging RUL lung nodule -CT right lung biopsy Time Spent With Patient Time: Total time managing care of this patient today ____ minutes.
== END 2023-12-29 13:28 | disposition home or self-care (01) ==
PROVIDERS: Physician Assistant Surgical; Radiology Vascular & Interventional Radiology; PCP Internal Medicine; Visit Provider Surgery
DX: R91.8 Other nonspecific abnormal finding of lung field (principal); R91.1 Solitary pulmonary nodule; J84.09 Other alveolar and parieto-alveolar conditions; I65.23 Occlusion and stenosis of bilateral carotid arteries; I10 Essential (primary) hypertension; R73.01 Impaired fasting glucose; Z79.82 Long term (current) use of aspirin; Z79.899 Other long term (current) drug therapy; F17.210 Nicotine dependence, cigarettes, uncomplicated; Z88.8 Allergy status to other drugs, medicaments and biological substances
CPT/HCPCS: 10009; 32408; 36415; 71045; 85025; 85610; 85730; 88173; 88305; 99152; 99153; J2250; J2310; J3010

== ENCOUNTER → 2023-12-29 09:59 | Outpatient (BNV) | payer MEDICARE, OTHER, SELFPAY | PROVIDERS: PCP Internal Medicine; Visit Provider Physician Assistant Surgical | DX: R91.1 Solitary pulmonary nodule (principal); R91.8 Other nonspecific abnormal finding of lung field | CPT/HCPCS: 10009; 32408; 99152 ==

== ENCOUNTER 2024-01-05 10:52 | Outpatient (AMB) | payer MEDICARE, OTHER, SELFPAY ==
[2024-01-05 10:55] VITALS: BP 133/60; PULSE 77
--- NOTE | 2024-01-05 10:55 | MHC.OFFVIS ---
Vital Signs 01/05/24 10:55 Weight 113 lb BP 133/60 Blood Pressure Location Rt brachial Position Sitting Pulse 77 Intake Visit Reasons: s/p PET scan on 12/15/23 Intake Note: Patient is seen in office for PET and CT biopsy results, following abnormal finding of the right lung. Pt c/o: no concerns. Reports bx site healing well. PET:12/15/23 CTbx:12/29/23 Front Office Associate Required: No Accompanied by: Spouse Allergies celecoxib Adverse Reaction (Mild, Verified 01/05/24 10:56) dry mouth , feels weak /sluggish HPI Comments Details: Patient presents with the . She has discontinued smoking for the last week and a half. I encouraged her to continue this. The meantime, pathology of right upper lobe lung process demonstrated ?atypical? cells. This in combination with the smoking history, CT scan finding of an enlarging lesion, and positive PET scan are concerning nonetheless for a neoplastic process. [facility] Medical History Impaired fasting glucose Carotid stenosis, bilateral Nicotine dependence, cigarettes, uncomplicated Essential hypertension Pulmonary nodule Intermittent left-sided chest pain Uncontrolled hypertension Emphysema lung Osteopenia of left femoral neck Insomnia Lumbar degenerative disc disease Surgical History Abnormal CT lung screening Hx of colonoscopy History of tonsillectomy History of tubal ligation Family History Father HTN (hypertension) Cancer of prostate Hyperlipidemia Mother HTN (hypertension) Colon cancer Breast cancer Lung cancer Maternal Grandmother No problems noted. Maternal Grandfather Lung cancer Paternal Grandmother No problems noted. Paternal Grandfather Colon cancer Brother No problems noted. Brother No problems noted. Sister No problems noted. Son No problems noted. Social History Housing: House Alcohol intake: current Patient Tobacco Use Status: Current everyday Tobacco user Tobacco use type: Cigarette Cigarette Packs Per Day: 1.5 Cigarettes Per Day: 10 Years Smoked: 23 e-Cigarette/Vaping Use: Never Used Second Hand Smoke Exposure: No service: No Current occupational status: retired Cognitive needs: No Hearing needs: No Vision needs: Yes Physical Exam Vital Signs: Last Vital Signs Pulse 77 01/05/24 10:55 BP 133/60 01/05/24 10:55 Chest Other: Unchanged Assessment & Plan Assessment & Plan (1) Right upper lobe pulmonary nodule: Code(s): R91.1 - Solitary pulmonary nodule Category: Surgical Plan I reviewed with the patient was a therapeutic options which include repeating CT scan in few months time, repeating biopsy, or on-table excision and frozen section with possible lobectomy for this right upper lobe lung lesion. The patient has opted for the latter. This would include a VATS possible open right upper lobe wedge resection for frozen section and possible lobectomy. . PFTs were reviewed and were quite good. Risks, benefits, alternatives of the procedure were extensively reviewed with the patient and her included but not limited to bleeding, infection, recurrence, numbness, pain, scarring and the patient wishes to proceed. All questions answered. Arrangements were made for this. Coding Level of Care Code Est Pt Level 5 (12189) Diagnoses Right upper lobe pulmonary nodule R91.1
== END 2024-01-05 11:06 | disposition home or self-care (01) ==
PROVIDERS: PCP Internal Medicine; Visit Provider Surgery
DX: R91.1 Solitary pulmonary nodule (principal)
CPT/HCPCS: 99214

== ENCOUNTER → 2024-01-05 10:52 | Outpatient (BNVA) | payer MEDICARE, OTHER, SELFPAY | PROVIDERS: PCP Internal Medicine; Visit Provider Surgery | DX: R91.1 Solitary pulmonary nodule (principal); Z87.891 Personal history of nicotine dependence | CPT/HCPCS: 99212 ==

== ENCOUNTER 2024-03-04 07:22 | Inpatient (IN) | payer MEDICARE, OTHER, SELFPAY ==
--- NOTE | 2024-02-23 | ECG_ITS ---
Test Reason : PRE OP Blood Pressure : / mmHG Vent. Rate : 060 BPM Atrial Rate : 060 BPM P-R Int : 122 ms QRS Dur : 090 ms QT Int : 412 ms P-R-T Axes : 070 069 048 degrees QTc Int : 412 ms Normal sinus rhythm Normal ECG No previous ECGs available Referred By: Rosa Kam Electronically Signed By:CASA ENGLISH
[2024-02-23 10:10] VITALS: BP 165/72; PULSE 66; RESP 18; O2SAT 100; BMI 22.3
[2024-02-23 11:43] LABS: Hematocrit 36.2 % (37.0-47.0); Hemoglobin 12.1 g/dl (12.0-16.0); Mean Corpuscular HGB Conc 33.4 g/dl (31.0-35.0); Mean Corpuscular Hemoglobin 31.8 pg (27.0-33.0); Mean Corpuscular Volume 95.3 fL (80.0-98.0); Mean Platelet Volume 8.9 fL (9.4-12.3); Platelet Count 342 X10*3/uL (160-400); Red Cell Distribution Width 12.3 % (11.0-16.0)
[2024-02-23 12:31] LABS: Anion Gap 12 (12-20); Blood Urea Nitrogen 10 mg/dL (9-16); Calcium 9.8 mg/dL (8.4-10.2); Carbon Dioxide 27 mmol/L (22-29); Chloride 106 mmol/L (96-108); Creatinine Clr Calc Pharmacy 45.6; Estimated Glomerular Filt Rate > 60; Glucose Random 100 mg/dL (60-115); Potassium 4.2 mmol/L (3.3-5.1); Sodium 141 mmol/L (135-145)
--- NOTE | 2024-03-03 09:43 | MHC.SHP ---
Pre-Procedural Eval Section A - 24 Hr Update-Section A only Date of Service: 03/04/24 The patient is an INPATIENT: Yes Changes since office visit: No Cold of Flu in the past 2 weeks, No New Medical Problems, No Changes in Medication and No Patient answered all questions Section B - Complete if H&P > 30 days Chief Complaint: Solitary pulmonary nodule Allergies: Allergies Allergy/AdvReac Type Severity Reaction Status Date / Time celecoxib AdvReac Mild dry mouth Verified 01/05/24 10:56 , feels weak /sluggish Review of Systems Sugical H&P ROS: Negative: Constitution, Cardiovascular, Respiratory, Neurological, Psychiatric, Hem-Onc, Allergic/Immunologic, Gastrointestinal, Genitourinary, Musculoskeletal, Integumentary, Endocrine and Eyes/Ears/Nose/Throat Exam Surgical H&P Exam: Normal: HEENT, Normal: Heart, Normal: Lungs, Normal: Extremities, Normal: Abdomen, Normal: Skin and Normal: Neurological Plan I have reviewed the history and physical and performed a pertinent physical examination on my patient. No changes have occurred unless specified. Time Spent With Patient Time: Total time managing care of this patient today ____ minutes.
[2024-03-04] VITALS (19 sets, daily range): BP systolic 115–144; BP diastolic 55–78; PULSE 61–83; RESP 14–20; TEMP 36.2–37.1; O2SAT 91–100; BMI 22.7
--- NOTE | ~2024-03-04 | XR_ITS ---
EXAMINATION: XR CHEST CLINICAL INFORMATION: Follow-up right upper lobe wedge resection COMPARISON: Radiographs 12/29/2023 TECHNIQUE: Frontal view of the chest was obtained. FINDINGS: Postsurgical changes in the right upper lobe with ill-defined density and suture chain. There is a chest tube in place with probable tiny apical pneumothorax. Left basilar atelectasis and trace effusion. XR/XR chest 1V IMPRESSION: 1. Probable tiny right apical pneumothorax with chest tube in place. 2. Left basilar atelectasis and trace effusion. Electronically signed by: Richard Vallejo MD 03/04/2024 01:35 PM EDT
--- NOTE | ~2024-03-04 | XR_ITS ---
EXAMINATION: XR CHEST CLINICAL INFORMATION: VATS right upper wedge resection COMPARISON: 03/05/2024 and selected prior TECHNIQUE: AP portable upright view of the chest was obtained. FINDINGS: Persistent air in the right apical postsurgical space with underlying staple line and chest tube in place. No progressive pneumothorax. Persistent hazy opacity in the right upper lung likely postoperative atelectasis. Attention on follow-up. Stable blunting of left lateral costal phrenic angle. Stable midline heart and mediastinum. Nonobstructive gas pattern. Decreased subcutaneous emphysema right chest wall XR/XR chest 1V IMPRESSION: Stable postsurgical changes at the right apex with small gas collection and opacification of the right upper lobe. Electronically signed by: Anthony Etienne MD 03/06/2024 10:53 AM EDT
--- NOTE | ~2024-03-04 | XR_ITS ---
EXAMINATION: XR CHEST CLINICAL INFORMATION: Follow-up right upper lobe wedge resection COMPARISON: March 08, 2024 TECHNIQUE: Frontal view of the chest was obtained. FINDINGS: Right chest tube redemonstrated with tip at right apex. Similar small right apical pneumothorax. Redemonstration of postsurgical changes right upper hemithorax. Heart size is normal. Trace right pleural effusion. XR/XR chest 1V IMPRESSION: Similar small right apical pneumothorax. Electronically signed by: Yamilet Espinal MD 03/10/2024 08:45 AM EDT
--- NOTE | ~2024-03-04 | XR_ITS ---
EXAMINATION: XR CHEST CLINICAL INFORMATION: Postop right upper lobe wedge resection COMPARISON: Chest x-ray March 06, 2024 TECHNIQUE: Frontal view of the chest was obtained. FINDINGS: Cardiac silhouette is normal in size. The lungs are well aerated. Stable positioning of right-sided chest tube. Postsurgical changes of the right lung apex. Stable small right apical pneumothorax. The left lung is unremarkable. XR/XR chest 1V IMPRESSION: Stable small right apical pneumothorax. Electronically signed by: Jordi Davis MD 03/07/2024 07:19 AM EDT
--- NOTE | ~2024-03-04 | XR_ITS ---
EXAMINATION: XR CHEST CLINICAL INFORMATION: Follow up VATS right upper lobe wedge resection. COMPARISON: March 04, 2024. TECHNIQUE: Upright portable AP view of the chest was obtained. FINDINGS: The tip of a large bore right chest tube projects over the right apex. Left apical surgical chain sutures and airspace disease. Approximately 5% right apical pneumothorax, similar to possibly slightly increased in size compared with one day prior. Question minimal left basilar fibrotic streak and/or atelectasis, similar compared with one day prior. The cardiac silhouette, bones, and soft tissues appear unremarkable. XR/XR chest 1V IMPRESSION: Findings as above. Electronically signed by: Felipe Wyatt MD 03/05/2024 02:02 PM EDT RP
--- NOTE | ~2024-03-04 | XR_ITS ---
EXAMINATION: XR CHEST CLINICAL INFORMATION: Follow-up right upper lobe wedge resection. COMPARISON: 03/07/2024 TECHNIQUE: Frontal view of the chest. FINDINGS: A right chest tube is similar in position. Redemonstration of postsurgical changes right apex. Persistent small right apical pneumothorax. Stable cardiomediastinal silhouette. No significant pleural effusion. XR/XR chest 1V IMPRESSION: Stable small right apical pneumothorax. Electronically signed by: Yamilet Espinal MD 03/08/2024 08:37 AM EDT
--- NOTE | 2024-03-04 07:28 | PHA.MEDREC ---
Pharmacy Consult ? Medication Reconciliation Pharmacy has completed the medication reconciliation. Reviewed med rec done by nursing; matched claim history + added OTC medications
[2024-03-04] MEDS: Lactated Ringers 1,000 ML 100 ML IVCONT ×2 (07:44→17:52)
--- NOTE | 2024-03-04 08:25 | HO.ANESPROP2 ---
Documented by User: Rosa Kam NP 03/02/24 14:38 HPI - Anesthesia Eval Consult details Narrative: 68yo F for Right Thoracoscopy w/Video Assist,possible OPEN,with Right Upper Lobe Wedge Resection,possible Lobectomy, 03/04/24 No recent illness No CP/SOB with horseback riding Carotid stenosis: 0-49% bilat per 2023 routine scan Smoker: Mostly quit PENDING SALE TO [facility] Active Problems Active Problems: All Active Problems (Updated 02/23/24 @ 09:57 by Galina Webb RN) Right upper lobe pulmonary nodule (Acute) Abnormal CT lung screening (Acute) Impaired fasting glucose (Acute) Carotid stenosis, bilateral (Acute) Nicotine dependence, cigarettes, uncomplicated (Acute) Essential hypertension (Acute) Pulmonary nodule (Acute) Emphysema lung (Acute) Osteopenia of left femoral neck (Acute) Insomnia (Acute) Lumbar degenerative disc disease (Acute) Past Medical History Medical History (Updated 02/23/24 @ 09:57 by Galina Webb RN) Arthritis Back pain Mild emphysema Elevated cholesterol Murmur Impaired fasting glucose Carotid stenosis, bilateral Nicotine dependence, cigarettes, uncomplicated Essential hypertension Pulmonary nodule Intermittent left-sided chest pain Uncontrolled hypertension Emphysema lung Osteopenia of left femoral neck Insomnia Lumbar degenerative disc disease Family History Family History Father HTN (hypertension) Cancer of prostate Hyperlipidemia Mother HTN (hypertension) Colon cancer Breast cancer Lung cancer Maternal Grandmother No problems noted. Maternal Grandfather Lung cancer Paternal Grandmother No problems noted. Paternal Grandfather Colon cancer Brother No problems noted. Brother No problems noted. Sister No problems noted. Son No problems noted. Family history of problems with anesthesia: No Surgical History Surgical History Abnormal CT lung screening Hx of colonoscopy History of tonsillectomy History of tubal ligation History of Problems with Anesthesia: No Social History Social History Housing: House Are you a primary resident care supervisor to a significant other at home: No Do you presently have visiting nurse or other home services: No Alcohol intake: current Alcohol intake frequency: a few times a month Patient Tobacco Use Status: Former Tobacco user Tobacco use type: Cigarette Cigarette Packs Per Day: 1.5 Cigarettes Per Day: 10 Years Smoked: 23 e-Cigarette/Vaping Use: Never Used Second Hand Smoke Exposure: No Use of substances other than those prescribed or required for medical reasons: No Have you been hit, kicked, punched, or otherwise hurt by someone within the past year? If so, by whom?: No Are you DNR?: No Advance Directives: No Advance Directives Information Provided: No Advance Directives on File: No Recently lost weight without trying: No Eating poorly because of decreased appetite: No Nutrition Risks: No Nutritional Risk Patient : No : No Poor oral hygiene: Yes (two loose lower front teeth, one right lower broken) service: No Current occupational status: retired Cognitive needs: No Hearing needs: No Vision needs: Yes Meds Allergies Allergy/AdvReac Type Severity Reaction Status Date / Time celecoxib AdvReac Mild dry mouth Verified 01/05/24 10:56 , feels weak /sluggish Home Medications ?Medication ?Instructions ?Recorded ?Confirmed ?Last Taken ?Type aspirin 81 mg tablet,delayed 81 mg PO DAILY 05/31/20 02/23/24 02/26/24 History release (Adult Aspirin Regimen) ascorbic acid (vitamin C) 1,000 mg 500 mg PO DAILY 06/19/23 02/23/24 03/02/24 History tablet diclofenac sodium 1 % topical gel 2 g topical DAILY PRN Pain 06/19/23 02/23/24 03/03/24 History (Arthritis Pain (diclofenac)) metoprolol succinate 25 mg 25 mg PO BEDTIME 02/23/24 02/23/24 03/03/24 History tablet,extended release 24 hr acetaminophen 500 mg tablet 500 mg PO Q6-8H PRN Pain 03/04/24 03/04/24 03/03/24 History cholecalciferol (vitamin D3) 50 100 mcg PO DAILY 03/04/24 03/04/24 03/03/24 History mcg (2,000 unit) tablet Exam Height,Weight and Vital Signs: Height 5 ft Weight 51.71 kg Last Vital Signs Pulse 66 02/23/24 10:10 Resp 18 02/23/24 10:10 BP 165/72 H 02/23/24 10:10 Pulse Ox 100 02/23/24 10:10 O2 Del Method Room Air 02/23/24 10:10 Pertinent Lab Results Pertinent Lab Results: Lab Results 02/23/24 02/23/24 Range/Units 11:00 11:09 WBC 9.0 (4.8-10.8) X10*3/uL RBC 3.80 L (4.20-5.50) X10*6/uL Hgb 12.1 (12.0-16.0) g/dl Hct 36.2 L (37.0-47.0) % MCV 95.3 (80.0-98.0) fL MCH 31.8 (27.0-33.0) pg MCHC 33.4 (31.0-35.0) g/dl RDW 12.3 (11.0-16.0) % Plt Count 342 (160-400) X10*3/uL MPV 8.9 L (9.4-12.3) fL Absolute Nucleated RBC 0.000 (0.0-0.012) X10*3/uL Nucleated RBC % (auto) 0.0 (0.0-0.2) /100WBC Sodium 141 (135-145) mmol/L Potassium 4.2 (3.3-5.1) mmol/L Chloride 106 (96-108) mmol/L Carbon Dioxide 27 (22-29) mmol/L Anion Gap 12 (12-20) BUN 10 (9-16) mg/dL Creatinine 0.87 (0.5-1.4) mg/dL Estim Creat Clear Calc 45.6 Estimated GFR > 60 Random Glucose 100 (60-115) mg/dL Calcium 9.8 (8.4-10.2) mg/dL Blood Type A Positive Antibody Screen NEGATIVE Narrative Narrative: EKG 02/2024 Vent. Rate : 060 BPM Atrial Rate : 060 BPM P-R Int : 122 ms QRS Dur : 090 ms QT Int : 412 ms P-R-T Axes : 070 069 048 degrees QTc Int : 412 ms Normal sinus rhythm Normal ECG No previous ECGs available PFT 12/2023 Flows: FEV1: 119 % of predicted at 2.40 L FVC: 126 % of predicted at 3.23 L FEV1/FVC: 74 % Bronchodilator response: Present in small to medium airways only Volumes: Total lung capacity: 116 % of predicted at 5.05 L Residual volume: 105 % of predicted at 1.69 L Slow vital capacity: 122 % of predicted at 3.35 L Expiratory reserve volume: 193 % of predicted at 1.22 L Diffusion capacity: Mildly decreased Impression: No obstructive or restrictive ventilatory defect. Bronchodilator response present in small to medium airways only. Decreased diffusion capacity suggests emphysema. US carotid duplex BI 07/2023 IMPRESSION: 1. RIGHT: Minimal, non-hemodynamically significant stenosis of the proximal right internal carotid artery corresponding to a 0-49% stenosis by velocity criteria. 2. LEFT: Minimal, non-hemodynamically significant stenosis of the proximal left internal carotid artery corresponding to a 0-49% stenosis by velocity criteria. ECHO 07/2023 Conclusions: - The left ventricular systolic function is normal. The calculated ejection fraction is 68% by biplane method. - No obvious valvular pathology seen on this study. Stress 06/2023 Protocol: SHOLA Max HR: 133 BPM 85% of Pred: 155 BPM Max BP: 170/030 mmHG Max Work Load: 7.0 METS Exercise stress test exercise 5 min 34 sec of Shola protocol achjieving 85% MPHR, without anginal symptoms, with asymptomatic isolated PVCs, with max BP 170/30 at 2 min recovery, without EKG changes. Test reviewed with Dr. Wong. Airway Mallampati Class: II TM Dist: >3cm Neck ROM: Full Loose/Missing/Broken Teeth: Yes (24&25 slight loose, Right lower molar broken, #8 chipped) Heart: RRR Lungs: CTAB Assessment and Plan Assessment Anesthesia Assessment: Anesthesia Plan Discussed, Smoking Cess. Discussed and PAT Visit Final Anesthetic Review Family History of Problems with Anesthesia: No History of Problems with Anesthesia: No Documented by User: Maliha Brunner DO 03/04/24 08:28 PENDING SALE TO [facility] Past Medical History Medical History (Updated 02/23/24 @ 09:57 by Galina Webb RN) Arthritis Back pain Mild emphysema Elevated cholesterol Murmur Impaired fasting glucose Carotid stenosis, bilateral Nicotine dependence, cigarettes, uncomplicated Essential hypertension Pulmonary nodule Intermittent left-sided chest pain Uncontrolled hypertension Emphysema lung Osteopenia of left femoral neck Insomnia Lumbar degenerative disc disease Family History Family History Father HTN (hypertension) Cancer of prostate Hyperlipidemia Mother HTN (hypertension) Colon cancer Breast cancer Lung cancer Maternal Grandmother No problems noted. Maternal Grandfather Lung cancer Paternal Grandmother No problems noted. Paternal Grandfather Colon cancer Brother No problems noted. Brother No problems noted. Sister No problems noted. Son No problems noted. Family history of problems with anesthesia: No Surgical History Surgical History Abnormal CT lung screening Hx of colonoscopy History of tonsillectomy History of tubal ligation History of Problems with Anesthesia: No Social History Social History Housing: House Are you a primary resident care supervisor to a significant other at home: No Do you presently have visiting nurse or other home services: No Alcohol intake: current Alcohol intake frequency: a few times a month Patient Tobacco Use Status: Former Tobacco user Tobacco use type: Cigarette Cigarette Packs Per Day: 1.5 Cigarettes Per Day: 10 Years Smoked: 23 e-Cigarette/Vaping Use: Never Used Second Hand Smoke Exposure: No Use of substances other than those prescribed or required for medical reasons: No Have you been hit, kicked, punched, or otherwise hurt by someone within the past year? If so, by whom?: No Are you DNR?: No Advance Directives: No Advance Directives Information Provided: No Advance Directives on File: No Recently lost weight without trying: No Eating poorly because of decreased appetite: No Nutrition Risks: No Nutritional Risk Patient : No : No Poor oral hygiene: Yes (two loose lower front teeth, one right lower broken) service: No Current occupational status: retired Cognitive needs: No Hearing needs: No Vision needs: Yes Meds Allergies Allergy/AdvReac Type Severity Reaction Status Date / Time celecoxib AdvReac Mild dry mouth Verified 01/05/24 10:56 , feels weak /sluggish Home Medications ?Medication ?Instructions ?Recorded ?Confirmed ?Last Taken ?Type aspirin 81 mg tablet,delayed 81 mg PO DAILY 05/31/20 02/23/24 02/26/24 History release (Adult Aspirin Regimen) ascorbic acid (vitamin C) 1,000 mg 500 mg PO DAILY 06/19/23 02/23/24 03/02/24 History tablet diclofenac sodium 1 % topical gel 2 g topical DAILY PRN Pain 06/19/23 02/23/24 03/03/24 History (Arthritis Pain (diclofenac)) metoprolol succinate 25 mg 25 mg PO BEDTIME 02/23/24 02/23/24 03/03/24 History tablet,extended release 24 hr acetaminophen 500 mg tablet 500 mg PO Q6-8H PRN Pain 03/04/24 03/04/24 03/03/24 History cholecalciferol (vitamin D3) 50 100 mcg PO DAILY 03/04/24 03/04/24 03/03/24 History mcg (2,000 unit) tablet Exam Exam Date and Time: 03/04/24 0825 Airway Mallampati Class: II TM Dist: >3cm Neck ROM: Full Loose/Missing/Broken Teeth: Yes (poor dentition - 24&25 slight loose, Right lower molar broken, #8 chipped) Heart: S1S2 Assessment and Plan Assessment Anesthesia Assessment: Anesthesia Plan Discussed and Chart Reviewed Final Anesthetic Review Family History of Problems with Anesthesia: No History of Problems with Anesthesia: No NPO: Yes ASA Class: III Final Preanesthetic Review: No Changes in Pt Med Stat, Meds/Allgs Chart Reviewed, Consent Obtained/Reviewed and Anes Risks/Benef Reviewed Patient Risk: Intermediate Procedure Risk: Intermediate Anesthetic Plan Anesthetic Plan: GA and Agree w/ Assess. and Plan Disposition: Standard PACU
--- NOTE | 2024-03-04 10:56 | W.PM.OPN ---
Operative Note Operative Note Date of Service: 03/04/24 Narrative: Preop diagnosis; suspicious right upper lobe lung lesion x2 Postop diagnosis: [] The same Procedure [] bronchoscopy, vats right upper lobe wedge x2, intercostal nerve block Surgeon: [] [employer] Demonstrator: [] Manuel Calvillo Type of Anesthesia: [] Double-lumen general Indication for surgery: [] Bronchoscopy was used to assist anesthesia and placement of a double-lumen tube. Also used to assess airway. No gross endoluminal pathology demonstrated. Intraoperative findings demonstrated 2 areas of cicatrization/scarring of the upper lobe which had been previously biopsied by IR and demonstrated atypical cells. Combination of this with the patient's significant smoking history and progression of the lesions on sequential CT scans prompted the above-mentioned procedure. No other gross intrathoracic pathology demonstrated. Frozen section demonstrated these to be benign lesions Findings: [] Patient brought to the operating room, placed on operative table supine position, after an adequate level of double-lumen general anesthesia was induced, bronchoscopy was performed with findings as noted above. Patient was then placed in the left lateral decubitus position with the right chest was prepped and draped in usual sterile fashion. Using anterior and posterior 6th intercostal space axillary line ports and an axillary working access incision 4 cm in the 4th interspace with wound protector placed, findings were as noted. Right upper lobe lesions x2 underwent sequential SHYLA stapling and sent to pathology for frozen section which were found to demonstrate no neoplasia just chronic inflammatory changes/benign. Chest cavity was filled saline and remaining lung re-expanded with minimal air leak from the suture line. Through the anterior port, 24 Korean chest tube was placed and secured the skin using 0 silk suture. Wounds were closed in the following manner; port sites were closed using deep followed by dermal interrupted 2-0 and 3-0 Vicryl sutures respectively. Access incision had its deep muscular layer closed using running 0 Vicryl suture followed by deep dermal running 2-0 Vicryl suture followed by interrupted inverted dermal 3-0 Vicryl sutures. Each wound/incision underwent intercostal nerve block using Exparel. Chest tube was connected to Pleur-evac and lung re-expanded with minimal air leak demonstrated. Steri-Strips and sterile dressings were applied. Sponge, needle, and instrument counts were reported correct. Patient tolerated the procedure well and emerged from anesthesia stable condition. Postprocedure x-ray pending. EBL minimal
[2024-03-04] MEDS: HYDROmorphone HCl 0.5 MG/0.5 ML SYRINGE IVPUSH ×2 (11:35→12:31)
[2024-03-04] MEDS: ondansetron HCL 4 MG/2 ML VIAL IVPUSH (14:47)
[2024-03-04] MEDS: Acetaminophen 1,000 MG/100 ML PIGGYBACK 400 MG IV ×2 (16:13→22:48)
[2024-03-04] MEDS: Metoclopramide HCl 10 MG/2 ML VIAL IVPUSH (17:36)
[2024-03-04] MEDS: Morphine Sulfate 4 MG/ML CARTRIDGE IVPUSH (17:37)
[2024-03-04] MEDS: Docusate Sodium 100 MG CAPSULE PO (19:59)
[2024-03-04] MEDS: Metoprolol Succinate ER 25 MG TAB.ER.24H PO (19:59)
[2024-03-04] MEDS: Atorvastatin Calcium 20 MG TABLET PO (19:59)
[2024-03-04] MEDS: oxyCODONE HCl Immed Release 5 MG TABLET PO (20:00)
[2024-03-04] MEDS: 0.9 % Sodium Chloride Flush 3 ML SYRINGE IVFLUSH (20:02)
[2024-03-05] MEDS: oxyCODONE HCl Immed Release 5 MG TABLET PO ×3 (00:04→20:47)
[2024-03-05] MEDS: Metoclopramide HCl 10 MG/2 ML VIAL IVPUSH ×2 (00:06→09:47)
[2024-03-05] MEDS: Acetaminophen 1,000 MG/100 ML PIGGYBACK 400 MG IV ×4 (03:07→21:37)
[2024-03-05] MEDS: Lactated Ringers 1,000 ML 100 ML IVCONT (03:11)
[2024-03-05 03:22] VITALS: BP 128/70; PULSE 70; RESP 16; TEMP 36.9; O2SAT 94
--- NOTE | 2024-03-05 06:16 | PC.NURSE ---
Pt Aox4, pleasant, able to make needs known. Reporting pain in R chest tube area, dsg CDI. Pt reports she does not like how the morphine makes her feel and requested the oxycodone in it's place. Documented in JUL. Werner catheter in place, patent, draining CYU. Call lawton within reach, bed alarm on.
[2024-03-05 06:44] LABS: MANUAL DIFF FLAG NO
[2024-03-05 07:00] LABS: Basophils Percent Auto 0.2 % (0-2); Hemoglobin 9.6 g/dl (12.0-16.0); Imm Gran Abs Auto 0.19 X10*3/uL (0.00-0.03); Imm Gran Pct Auto 0.8 % (0.0-0.4); Lymphocytes Absolute Auto 1.7 X10*3/uL (1.2-4.9); Lymphocytes Percent Auto 7.5 % (20-40); Mean Corpuscular HGB Conc 34.3 g/dl (31.0-35.0); Mean Corpuscular Hemoglobin 32.1 pg (27.0-33.0); Mean Corpuscular Volume 93.6 fL (80.0-98.0); Mean Platelet Volume 9.2 fL (9.4-12.3); Monocytes Absolute Auto 1.4 X10*3/uL (0.1-1.2); Monocytes Percent Auto 6.1 % (2-11); Neutrophils Absolute Auto 19.8 x10*3/uL (2.0-8.3); Neutrophils Percent Auto 85.4 % (45-73); Platelet Count 292 X10*3/uL (160-400); Red Blood Count 2.99 X10*6/uL (4.20-5.50); Red Cell Distribution Width 12.3 % (11.0-16.0)
--- NOTE | 2024-03-05 07:12 | HO.STUDPN_ITS ---
Subjective Subjective Date of Service: 03/05/24 <[facility] - Last Filed: 03/05/24 08:42> 03/05/24 <Senait Jackson PA-C - Last Filed: 03/05/24 09:02> 03/05/24 <Jordan Trejo MD - Last Filed: 03/05/24 10:02> Interval History: Pt reports that she is having 6-7/10 pain near procedure site. Pt reports pain with inhalation and productive cough. Reports that she has nausea with morphine and dilaudid and that oxycodin makes her less nauseas. Pt is also requesting stool softener to prevent constipation. Pt is passing gas, last bm was yesterday mornign before hte procedure. Pt vomtied after procedure yesterday (nonbloody, teague/brown with black spots.) Pt is not ambulating currently. <[facility] - Last Filed: 03/05/24 08:42> Constitutional fatigue and lightheadedness, no fever or chills <[facility] - Last Filed: 03/05/24 08:42> Cardiovascular No angina, no palpitations <[facility] - Last Filed: 03/05/24 08:42> Respiratory see hpi, no wheeze <[facility] - Last Filed: 03/05/24 08:42> Gastrointestinal loss of appetite <[facility] - Last Filed: 03/05/24 08:42> Genitourinary no burning with urination <[facility] - Last Filed: 03/05/24 08:42> Integumentary/Breasts no rash. <[facility] - Last Filed: 03/05/24 08:42> Neurologic no tingling or weakness <[facility] - Last Filed: 03/05/24 08:42> Psychiatric a little sweating(fan is helping) <[facility] - Last Filed: 03/05/24 08:42> Physical Exam 2 Vital Signs: Vital Signs: Last Vital Signs Temp 98.4 F 03/05/24 03:22 Pulse 70 03/05/24 03:22 Resp 16 03/05/24 03:22 BP 128/70 03/05/24 03:22 Pulse Ox 94 10/04/24 03:22 O2 Del Method Nasal Cannula 03/05/24 03:22 O2 Flow Rate 2.5 03/05/24 03:22 BMI result Body Mass Index 22.7 <[facility] Last Filed: 03/05/24 08:42> Const: General: comfortable, no acute distress and alert <[facility] - Last Filed: 03/05/24 08:42> Orientation/consciousness: patient oriented x3 <[facility] - Last Filed: 03/05/24 08:42> Chest: Other: dressings clean and intact chest tube with serosanguineous output, very small air leak <Senait Jackson PA-C - Last Filed: 03/05/24 09:02> Resp: Other: normal respiratory effort, wheezing on anterior auscultation, no wheezing on posterior auscultation <[facility] - Last Filed: 03/05/24 08:42> Cardio: Other: RRR, nl s1 and s1 sounds <[facility] - Last Filed: 03/05/24 08:42> GI: Other: no tenderness on palpation, no distension, bowel sounds present <[facility] Last Filed: 03/05/24 08:42> : Other: Barba cathter in place <[facility] - Last Filed: 03/05/24 08:42> Skin: Other: chest tube intact with tape, no drainage near area <[facility] - Last Filed: 03/05/24 08:42> Neuro: General: patient oriented x3 <[facility] Last Filed: 03/05/24 08:42> Objective Data Active Medications Al Hydroxide/Mg Hydroxide (Magnesium Hydrox/Alum Hydrox 30 Ml Oral.Susp) 30 ml PO Q4H PRN PRN Reason: Heartburn Atorvastatin Calcium (Atorvastatin Calcium 20 Mg Tablet) 20 mg PO BEDTIME [facility] Last Admin: 03/04/24 19:59 Dose: 20 mg Documented By: SETVEN Calcium Carbonate (Calcium Carbonate 750 Mg Tab.Chew) 750 mg PO Q4H PRN PRN Reason: Heartburn Docusate Sodium (Docusate Sodium 100 Mg Capsule) 100 mg PO BID [facility] Last Admin: 03/04/24 19:59 Dose: 100 mg Documented By: STEVEN Heparin Sodium (Porcine) (Heparin Sodium,Porcine 5,000 Unit/Ml Vial) 5,000 unit SUBCUT Q8H NGA Lactated Ringer's (Lr) 1,000 mls @ 100 mls/hr IVCONT .Q10H NGA Last Admin: 03/05/24 03:11 Dose: 100 mls/hr Documented By: STEVEN Acetaminophen (Ofirmev) 1,000 mg in 100 mls @ 400 mls/hr IV Q6H [facility] Last Infusion: 03/05/24 03:32 Dose: Infused Documented By: STEVEN Magnesium Hydroxide (Milk Of Magnesia 30 Ml Oral.Susp) 30 ml PO DAILY PRN PRN Reason: Constipation Melatonin (Melatonin 3 Mg Tablet) 6 mg PO BEDTIME PRN PRN Reason: Insomnia Metoclopramide HCl (Metoclopramide Hcl 10 Mg/2 Ml Vial) 10 mg IVPUSH Q8H PRN PRN Reason: Nausea and Vomiting Last Admin: 03/05/24 00:06 Dose: 10 mg Documented By: STEVEN Metoprolol Succinate (Metoprolol Succinate Er 25 Mg Tab.Er.24h) 25 mg PO BEDTIME NGA; Protocol Last Admin: 03/04/24 19:59 Dose: 25 mg Documented By: STEVEN Morphine Sulfate (Morphine Sulfate 4 Mg/Ml Cartridge) 4 mg IVPUSH Q4H PRN; Protocol PRN Reason: Pain, Severe (Pain Scale 7-10) Last Admin: 03/04/24 17:37 Dose: 4 mg Documented By: MESHA Ondansetron HCl (Ondansetron Hcl 4 Mg/2 Ml Vial) 4 mg IVPUSH Q8H PRN PRN Reason: Nausea and Vomiting Last Admin: 03/04/24 14:47 Dose: 4 mg Documented By: SUHA Oxycodone HCl (Oxycodone Hcl Immed Release 5 Mg Tablet) 5 mg PO Q4H PRN PRN Reason: Pain, Moderate(Pain Scale 4-6) Last Admin: 03/05/24 06:09 Dose: 5 mg Documented By: STEVEN Polyethylene Glycol (Polyethylene Glycol 3350 17 Gm Powd.Pack) 17 gm PO DAILY PRN PRN Reason: Constipation Sodium Chloride (0.9 % Sodium Chloride Flush 3 Ml Syringe) 3 ml IVFLUSH QSHIFT NGA Last Admin: 03/04/24 20:02 Dose: 3 ml Documented By: STEVEN <[facility] - Last Filed: 03/05/24 08:42> Labs CBC & Chem 7: 03/05/24 05:59 03/05/24 05:59 <[facility] - Last Filed: 03/05/24 08:42> Assessment and Plan (1) Right upper lobe pulmonary nodule: Status: Acute <[facility] - Last Filed: 03/05/24 08:42> Assessment and Plan: 68 year old female with right upper lobe solitary pulmonary nodule, 1 day post op right vats right upper lobe wedge . Chest X-ray yesterday post procedure impression showed probable tiny right apical pneumothorax with chest tube in place and left basilar atelectasis and trace effusion. Repeating chest x-ray this morning showed chest tube intact. No air leak. Leukocytosis is present. Continue pain management oxycodone 5 mg po q4h and zofran for nausea.??D/C Barba Cather to encourge ambulation and d/c supplemental o2. It has been atelast 12 hours with chest tube to suction, disconnect suction and leave chest tube to water seal. <[facility] - Last Filed: 03/05/24 08:42> 68 year old female with right upper lobe solitary pulmonary nodule, 1 day post op right vats right upper lobe wedge . Chest X-ray yesterday post procedure impression showed probable tiny right apical pneumothorax with chest tube in place and left basilar atelectasis and trace effusion. Repeating chest x-ray this morning showed chest tube intact. No air leak. Leukocytosis is present. Continue pain management oxycodone 5 mg po q4h and zofran for nausea.??D/C Barba Cather to encourage ambulation and d/c supplemental o2. It has been atelast 12 hours with chest tube to suction, disconnect suction and leave chest tube to water seal. <Senait Jackson PA-C - Last Filed: 03/05/24 09:02> Assessment and Plan: Agree with above assessment and plan. Patient POD #1 s/p bronchoscopy, vats right upper lobe wedge x2, intercostal nerve block. Doing overall well post op. Reports inability to take IV narcotics due to nausea. VSS. On 2L NC. Chest tube intact with very small air leak on exam, CXR this am shows very small apical pneumothorax. Will reassess later today and possibly place chest tube to water seal. Add oxycodone 10mg PO for severe pain. Encouraged Incentive spirometer 10x/hr, OOB to at least chair today. Dc barba. DC IVF. Repeat labs in am, leukocytosis likely reactive. <Senait Jackson PA-C - Last Filed: 03/05/24 09:02> Agree with above assessment and plan. Patient POD #1 s/p bronchoscopy, vats right upper lobe wedge x2, intercostal nerve block. Doing overall well post op. Reports inability to take IV narcotics due to nausea. VSS. On 2L NC. Chest tube intact with very small air leak on exam, CXR this am shows very small apical pneumothorax. Will reassess later today and possibly place chest tube to water seal. Add oxycodone 10mg PO for severe pain. Encouraged Incentive spirometer 10x/hr, OOB to at least chair today. Dc barba. ELENA IVF. Repeat labs in am, leukocytosis likely reactive. As noted above <Jordan Trejo MD - Last Filed: 03/05/24 10:02> Quality Stroke Does the patient have a stroke diagnosis?: No <Senait Jackson PA-C - Last Filed: 03/05/24 09:02> VTE Prior VTE?: No <Senait Jackson PA-C - Last Filed: 03/05/24 09:02> VTE Risk Level:: Surgical - high <Mariama Leon - Last Filed: 03/05/24 08:42> VTE Device Contraindication: N/A - Device Ordered <Mariama Myersd - Last Filed: 03/05/24 08:42> VTE Drug Contraindication: N/A - Med Ordered <Mariama Leon - Last Filed: 03/05/24 08:42>
[2024-03-05 07:19] LABS: Anion Gap 13 (12-20); Blood Urea Nitrogen 11 mg/dL (9-16); Calcium 8.8 mg/dL (8.4-10.2); Carbon Dioxide 21 mmol/L (22-29); Chloride 104 mmol/L (96-108); Creatinine Clr Calc Pharmacy 53.6; Estimated Glomerular Filt Rate > 60; Glucose Random 104 mg/dL (60-115); Potassium 4.2 mmol/L (3.3-5.1); Sodium 134 mmol/L (135-145); White Blood Count 23.2 X10*3/uL (4.8-10.8)
[2024-03-05 08:00] VITALS: BP 124/59; PULSE 67; RESP 20; TEMP 36.3; O2SAT 94
--- NOTE | 2024-03-05 08:00 | HO.POSTANES ---
Post Anesthesia Evaluation Post Anesthesia Evaluation Date of Service: 03/05/24 Vital Signs: Vital Signs Temp Pulse Resp BP Pulse Ox O2 Del Method O2 Flow Rate 03/05/24 03:22 98.4 F 70 16 128/70 94 Nasal Cannula 2.5 03/04/24 23:17 97.4 F 79 16 122/59 L 95 Nasal Cannula 2.5 Anesthesia: General Endotracheal-GETA Mental Status: Awake Nausea/Vomiting: Mild Hydration: Adequate Anesthesia-Related Issues: No Anes. Related Issues Comments: Patient reports post-operative pain; receiving oxycodone because she is unable to tolerate dilaudid or morphine. Care per primary team. Anesthesia team to follow-up as necessary.
--- NOTE | 2024-03-05 08:36 | P.CONHOSP_ITS ---
History of Present Illness Data of Consult Service Date: 03/05/24 Requesting physician: Jordan Trejo Primary Care Provider: Tenisha Neely MD HPI Reason for consult: medical consult s/p bronchoscopy 03/04 68 yo F with a pmhx of impaired glucose, HTN, HLD, bilat carotid artery stenosis, former smoker, emphysema and lumbar DDD, s/p bronchoscopy, VATS, R upper lobe wedge resection x2 for suspicious nodule. frozen sections benign. having pain near surgical site/chest tube on the right and nausea. due for morphine and reglan soon. no abd pain, fever, headache, dizziness. no BM but able to pass gas. barba in place, no concerns currently. Review of Systems 2 Constitutional: Constitutional: Reports difficulty sleeping, Denies fatigue, Denies fever(s) and Denies headache(s) ENT: Denies headache(s) Cardiovascular: Cardiovascular: Denies leg edema and Denies dyspnea Respiratory: Respiratory: Reports cough and Denies dyspnea Gastrointestinal: Gastrointestinal: Denies GI cramping, Denies diarrhea, Reports nausea and Denies vomiting Genitourinary: Comments: barba in place Musculoskeletal: Musculoskeletal: Denies myalgias Integumentary/Breasts: Skin/Breast: Denies rash Neurologic: Denies confusion and Denies headache(s) Psychiatric: Psychiatric: Denies confusion Endocrine: Endocrine: Denies fatigue [facility] Medical History (Updated 03/05/24 @ 08:56 by Allyssa Kay PA-C) Arthritis Back pain Mild emphysema Elevated cholesterol Murmur Impaired fasting glucose Carotid stenosis, bilateral Nicotine dependence, cigarettes, uncomplicated Essential hypertension Pulmonary nodule Intermittent left-sided chest pain Uncontrolled hypertension Emphysema lung Osteopenia of left femoral neck Insomnia Lumbar degenerative disc disease Functional capacity: independent ambulation Family History Father HTN (hypertension) Cancer of prostate Hyperlipidemia Mother HTN (hypertension) Colon cancer Breast cancer Lung cancer Maternal Grandmother No problems noted. Maternal Grandfather Lung cancer Paternal Grandmother No problems noted. Paternal Grandfather Colon cancer Brother No problems noted. Brother No problems noted. Sister No problems noted. Son No problems noted. Surgical History Abnormal CT lung screening Hx of colonoscopy History of tonsillectomy History of tubal ligation Social History Household Members: Spouse Housing: House Are you a primary post acute care nurse to a significant other at home: No Do you presently have visiting nurse or other home services: No Alcohol intake: current Alcohol intake frequency: a few times a month Patient Tobacco Use Status: Former Tobacco user Tobacco use type: Cigarette Cigarette Packs Per Day: 1.5 Cigarettes Per Day: 10 Years Smoked: 40 years e-Cigarette/Vaping Use: Never Used Patient Interested in Nicotine Replacement: No Second Hand Smoke Exposure: No Use of substances other than those prescribed or required for medical reasons: No Currently Displaying Signs/Symptoms of Drug Intoxication Withdrawal: No Any prior treatment program specific to substance use: No Have you been hit, kicked, punched, or otherwise hurt by someone within the past year? If so, by whom?: No Do you feel safe in your current relationship?: No Is there a partner from a previous relationship who is making you feel unsafe now?: No Are you made to feel afraid or neglected: No Are you DNR?: No Advance Directives: No Advance Directives Information Provided: No Advance Directives on File: No Do you have a plan to hurt others: No Plan Recently lost weight without trying: Unsure Eating poorly because of decreased appetite: Yes Nutrition Risks: No Nutritional Risk Patient : No : No Poor oral hygiene: No service: No Current occupational status: retired Cognitive needs: No Hearing needs: No Vision needs: Yes Meds Allergies Allergy/AdvReac Type Severity Reaction Status Date / Time celecoxib AdvReac Mild dry mouth Verified 01/05/24 10:56 , feels weak /sluggish Active Medications: Current Medications Al Hydroxide/Mg Hydroxide (Magnesium Hydrox/Alum Hydrox 30 Ml Oral.Susp) 30 ml PO Q4H PRN PRN Reason: Heartburn Atorvastatin Calcium (Atorvastatin Calcium 20 Mg Tablet) 20 mg PO BEDTIME NGA Last Admin: 03/04/24 19:59 Dose: 20 mg Calcium Carbonate (Calcium Carbonate 750 Mg Tab.Chew) 750 mg PO Q4H PRN PRN Reason: Heartburn Heparin Sodium (Porcine) (Heparin Sodium,Porcine 5,000 Unit/Ml Vial) 5,000 unit SUBCUT Q8H ON [facility] Lactated Ringer's (Lr) 1,000 mls @ 60 mls/hr IVCONT .[id number] ON LICENSE OF [facility] Last Admin: 03/05/24 03:11 Dose: 100 mls/hr Acetaminophen (Ofirmev) 1,000 mg in 100 mls @ 400 mls/hr IV Q6H ON [facility] Last Infusion: 03/05/24 03:32 Dose: Infused Magnesium Hydroxide (Milk Of Magnesia 30 Ml Oral.Susp) 30 ml PO DAILY PRN PRN Reason: Constipation Melatonin (Melatonin 3 Mg Tablet) 6 mg PO BEDTIME PRN PRN Reason: Insomnia Metoclopramide HCl (Metoclopramide Hcl 10 Mg/2 Ml Vial) 10 mg IVPUSH Q8H PRN PRN Reason: Nausea and Vomiting Last Admin: 03/05/24 00:06 Dose: 10 mg Metoprolol Succinate (Metoprolol Succinate Er 25 Mg Tab.Er.24h) 25 mg PO BEDTIME ON [facility]; Protocol Last Admin: 03/04/24 19:59 Dose: 25 mg Ondansetron HCl (Ondansetron Hcl 4 Mg/2 Ml Vial) 4 mg IVPUSH Q8H PRN PRN Reason: Nausea and Vomiting Last Admin: 03/04/24 14:47 Dose: 4 mg Oxycodone HCl (Oxycodone Hcl Immed Release 5 Mg Tablet) 5 mg PO Q4H PRN PRN Reason: Pain, Moderate(Pain Scale 4-6) Last Admin: 03/05/24 06:09 Dose: 5 mg Oxycodone HCl (Oxycodone Hcl Immed Release 5 Mg Tablet) 10 mg PO Q4H PRN PRN Reason: Pain, Severe (Pain Scale 7-10) Polyethylene Glycol (Polyethylene Glycol 3350 17 Gm Powd.Pack) 17 gm PO DAILY PRN PRN Reason: Constipation Senna/Docusate Sodium (Sennosides/Docusate Sodium Tablet) 1 tab PO BID ON LICENSE OF [facility] Sodium Chloride (0.9 % Sodium Chloride Flush 3 Ml Syringe) 3 ml IVFLUSH QSHIFT ON LICENSE OF [facility] Last Admin: 03/04/24 20:02 Dose: 3 ml Home Medications ?Medication ?Instructions ?Recorded ?Confirmed ?Last Taken ?Type aspirin 81 mg tablet,delayed 81 mg PO DAILY 05/31/20 02/23/24 02/26/24 History release (Adult Aspirin Regimen) ascorbic acid (vitamin C) 1,000 mg 500 mg PO DAILY 06/19/23 02/23/24 03/02/24 History tablet diclofenac sodium 1 % topical gel 2 g topical DAILY PRN Pain 06/19/23 02/23/24 03/03/24 History (Arthritis Pain (diclofenac)) metoprolol succinate 25 mg 25 mg PO BEDTIME 02/23/24 02/23/24 03/03/24 History tablet,extended release 24 hr acetaminophen 500 mg tablet 500 mg PO Q6-8H PRN Pain 03/04/24 03/04/24 03/03/24 History cholecalciferol (vitamin D3) 50 100 mcg PO DAILY 03/04/24 03/04/24 03/03/24 History mcg (2,000 unit) tablet Physical Exam 2 Vital Signs and Narrative: Vital Signs: Last Vital Signs Temp 97.4 F 03/05/24 08:00 Pulse 67 03/05/24 08:00 Resp 20 03/05/24 08:00 BP 124/59 L 03/05/24 08:00 Pulse Ox 94 03/05/24 08:00 O2 Del Method Nasal Cannula 03/05/24 08:00 O2 Flow Rate 2 03/05/24 08:00 BMI result Body Mass Index 22.7 General: AOx3, no acute distress Resp: CTA bilaterally, chest tube in place, dressings clean and dry CVS: S1, S2, RRR GI: +BS, NT, no distention Skin: Warm, dry Extremities: No edema Psych: Appropriate affect Const: General: No confusion Orientation/consciousness: No confusion Neuro: General: No confusion Results Labs 03/05/24 05:59 03/05/24 05:59 Labs: Laboratory Results - last 24 hr 03/05/24 05:59 MCV 93.6 MCH 32.1 MCHC 34.3 RDW 12.3 Plt Count 292 MPV 9.2 L Immature Gran % (Auto) 0.8 H Neut % (Auto) 85.4 H Lymph % (Auto) 7.5 L [place] % (Auto) 6.1 Eos % (Auto) 0.0 Baso % (Auto) 0.2 Lymph # (Auto) 1.7 [place] # (Auto) 1.4 H Eos # (Auto) 0.0 Baso # (Auto) 0.0 Abs Immat Gran (auto) 0.19 H Absolute Neuts (auto) 19.8 H Absolute Nucleated RBC 0.000 Nucleated RBC % (auto) 0.0 Anion Gap 13 Estim Creat Clear Calc 53.6 Estimated GFR > 60 Random Glucose 104 Calcium 8.8 D Imaging Radiologist's Impressions: Impressions Chest X-Ray 03/04/24 11:20 IMPRESSION: 1. Probable tiny right apical pneumothorax with chest tube in place. 2. Left basilar atelectasis and trace effusion. Electronically signed by: Richard Vallejo MD 03/04/2024 01:35 PM EDT RP Assessment and Plan (1) Essential hypertension: Status: Acute (2) Carotid stenosis, bilateral: Status: Acute (3) Impaired fasting glucose: Status: Acute (4) Emphysema lung: Qualifiers: Emphysema type: unspecified Qualified Code(s): J43.9 - Emphysema, unspecified Status: Acute (5) Elevated cholesterol: Status: Acute Plan 68 yo F with a pmhx of impaired glucose, HTN, HLD, bilat carotid artery stenosis, former smoker, emphysema and lumbar DDD, s/p bronchoscopy, VATS, R upper lobe wedge resection x2 for suspicious nodule. frozen sections benign. s/p bronchoscopy, VATS, wedge x2 - frozen section benign x2 - has orders for morphine for pain. zofran and reglan for nausea - plan per surgery elevated WBCs (23.2) - likely reactive s/p bronchoscopy impaired glucose - glucose normal on CMP - no home meds or DM dx HTN - continue metoprolol - hold amlodipine and lisinopril given good control with BB HLD - continue atorvastatin Thank you for allowing me to participate in the pt's care. Please contact the medical team if any questions or concerns.
[2024-03-05] MEDS: 0.9 % Sodium Chloride Flush 3 ML SYRINGE IVFLUSH ×2 (09:55→21:58)
[2024-03-05] MEDS: Sennosides/Docusate Sodium TABLET 1 TAB PO ×2 (09:55→20:47)
[2024-03-05] MEDS: oxyCODONE HCl Immed Release 5 MG TABLET 10 MG PO ×2 (10:46→16:17)
--- NOTE | 2024-03-05 11:12 | MHC.CM.PN ---
PT REPORTS SHE LIVES WITH HER AND IS INDEPENDENT WITH CARE SHE HAS NO DME AND NO SERVICES HCP AND MOLST ON FILE PCP: SE[facility] AND [employer] DELIVERED DCP: HOME VIA PRIVATE TRANSPORT
[2024-03-05 11:33] VITALS: BP 136/61; PULSE 70; RESP 20; TEMP 36.4; O2SAT 92
[2024-03-05] MEDS: Heparin Sodium,Porcine 5,000 UNIT/ML VIAL 5000 UNIT SUBCUT ×2 (13:49→18:49)
[2024-03-05 16:00] VITALS: BP 169/74; PULSE 79; RESP 18; TEMP 37.2; O2SAT 94
[2024-03-05] MEDS: Lactated Ringers 1,000 ML 60 ML IVCONT (16:32)
[2024-03-05 20:00] VITALS: PULSE 80; RESP 19; TEMP 37; O2SAT 93
[2024-03-05] MEDS: Atorvastatin Calcium 20 MG TABLET PO (20:48)
[2024-03-05] MEDS: Metoprolol Succinate ER 25 MG TAB.ER.24H PO (20:48)
[2024-03-05] MEDS: amLODIPine Besylate 5 MG TABLET PO (22:53)
[2024-03-06] VITALS (7 sets, daily range): BP systolic 140–162; BP diastolic 64–72; PULSE 65–81; RESP 16–20; TEMP 36.5–37.3; O2SAT 92–97
[2024-03-06] MEDS: oxyCODONE HCl Immed Release 5 MG TABLET PO (02:17)
[2024-03-06] MEDS: Heparin Sodium,Porcine 5,000 UNIT/ML VIAL 5000 UNIT SUBCUT ×3 (02:18→21:37)
[2024-03-06] MEDS: oxyCODONE HCl Immed Release 5 MG TABLET 10 MG PO ×4 (06:45→21:36)
[2024-03-06] MEDS: Metoclopramide HCl 10 MG/2 ML VIAL IVPUSH (06:45)
[2024-03-06 07:13] LABS: MANUAL DIFF FLAG NO
[2024-03-06 07:27] LABS: Basophils Absolute Auto 0.1 X10*3/uL (0.0-0.2); Basophils Percent Auto 0.5 % (0-2); Eosinophils Absolute Auto 0.1 X10*3/uL (0.0-0.4); Eosinophils Percent Auto 0.3 % (0-4); Hematocrit 32.8 % (37.0-47.0); Hemoglobin 11.2 g/dl (12.0-16.0); Imm Gran Abs Auto 0.13 X10*3/uL (0.00-0.03); Imm Gran Pct Auto 0.7 % (0.0-0.4); Lymphocytes Absolute Auto 3.3 X10*3/uL (1.2-4.9); Lymphocytes Percent Auto 18.8 % (20-40); Mean Corpuscular HGB Conc 34.1 g/dl (31.0-35.0); Mean Corpuscular Hemoglobin 32.3 pg (27.0-33.0); Mean Corpuscular Volume 94.5 fL (80.0-98.0); Mean Platelet Volume 9.3 fL (9.4-12.3); Monocytes Absolute Auto 1.2 X10*3/uL (0.1-1.2); Monocytes Percent Auto 6.8 % (2-11); Neutrophils Absolute Auto 12.8 x10*3/uL (2.0-8.3); Neutrophils Percent Auto 72.9 % (45-73); Platelet Count 323 X10*3/uL (160-400); Red Blood Count 3.47 X10*6/uL (4.20-5.50); Red Cell Distribution Width 12.3 % (11.0-16.0); White Blood Count 17.6 X10*3/uL (4.8-10.8)
[2024-03-06] MEDS: amLODIPine Besylate 5 MG TABLET PO (07:28)
[2024-03-06] MEDS: Sennosides/Docusate Sodium TABLET 1 TAB PO ×2 (07:28→21:37)
[2024-03-06] MEDS: lisinopriL 20 MG TABLET PO (07:28)
[2024-03-06] MEDS: 0.9 % Sodium Chloride Flush 3 ML SYRINGE IVFLUSH ×3 (07:30→21:42)
[2024-03-06] MEDS: Acetaminophen 1,000 MG/100 ML PIGGYBACK 400 MG IV ×3 (09:56→21:36)
--- NOTE | 2024-03-06 16:43 | PM.PNTS ---
Subjective Subjective Date of Service: 03/06/24 Interval history: Patient was doing well. Incisional discomfort is improving. She has been out of bed/ambulating. She is doing her incentive spirometer. Chest tube has very small air leak. Pleur-evac minimal output. Physical Exam Vital Signs: Vital Signs: Last Vital Signs Temp 98.2 F 03/06/24 16:00 Pulse 81 03/06/24 16:00 Resp 18 03/06/24 16:00 BP 162/72 H 03/06/24 07:28 Pulse Ox 94 03/06/24 16:00 O2 Del Method Room Air 03/06/24 16:00 O2 Flow Rate 2 03/05/24 08:00 BMI result Body Mass Index 22.7 Chest: Other: All incisions clean dry and intact. Chest x-ray demonstrates full expansion of lung. Procedures Date of Service Date of Service: 03/06/24 Progress Note: A&P Assessment and plan (1) Postop check: Status: Acute Plan Continue current plan of; incentive spirometry, out of bed, diet as tolerated, ambulate. Chest tube was on water seal. Continue this with a.m. chest x-ray. Time Spent With Patient Time: Total time managing care of this patient today ____ minutes. Quality Stroke Does the patient have a stroke diagnosis?: No VTE Prior VTE?: No VTE Risk Level:: Surgical - high VTE Device Contraindication: N/A - Device Ordered VTE Drug Contraindication: N/A - Med Ordered
[2024-03-06] MEDS: polyethylene glycoL 3350 17 GM POWD.PACK PO (17:06)
[2024-03-06] MEDS: Metoprolol Succinate ER 25 MG TAB.ER.24H PO (21:37)
[2024-03-06] MEDS: Atorvastatin Calcium 20 MG TABLET PO (21:37)
[2024-03-07 04:00] VITALS: BP 165/72; PULSE 68; RESP 18; TEMP 36; O2SAT 95
[2024-03-07] MEDS: oxyCODONE HCl Immed Release 5 MG TABLET 10 MG PO ×4 (04:42→18:04)
[2024-03-07 07:46] VITALS: BP 176/78; PULSE 71; RESP 18; TEMP 36.9; O2SAT 98
[2024-03-07] MEDS: amLODIPine Besylate 5 MG TABLET PO (08:30)
[2024-03-07] MEDS: Sennosides/Docusate Sodium TABLET 1 TAB PO ×2 (08:30→21:15)
[2024-03-07] MEDS: lisinopriL 20 MG TABLET PO (08:30)
[2024-03-07] MEDS: polyethylene glycoL 3350 17 GM POWD.PACK PO (08:30)
[2024-03-07] MEDS: 0.9 % Sodium Chloride Flush 3 ML SYRINGE IVFLUSH ×3 (08:33→21:16)
[2024-03-07] MEDS: Heparin Sodium,Porcine 5,000 UNIT/ML VIAL 5000 UNIT SUBCUT ×2 (10:11→18:04)
[2024-03-07] MEDS: Acetaminophen 1,000 MG/100 ML PIGGYBACK 400 MG IV ×3 (10:13→21:14)
[2024-03-07 11:21] VITALS: BP 139/66; PULSE 70; RESP 18; TEMP 36.2; O2SAT 95
--- NOTE | 2024-03-07 13:29 | PM.PNTS ---
Subjective Subjective Date of Service: 03/07/24 Interval history: Aside from incisional discomfort, patient was doing well. She is off O2. She is ambulating with the assistance. She has no respiratory issues or complaints. Patient was tolerating a diet. She had a bowel movement. A.m. chest x-ray demonstrates small apical pneumothorax. Pleur-evac as minimal output with very small air leak. Physical Exam Vital Signs: Vital Signs: Last Vital Signs Temp 97.2 F 03/07/24 11:21 Pulse 70 03/07/24 11:21 Resp 18 03/07/24 11:21 BP 139/66 03/07/24 11:21 Pulse Ox 95 03/07/24 11:21 O2 Del Method Room Air 03/07/24 11:21 O2 Flow Rate 2 03/05/24 08:00 BMI result Body Mass Index 22.7 Chest: Other: All dressings clean dry and intact. Pleur-evac as noted above. Procedures Date of Service Date of Service: 03/07/24 Progress Note: A&P Assessment and plan (1) Postop check: Status: Acute Plan Continue current plan; encourage incentive spirometry, out of bed/ambulate, diet as tolerated. A.m. chest x-ray. Once air leak is healed, for chest tube removal. All questions answered. Time Spent With Patient Time: Total time managing care of this patient today ____ minutes. Quality Stroke Does the patient have a stroke diagnosis?: No VTE Prior VTE?: No VTE Risk Level:: Surgical - high VTE Device Contraindication: N/A - Device Ordered VTE Drug Contraindication: N/A - Med Ordered
[2024-03-07 16:00] VITALS: BP 157/74; PULSE 62; RESP 20; TEMP 36.2; O2SAT 100
[2024-03-07 20:00] VITALS: BP 145/63; PULSE 65; RESP 20; TEMP 36.6; O2SAT 98
[2024-03-07] MEDS: Atorvastatin Calcium 20 MG TABLET PO (21:15)
[2024-03-07] MEDS: Metoprolol Succinate ER 25 MG TAB.ER.24H PO (21:15)
[2024-03-07] MEDS: Metoclopramide HCl 10 MG/2 ML VIAL IVPUSH (21:15)
[2024-03-08] VITALS (7 sets, daily range): BP systolic 128–160; BP diastolic 61–73; PULSE 63–73; RESP 18–20; TEMP 36.1–36.7; O2SAT 96–98
--- NOTE | 2024-03-08 | ECG_ITS ---
Test Reason : STAT Blood Pressure : / mmHG Vent. Rate : 066 BPM Atrial Rate : 066 BPM P-R Int : 128 ms QRS Dur : 068 ms QT Int : 434 ms P-R-T Axes : 068 064 051 degrees QTc Int : 454 ms Sinus rhythm with Premature atrial complexes Otherwise normal ECG When compared with ECG of 23-FEB-2024 11:06, Premature atrial complexes are now Present T wave amplitude has decreased in Lateral leads Referred By: Senait Jackson Electronically Signed By:CASA ENGLISH
[2024-03-08] MEDS: oxyCODONE HCl Immed Release 5 MG TABLET PO ×2 (03:48→14:08)
[2024-03-08] MEDS: Acetaminophen 1,000 MG/100 ML PIGGYBACK 400 MG IV ×4 (03:49→22:42)
[2024-03-08] MEDS: Heparin Sodium,Porcine 5,000 UNIT/ML VIAL 5000 UNIT SUBCUT ×3 (03:49→21:01)
--- NOTE | 2024-03-08 07:07 | HO.STUDPN_ITS ---
Subjective Subjective Date of Service: 03/08/24 <Mariama kevin - Last Filed: 03/08/24 07:48> 03/08/24 <Senait Jackson PA-C - Last Filed: 03/08/24 08:20> 03/08/24 <Jordan Trejo MD - Last Filed: 03/08/24 09:16> Interval History: Pt reports doing better today. No pain with inspiration or when coughing, discomfort still present near surgical site/chest tube especially when ambulating pt feels chest tube being pulled down. Pt has been using incentive spirometer and reports that after using this she feels congestoin and coughs up some mucus. Pt reports decreased coughign and decreased mucus production compared to yesterday. Some wheezing present, however this gets better after coughing. Last BM was yesterday, diarrhea due to stool softeners. Some nasuea, however Reglen medication has been helping. Pt has been ambulating to go to the bathroom, last night she walked around the hospital floor. <[facility] - Last Filed: 03/08/24 07:48> Constitutional Some fatigue, chills (due to feeling cold from hospital temp), no fever < [facility] - Last Filed: 03/08/24 07:48> Cardiovascular no SOB, no palpitations <[facility] - Last Filed: 03/08/24 07:48> Respiratory see HPI <[facility] - Last Filed: 03/08/24 07:48> Gastrointestinal No vomitting <[facility] - Last Filed: 03/08/24 07:48> Genitourinary No dysuria <[facility] - Last Filed: 03/08/24 07:48> Neurologic dizziness(when standing up too quickly), no numbness, no tingling. <[facility] - Last Filed: 03/08/24 07:48> Physical Exam 2 Vital Signs: Vital Signs: Last Vital Signs Temp 96.9 F 03/08/24 00:00 Pulse 71 03/08/24 00:00 Resp 20 03/08/24 00:00 BP 140/67 H 03/08/24 00:00 Pulse Ox 98 03/08/24 00:00 O2 Del Method Room Air 03/08/24 00:00 O2 Flow Rate 2 03/05/24 08:00 BMI result Body Mass Index 22.7 <Mariama kevin - Last Filed: 03/08/24 07:48> Const: General: comfortable and alert [facility] Last Filed: 03/08/24 07:48> Orientation/consciousness: patient oriented x3 [facility] Last Filed: 03/08/24 07:48> Chest: Other: no significant air leak present. Chest tube intact with serosanguinous fluid. incision clean <Senait Jackson PA-C - Last Filed: 03/08/24 08:20> Resp: Other: normal respiratory effort, no wheezing, no airway leak present. Chest tube intact with serosanguinous fluid. <Mariama kevin - Last Filed: 03/08/24 07:48> Other: normal respiratory effort, no wheezing <Senait Jackson PA-C - Last Filed: 03/08/24 08:20> Cardio: Other: RRR, nl S1,S2 [facility] Last Filed: 03/08/24 07:48> GI: Other: slight distension of abdomen, no tenderness on palpation [facility] Last Filed: 03/08/24 07:48> Skin: Other: no rashes <[facility] Last Filed: 03/08/24 07:48> Neuro: General: patient oriented x3 [facility] Last Filed: 03/08/24 07:48> Objective Data Active Medications Al Hydroxide/Mg Hydroxide (Magnesium Hydrox/Alum Hydrox 30 Ml Oral.Susp) 30 ml PO Q4H PRN PRN Reason: Heartburn Amlodipine Besylate (Amlodipine Besylate 5 Mg Tablet) 5 mg PO DAILY NGA; Protocol Last Admin: 03/07/24 08:30 Dose: 5 mg Documented By: ORLY Atorvastatin Calcium (Atorvastatin Calcium 20 Mg Tablet) 20 mg PO BEDTIME NGA Last Admin: 03/07/24 21:15 Dose: 20 mg Documented By: JASWANT Calcium Carbonate (Calcium Carbonate 750 Mg Tab.Chew) 750 mg PO Q4H PRN PRN Reason: Heartburn Heparin Sodium (Porcine) (Heparin Sodium,Porcine 5,000 Unit/Ml Vial) 5,000 unit SUBCUT Q8H [facility] Last Admin: 03/08/24 03:49 Dose: 5,000 unit Documented By: JASWANT Acetaminophen (Ofirmev) 1,000 mg in 100 mls @ 400 mls/hr IV Q6H [facility] Last Infusion: 03/08/24 04:04 Dose: Infused Documented By: JASWANT Lisinopril (Lisinopril 20 Mg Tablet) 20 mg PO DAILY [facility]; Protocol Last Admin: 03/07/24 08:30 Dose: 20 mg Documented By: ORLY Magnesium Hydroxide (Milk Of Magnesia 30 Ml Oral.Susp) 30 ml PO DAILY PRN PRN Reason: Constipation Melatonin (Melatonin 3 Mg Tablet) 6 mg PO BEDTIME PRN PRN Reason: Insomnia Metoclopramide HCl (Metoclopramide Hcl 10 Mg/2 Ml Vial) 10 mg IVPUSH Q8H PRN PRN Reason: Nausea and Vomiting Last Admin: 03/07/24 21:15 Dose: 10 mg Documented By: JASWANT Metoprolol Succinate (Metoprolol Succinate Er 25 Mg Tab.Er.24h) 25 mg PO BEDTIME [facility]; Protocol Last Admin: 03/07/24 21:15 Dose: 25 mg Documented By: JASWANT Ondansetron HCl (Ondansetron Hcl 4 Mg/2 Ml Vial) 4 mg IVPUSH Q8H PRN PRN Reason: Nausea and Vomiting Last Admin: 03/04/24 14:47 Dose: 4 mg Documented By: SUHA Oxycodone HCl (Oxycodone Hcl Immed Release 5 Mg Tablet) 5 mg PO Q4H PRN PRN Reason: Pain, Moderate(Pain Scale 4-6) Last Admin: 03/08/24 03:48 Dose: 5 mg Documented By: JASWANT Oxycodone HCl (Oxycodone Hcl Immed Release 5 Mg Tablet) 10 mg PO Q4H PRN PRN Reason: Pain, Severe (Pain Scale 7-10) Last Admin: 03/07/24 18:04 Dose: 10 mg Documented By: ORLY Polyethylene Glycol (Polyethylene Glycol 3350 17 Gm Powd.Pack) 17 gm PO DAILY PRN PRN Reason: Constipation Last Admin: 03/07/24 08:30 Dose: 17 gm Documented By: ORLY Senna/Docusate Sodium (Sennosides/Docusate Sodium Tablet) 1 tab PO BID [facility] Last Admin: 03/07/24 21:15 Dose: 1 tab Documented By: JASWANT Sodium Chloride (0.9 % Sodium Chloride Flush 3 Ml Syringe) 3 ml IVFLUSH QSHIFT [facility] Last Admin: 03/07/24 21:16 Dose: 3 ml Documented By: JASWANT <Mariama Ahmad - Last Filed: 03/08/24 07:48> Labs CBC & Chem 7: 03/06/24 06:12 03/05/24 05:59 <Mariama Ahmad - Last Filed: 03/08/24 07:48> Assessment and Plan (1) Right upper lobe pulmonary nodule: Status: Acute <Mariama Ahmad - Last Filed: 03/08/24 07:48> Assessment and Plan: 68 year old female with right upper lobe solitary pulmonary nodule, 4 day post op right vats right upper lobe wedge.? Chest X-ray yesterday showed ?Small right apical pneumothorax? Repeat chest x-ray done this morning. Pt is doing well. Chest tube intact with very small air leak. Plan to remove chest tube today. Continue using incentive spiromter. ? <Mariama Ahmad - Last Filed: 03/08/24 07:48> 68 year old female with right upper lobe solitary pulmonary nodule, 4 day post op right vats right upper lobe wedge.? Repeat chest x-ray done this morning. Pt is doing well. Chest tube intact with very small air leak. Plan to remove chest tube today. Continue using incentive spiromter. Agree with above assessment and plan. POD #4 s/p bronchoscopy, vats right upper lobe wedge x2, intercostal nerve block. Doing well post op, ambulating without difficulty, pain controlled, tolerating solid diet and moving bowels. VSS. No respiratory distress, chest tube without significant air leak, VATS incision clean. F/u CXR shows unchanged small apical pneumo. Will remove chest tube today, f/u post procedure film. If status quo, discharge later today. Patient comfortable with plan. <Senait Jackson PA-C - Last Filed: 03/08/24 08:20> 68 year old female with right upper lobe solitary pulmonary nodule, 4 day post op right vats right upper lobe wedge.? Repeat chest x-ray done this morning. Pt is doing well. Chest tube intact with very small air leak. Plan to remove chest tube today. Continue using incentive spiromter. Agree with above assessment and plan. POD #4 s/p bronchoscopy, vats right upper lobe wedge x2, intercostal nerve block. Doing well post op, ambulating without difficulty, pain controlled, tolerating solid diet and moving bowels. VSS. No respiratory distress, chest tube without significant air leak, VATS incision clean. F/u CXR shows unchanged small apical pneumo. Will remove chest tube today, f/u post procedure film. If status quo, discharge later today. Patient comfortable with plan. As noted above <Jordan Trejo MD - Last Filed: 03/08/24 09:16> Quality Stroke Does the patient have a stroke diagnosis?: No <Mariama Ahmad - Last Filed: 03/08/24 07:48> VTE Prior VTE?: No <Mariama Ahmad - Last Filed: 03/08/24 07:48> VTE Risk Level:: Surgical - high <Mariama Ahmad - Last Filed: 03/08/24 07:48> VTE Device Contraindication: N/A - Device Ordered <Mariama Ahmad - Last Filed: 03/08/24 07:48> VTE Drug Contraindication: N/A - Med Ordered <Mariama Ahmad - Last Filed: 03/08/24 07:48>
[2024-03-08] MEDS: Sennosides/Docusate Sodium TABLET 1 TAB PO ×2 (09:45→21:01)
[2024-03-08] MEDS: amLODIPine Besylate 5 MG TABLET PO (09:46)
[2024-03-08] MEDS: lisinopriL 20 MG TABLET PO (09:46)
[2024-03-08] MEDS: 0.9 % Sodium Chloride Flush 3 ML SYRINGE IVFLUSH ×2 (09:51→17:20)
[2024-03-08] MEDS: oxyCODONE HCl Immed Release 5 MG TABLET 10 MG PO ×2 (09:55→21:00)
[2024-03-08 14:01] LABS: Anion Gap 9 (12-20); Blood Urea Nitrogen 7 mg/dL (9-16); Calcium 9.6 mg/dL (8.4-10.2); Carbon Dioxide 29 mmol/L (22-29); Chloride 103 mmol/L (96-108); Creatinine Clr Calc Pharmacy 48.5; Estimated Glomerular Filt Rate > 60; Glucose Random 142 mg/dL (60-115); Phosphorus 4.6 mg/dL (2.7-4.5); Potassium 3.3 mmol/L (3.3-5.1); Sodium 138 mmol/L (135-145)
[2024-03-08] MEDS: Atorvastatin Calcium 20 MG TABLET PO (21:01)
[2024-03-08] MEDS: Metoprolol Succinate ER 25 MG TAB.ER.24H PO (21:01)
[2024-03-09] MEDS: 0.9 % Sodium Chloride Flush 3 ML SYRINGE IVFLUSH ×2 (01:30→08:11)
[2024-03-09 03:44] VITALS: BP 134/64; PULSE 63; RESP 20; TEMP 36; O2SAT 98
[2024-03-09] MEDS: Heparin Sodium,Porcine 5,000 UNIT/ML VIAL 5000 UNIT SUBCUT ×2 (04:19→10:56)
[2024-03-09] MEDS: Acetaminophen 1,000 MG/100 ML PIGGYBACK 400 MG IV ×2 (04:20→10:59)
--- NOTE | 2024-03-09 07:01 | HO.STUDPN_ITS ---
Subjective Subjective Date of Service: 03/09/24 <Mariama angélicamarquez - Last Filed: 03/09/24 07:36> 03/09/24 <Senait Jackson PA-C - Last Filed: 03/09/24 09:09> 03/09/24 <Jordan Trejo MD - Last Filed: 03/09/24 09:27> Review of Systems Pt feels better, had a good night sleep. Decreased bloody mucus production and coughing. Some wheezing, pt feels better after coughing up. Last BM was yesterday, diarrhea. Pt is flatulent, and urinated this morning. No dysuria or burning. Pt is tolerating solid foods well. Some nausea still present, medication is helping. Pt reports that dressing was changed yesterday and pt feels a lot better near the chest tube area. Pt has been using inceptive spirometer and is ambulating when going to the bathroom. Pt denies any vomiting, SOB, palpitations. <[facility] - Last Filed: 03/09/24 07:36> Constitutional no fever, chills (pt reports hospital is cold), some fatigue <[facility] Last Filed: 03/09/24 07:36> Cardiovascular see HPI <[facility] - Last Filed: 03/09/24 07:36> Respiratory no dyspnea, see HPI <[facility] - Last Filed: 03/09/24 07:36> Gastrointestinal see HPI <[facility] - Last Filed: 03/09/24 07:36> Genitourinary see HPI <[facility] - Last Filed: 03/09/24 07:36> Integumentary/Breasts no rashes <[facility] - Last Filed: 03/09/24 07:36> Neurologic dizziness when standing up too quickly, no numbness no tingling <[facility] - Last Filed: 03/09/24 07:36> Physical Exam 2 Vital Signs: Vital Signs: Last Vital Signs Temp 96.8 F 03/09/24 03:44 Pulse 63 03/09/24 03:44 Resp 20 03/09/24 03:44 BP 134/64 03/09/24 03:44 Pulse Ox 98 03/09/24 03:44 O2 Del Method Room Air 03/09/24 03:44 O2 Flow Rate 2 03/05/24 08:00 BMI result Body Mass Index 22.7 <[facility] - Last Filed: 03/09/24 07:36> Const: Other: well appearing, no distress, Alert and oriented x3 <[facility] - Last Filed: 03/09/24 07:36> Chest: Other: chest tube intact with dressing, small airway leak present. <[facility] - Last Filed: 03/09/24 07:36> Resp: Other: normal WOB, no wheezing or rhonchi appreciated. <[facility] - Last Filed: 03/09/24 07:36> Cardio: Other: RRR, nl S1, S2 <[facility] - Last Filed: 03/09/24 07:36> GI: Other: non distended, bowel sounds present, no tenderness on palpation <[facility] - Last Filed: 03/09/24 07:36> Objective Data Active Medications Al Hydroxide/Mg Hydroxide (Magnesium Hydrox/Alum Hydrox 30 Ml Oral.Susp) 30 ml PO Q4H PRN PRN Reason: Heartburn Amlodipine Besylate (Amlodipine Besylate 5 Mg Tablet) 5 mg PO DAILY [facility]; Protocol Last Admin: 03/08/24 09:46 Dose: 5 mg Documented By: YOLANDA Atorvastatin Calcium (Atorvastatin Calcium 20 Mg Tablet) 20 mg PO BEDTIME [facility] Last Admin: 03/08/24 21:01 Dose: 20 mg Documented By: EVERETTE Calcium Carbonate (Calcium Carbonate 750 Mg Tab.Chew) 750 mg PO Q4H PRN PRN Reason: Heartburn Heparin Sodium (Porcine) (Heparin Sodium,Porcine 5,000 Unit/Ml Vial) 5,000 unit SUBCUT Q8H [facility] Last Admin: 03/09/24 04:19 Dose: 5,000 unit Documented By: EVERETTE Acetaminophen (Ofirmev) 1,000 mg in 100 mls @ 400 mls/hr IV Q6H [facility] Last Infusion: 03/09/24 04:54 Dose: Infused Documented By: EVERETTE Lisinopril (Lisinopril 20 Mg Tablet) 20 mg PO DAILY [facility]; Protocol Last Admin: 03/08/24 09:46 Dose: 20 mg Documented By: YOLANDA Magnesium Hydroxide (Milk Of Magnesia 30 Ml Oral.Susp) 30 ml PO DAILY PRN PRN Reason: Constipation Melatonin (Melatonin 3 Mg Tablet) 6 mg PO BEDTIME PRN PRN Reason: Insomnia Metoclopramide HCl (Metoclopramide Hcl 10 Mg/2 Ml Vial) 10 mg IVPUSH Q8H PRN PRN Reason: Nausea and Vomiting Last Admin: 03/07/24 21:15 Dose: 10 mg Documented By: JASWANT Metoprolol Succinate (Metoprolol Succinate Er 25 Mg Tab.Er.24h) 25 mg PO BEDTIME [facility]; Protocol Last Admin: 03/08/24 21:01 Dose: 25 mg Documented By: EVERETTE Ondansetron HCl (Ondansetron Hcl 4 Mg/2 Ml Vial) 4 mg IVPUSH Q8H PRN PRN Reason: Nausea and Vomiting Last Admin: 03/04/24 14:47 Dose: 4 mg Documented By: SUHA Oxycodone HCl (Oxycodone Hcl Immed Release 5 Mg Tablet) 5 mg PO Q4H PRN PRN Reason: Pain, Moderate(Pain Scale 4-6) Last Admin: 03/08/24 14:08 Dose: 5 mg Documented By: YOLANDA Oxycodone HCl (Oxycodone Hcl Immed Release 5 Mg Tablet) 10 mg PO Q4H PRN PRN Reason: Pain, Severe (Pain Scale 7-10) Last Admin: 03/08/24 21:00 Dose: 10 mg Documented By: EVERETTE Polyethylene Glycol (Polyethylene Glycol 3350 17 Gm Powd.Pack) 17 gm PO DAILY PRN PRN Reason: Constipation Last Admin: 03/07/24 08:30 Dose: 17 gm Documented By: ORLY Senna/Docusate Sodium (Sennosides/Docusate Sodium Tablet) 1 tab PO BID [facility] Last Admin: 03/08/24 21:01 Dose: 1 tab Documented By: EVERETTE Sodium Chloride (0.9 % Sodium Chloride Flush 3 Ml Syringe) 3 ml IVFLUSH QSHIFT [facility] Last Admin: 03/09/24 01:30 Dose: 3 ml Documented By: EVERETTE <Mariama Ahmad - Last Filed: 03/09/24 07:36> Labs CBC & Chem 7: 03/06/24 06:12 03/08/24 13:34 <Mariama Ahmad - Last Filed: 03/09/24 07:36> Labs: Laboratory Results - last 24 hr 03/08/24 13:34 Anion Gap 9 L Estim Creat Clear Calc 48.5 Estimated GFR > 60 Random Glucose 142 H Calcium 9.6 D Phosphorus 4.6 H Magnesium 2.0 <Mariama Ahmad - Last Filed: 03/09/24 07:36> Assessment and Plan (1) Right upper lobe pulmonary nodule: Status: Acute <Mariama Ahmad - Last Filed: 03/09/24 07:36> Assessment and Plan: 68 year old female with right upper lobe solitary pulmonary nodule, 5 day post op right vats right upper lobe wedge.?Pt is doing well. Chest tube intact with small airway leak. Chest x-ray yesterday showed stable small right apical pneumothorax. Continue incentive spirometer. Plan to d/c pt with heimlich valve . <[facility]amasa Ramosmad - Last Filed: 03/09/24 07:36> Assessment and Plan: Agree with above assessment and plan. POD #5 s/p bronchoscopy, vats right upper lobe wedge x2, intercostal nerve block. Overall doing well post op however has persistent small air leak with small apical airspace on CXR, ?chest tube not allowing lung to full expand. She is otherwise clinically stable with good pain control, tolerating solid diet, good bowel function. Discussed options which include continued hospital stay while awaiting air leak to resolve or discharge to home with chest tube and heimlich valve in place and VNA services. She would like to go home. Heimlich valve will be applied later today. Patient comfortable with plan, has f/u in office scheduled on 03/16. <Senait Jackson PA-C - Last Filed: 03/09/24 09:09> Quality Stroke Does the patient have a stroke diagnosis?: No <Mariama Ahmad - Last Filed: 03/09/24 07:36> VTE Prior VTE?: No <Mariama Ahmad - Last Filed: 03/09/24 07:36> VTE Risk Level:: Surgical - high <Mariama Ahmad - Last Filed: 03/09/24 07:36> VTE Device Contraindication: N/A - Device Ordered <Mariama Ahmad - Last Filed: 03/09/24 07:36> VTE Drug Contraindication: N/A - Med Ordered <Mariama Ahmad - Last Filed: 03/09/24 07:36>
[2024-03-09 07:34] VITALS: BP 152/68; PULSE 105; RESP 20; TEMP 36.4; O2SAT 96
[2024-03-09 08:12] VITALS: BP 152/68
[2024-03-09] MEDS: Sennosides/Docusate Sodium TABLET 1 TAB PO (08:12)
[2024-03-09] MEDS: oxyCODONE HCl Immed Release 5 MG TABLET 10 MG PO (08:12)
[2024-03-09] MEDS: lisinopriL 20 MG TABLET PO (08:12)
[2024-03-09 08:14] VITALS: BP 152/68
[2024-03-09] MEDS: amLODIPine Besylate 5 MG TABLET PO (08:14)
--- NOTE | 2024-03-09 10:10 | W.MHC.F2F ---
Service Date Service Date: 03/09/24 Encounter Date of encounter: 03/09/24 Reasons for Services Signs and symptoms assessed: Incisional pain, respiratory status, chest tube pleurvac output/air leak Reason for custodial: wound care and postoperative assessment and/or care Homebound: Leaving the home is medically contraindicated at this time without the asist of a device and/or another person due th the listed conditions above and below. Reason homebound: weakness related to hospital stay and unable to drive Homebound supporting statement: Ms. Dunham is s/p VATS right upper wedge resection. She has a persistent air space, small air leak and chest tube was left in place to heimlich valve. Needs chest tube site dressing change every other day. Certification: Based on the above findings, I certify that this patient is confined to the home and needs intermittent custodial care, physical therapy and/or speech therapy, or continues to need occupational therapy. The patient is under my care, and I have initiated the establishment of the plan of care. The patient will be followed by a physician who will periodically review the plan of care. Time Spent With Patient Time: Total time managing care of this patient today ____ minutes.
--- NOTE | 2024-03-09 12:33 | MHC.CM.PN ---
IMM 03/09/24, Pt has been medically cleared for DC. She will go home via private transport and have services from [facility].
--- NOTE | 2024-03-09 13:26 | P.DS_ITS ---
DS: Providers Provider Date of Service: 03/09/24 Date of admission: 03/04/24 07:22 Date of discharge: 03/09/24 Primary care physician: Tenisha Neely MD Attending physician on admission: Jordan Trejo Consults: 03/04/24 14:37 Consult to Hospitalist Routine Comment: Consulting Provider: Hospitalist Reason For Exam: s/p VATS R upper lobe wedge, HTN, hyperlipidemia Attending physician on discharge: Jordan Trejo DS: Diagnosis Discharge Diagnosis (1) Right upper lobe pulmonary nodule: Status: Acute DS: Summary Hospital Course Hospital Course: HPI AT ADMISSION: Patient presents with the . She has discontinued smoking for the last week and a half. I encouraged her to continue this. The meantime, pathology of right upper lobe lung process demonstrated ?atypical? cells. This in combination with the smoking history, CT scan finding of an enlarging lesion, and positive PET scan are concerning nonetheless for a neoplastic process. Therapeutic options were reviewed with the patient including repeating CT scan in few months time, repeating biopsy, or on-table excision and frozen section with possible lobectomy for this right upper lobe lung lesion. The patient has opted for the latter. This would include a VATS possible open right upper lobe wedge resection for frozen section and possible lobectomy. She presents for the planned procedure. HOSPITAL COURSE: On 03/04/24, bronchoscopy, vats right upper lobe wedge x2, intercostal nerve block was performed by Dr. Trejo without immediate compl ication. Intraoperative findings demonstrated 2 areas of cicatrization/scarring of the upper lobe which had been previously biopsied by IR and demonstrated atypical cells. Frozen section demonstrated these to be benign lesions. Chest tube was placed. She tolerated the procedure well and was admitted to the medical/telemetry floor for observation. She had a slow but uncomplicated recovery course. On POD #1, she felt overall well with good pain control. She was clinically appearing well with some serosanguineous drainage from chest tube. Her barba was removed. Her chest tube was placed to water seal. Incentive spirometer was encouraged. Her pleurvac drainage decreased over the next few days. Her activity was increased. She was weaned off oxygen. She had small air leak and small apical air space on CXR that persisted on POD #5. She was otherwise doing well post operatively and was hemodynamically stable and stable from respiratory standpoint. She wanted to go home and her chest tube was therefore placed to heimlich valve with every other day chest tube dressing changes. She felt comfortable with care at home. She was discharged to home on 03/09/24 in stable condition with VNA services. She has a f/u appointment in the office on 03/16/24. Status at Discharge Functional status at discharge: independent ambulation Overall status at discharge: patient is progressing back to baseline Time Attestation Discharge Coordination Time (in mins): 50 Quality: Safe Use of Opioids Does Pt have an Active Cancer Diagnosis on the Problem List?: No Quality: Stroke Does the patient have a stroke diagnosis?: No Physical Exam Vital Signs: Vital Signs: Last Vital Signs Temp 97.6 F 03/09/24 07:34 Pulse 105 H 03/09/24 07:34 Resp 20 03/09/24 07:34 BP 152/68 H 03/09/24 08:14 Pulse Ox 96 03/09/24 07:34 O2 Del Method Room Air 03/09/24 07:34 O2 Flow Rate 2 03/05/24 08:00 BMI result Body Mass Index 22.7 Const: General: comfortable, no acute distress and alert Orientation/consciousness: patient oriented x3 Chest: Other: VATS incision site clean appearing chest tube in place right lateral chest, small air leak, placed to heimlich valve Resp: Effort & Inspection: normal respiratory effort, Actively coughing, respiratory effort not decreased, not tachypneic and no tracheal deviation Skin: General skin exam: no rashes or lesions noted Neuro: General: patient oriented x3 and moves all extremities DS: Data Data Completed and Pending Completed studies during hospitalization [Text1]: 03/04/24 09:40 Surgical [PTH] Stat A. Lung, right upper lobe #1, wedge resection: - Atypical adenomatous hyperplasia, focal; negative margin. - Background lung tissue with subpleural fibroelastotic changes, interstitial fibrosis, chronic inflammation, patchy bronchiolitis and emphysematous change. - Negative for invasive carcinoma. B. Lung, right upper lobe #2, wedge resection: Benign lung tissue with subpleural fibroelastotic changes, interstitial fibrosis, chronic inflammation, patchy bronchiolitis and emphysematous change; negative for malignancy. Labs on day of discharge: Laboratory Results - last 24 hr 03/08/24 13:34 Sodium 138 Potassium 3.3 D Chloride 103 Carbon Dioxide 29 Anion Gap 9 L BUN 7 L Creatinine 0.82 Estim Creat Clear Calc 48.5 Estimated GFR > 60 Random Glucose 142 H Calcium 9.6 D Phosphorus 4.6 H Magnesium 2.0 Discharge Plan Discharge Anticipated Discharge Date/Time: 03/09/24 10:06 Patient Disposition: Home Health Service Discharge Diagnosis: s/p VATS right upper wedge resection Referrals: Tenisha Neely MD [Primary Care Provider] - 1 Week Jordan Trejo MD [Physician] - 1 Week Discharge Medications: New hydrocodone-acetaminophen 5-325 mg tablet 1 tab PO Q4-6H PRN (Reason: pain) Qty: 30 0RF Rx Instructions: Partial Fill upon patient request. sennosides [Senokot] 8.6 mg tablet 8.6 mg PO DAILY PRN (Reason: constipation) Qty: 14 0RF Continued lisinopril 20 mg tablet 20 mg PO DAILY Qty: 90 3RF amlodipine 5 mg tablet 5 mg PO DAILY Qty: 90 2RF metoprolol succinate 25 mg tablet extended release 24 hr 25 mg PO BEDTIME acetaminophen 500 mg Tablet 500 mg PO Q6-8H PRN (Reason: Pain) cholecalciferol (vitamin D3) 50 mcg (2,000 unit) Tablet 100 mcg PO DAILY aspirin [Adult Aspirin Regimen] 81 mg tablet,delayed release (DR/EC) 81 mg PO DAILY ascorbic acid (vitamin C) 1,000 mg tablet 500 mg PO DAILY diclofenac sodium [Arthritis Pain (diclofenac)] 1 % gel 2 g topical DAILY PRN (Reason: Pain) Rx Instructions: Uses on lower back atorvastatin 20 mg tablet 20 mg PO BEDTIME Qty: 90 3RF Discharge Orders: Discharge Order (Routine); Ordered 03/09/24 Ordered By: Senait Jackson Diet: Advance to usual diet Activity on Discharge: No heavy lifting Stand Alone Forms: Patient Portal Discharge page Print Language: Vietnamese Activity Restrictions/Additional Instructions: Apply an ice pack for short intervals (20 minutes on, followed by at least 20 minutes off) for the first 2 days. Do not apply heat. Do not use creams, lotions, or topical antibiotics. These can cause infection or allergic reaction. Ok to shower 48 hours after your surgery. You have steri strips (small white cloth strips) covering your incision- these will fall off ~1 week. Chest tube dressing change every other day with xeroform, 4x4 and tape. Chest tube with heimlich valve in place. Follow up in office with Dr. Trejo on 03/16/24. ([phone]) No heavy lifting (>10lbs) or strenuous activity! Call Your Doctor If: -Your temperature exceeds 101.5? F -You experience excessive pain or swelling -You have an unexpected reaction to medication -You have excessive bleeding -You experience continued vomiting/nausea -Your incision begins to separate -Your incision shows signs of infection such as increased redness, swelling, excessive pain, drainage (light blood or clear fluid is normal) or heat Care Plan Goals: Return to baseline health and resume normal activities following recovery period. Eventual chest tube removal. Health Concerns: right upper lobe pulmonary nodule former smoker HTN Plan of Treatment: s/p VATS right upper wedge resection chest tube in place home with VNA services f/u in office for post op visit Assessment: Doing well post op. Discharge Date/Time: 03/09/24 12:52
== END 2024-03-09 12:52 | disposition home health service (06) | DRG 168 ==
LOC: HO.SSSA 08:29 → HO.IMC 14:06
PROVIDERS: Nurse Practitioner; Physician Assistant Surgical; Admitting Provider Surgery; PCP Internal Medicine; Visit Provider Surgery
PROC: 0BBC4ZX Excision of Right Upper Lung Lobe, Percutaneous Endoscopic Approach, Diagnostic (ICD-10-PCS; principal; 2024-03-04 08:40)
DX: R91.1 Solitary pulmonary nodule (principal); J43.9 Emphysema, unspecified; I10 Essential (primary) hypertension; R73.02 Impaired glucose tolerance (oral); E78.5 Hyperlipidemia, unspecified; Z87.891 Personal history of nicotine dependence; Z79.82 Long term (current) use of aspirin; Z79.899 Other long term (current) drug therapy
CPT/HCPCS: 36415; 71045; 80048; 83735; 84100; 85025; 85027; 86850; 86900; 86901; 88307; 88329; 88331; 93005; 99222; A4649; A7041; C1758; C9290; J0131; J1100; J1171; J1644; J2003; J2250; J2270; J2405; J2704; J2765; J2795; J3010; J7120

== ENCOUNTER → 2024-03-04 07:22 | Outpatient (BNV) | payer MEDICARE, OTHER, SELFPAY | PROVIDERS: Admitting Provider Surgery; PCP Internal Medicine; Visit Provider Surgery | DX: R91.1 Solitary pulmonary nodule (principal) | CPT/HCPCS: 32666; 32667; 99024; 99429; G0180 ==

== ENCOUNTER 2024-03-15 11:44 | Outpatient (REF) | payer MEDICARE, OTHER, SELFPAY ==
--- NOTE | ~2024-03-15 | XR_ITS ---
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 Follow-up right pneumothorax prior to chest tube removal. COMPARISON: XR Chest 03/09/2024 TECHNIQUE: 2 views of the chest were obtained. FINDINGS: Stable positioning of the right chest tube, tip in the right lung apex. Similar trace right pneumothorax. Redemonstrated postsurgical changes in the right upper hemithorax. No new focal consolidation. Cardiomediastinal silhouette is normal. No significant pleural effusion. XR/XR chest 2V IMPRESSION: Similar trace right apical pneumothorax. Study is assigned for dictation on May 12, 2024 The report will be called to the ordering clinician by a [place] [facility] Phys[facility] Internal Combustion Engine Inspector. Electronically signed by: Willam Nichols MD 05/12/2024 12:52 PM HUMA HARMON
== END 2024-03-15 11:45 | disposition home or self-care (01) ==
LOC: HO.XRAY 11:44
PROVIDERS: PCP Internal Medicine; Visit Provider Surgery
DX: Z90.2 Acquired absence of lung [part of] (principal)
CPT/HCPCS: 71046

== ENCOUNTER 2024-03-16 11:06 | Outpatient (AMB) | payer MEDICARE, OTHER, SELFPAY ==
--- NOTE | 2024-03-16 11:12 | A.OFFVIS_ITS ---
Intake Visit Reasons: S/P bronchoscopy Intake Note: Patient here s/p bronchoscopy, VATS Rt upper lobe wedge X2. Reports incisions healing well. Patient c/o: mild draining from tube site on left flank. Feels sore. Taking Vicodin as needed. Digital Manager Required: No Accompanied by: Self / Same As Patient Allergies celecoxib Adverse Reaction (Mild, Verified 03/16/24 11:12) dry mouth , feels weak /sluggish HPI Comments Details: Patient presents for follow-up. She is here for chest tube removal. She has no wound issues or complaints. Chest x-ray demonstrates no pneumothorax. On exam today Heimlich valve demonstrates no air leak. [facility] Medical History (Updated 03/05/24 @ 08:56 by Allyssa Kay PA-C) Arthritis Back pain Mild emphysema Elevated cholesterol Murmur Impaired fasting glucose Carotid stenosis, bilateral Nicotine dependence, cigarettes, uncomplicated Essential hypertension Pulmonary nodule Intermittent left-sided chest pain Uncontrolled hypertension Emphysema lung Osteopenia of left femoral neck Insomnia Lumbar degenerative disc disease Surgical History (Updated 03/16/24 @ 12:08 by Jordan Trejo MD) Abnormal CT lung screening Hx of colonoscopy History of tonsillectomy History of tubal ligation Family History Father HTN (hypertension) Cancer of prostate Hyperlipidemia Mother HTN (hypertension) Colon cancer Breast cancer Lung cancer Maternal Grandmother No problems noted. Maternal Grandfather Lung cancer Paternal Grandmother No problems noted. Paternal Grandfather Colon cancer Brother No problems noted. Brother No problems noted. Sister No problems noted. Son No problems noted. Social History Household Members: Spouse Housing: House Are you a primary workforce investment act career manager to a significant other at home: No Do you presently have visiting nurse or other home services: No Alcohol intake: current Alcohol intake frequency: a few times a month Patient Tobacco Use Status: Former Tobacco user Tobacco use type: Cigarette Cigarette Packs Per Day: 1.5 Cigarettes Per Day: 10 Years Smoked: 40 years e-Cigarette/Vaping Use: Never Used Second Hand Smoke Exposure: No service: No Current occupational status: retired Cognitive needs: No Hearing needs: No Vision needs: Yes Physical Exam Chest Other: Incisions all clean dry and intact. Patient underwent uneventful chest tube removal with occlusive dressing. Good breath sounds bilaterally. Patient tolerated procedure well. Assessment & Plan Assessment & Plan (1) S/P partial lobectomy of lung: Code(s): Z90.2 - Acquired absence of lung [part of] Category: Surgical (2) Postop check: Code(s): Z09 - Encounter for follow-up examination after completed treatment for conditions other than malignant neoplasm Category: Surgical Plan Patient was been given local instructions, continue VNA services regarding chest tube site care, and will follow-up as directed or p.r.n.. All questions answered. Coding Level of Care Code Global (03489) Diagnoses S/P partial lobectomy of lung Z90.2 Postop check Z09
== END 2024-03-16 11:34 | disposition home or self-care (01) ==
PROVIDERS: PCP Internal Medicine; Visit Provider Surgery
DX: Z90.2 Acquired absence of lung [part of] (principal); Z09 Encounter for follow-up examination after completed treatment for conditions other than malignant neoplasm
CPT/HCPCS: 99024

== ENCOUNTER → 2024-03-16 11:06 | Outpatient (BNVA) | payer MEDICARE, OTHER, SELFPAY | PROVIDERS: PCP Internal Medicine; Visit Provider Surgery | DX: Z90.2 Acquired absence of lung [part of] (principal); Z09 Encounter for follow-up examination after completed treatment for conditions other than malignant neoplasm | CPT/HCPCS: 99212 ==

== ENCOUNTER 2024-04-06 11:08 | Outpatient (AMB) | payer MEDICARE, OTHER, SELFPAY ==
--- NOTE | 2024-04-06 11:09 | A.OFFVIS_ITS ---
Vital Signs 04/06/24 11:18 Height 5 ft 1 in Weight 110 lb BMI 20.8 Pulse Oximetry (%) 98 Oxygen Delivery Method Room Air Intake Visit Reasons: 3 wk follow up S/P bronchoscopy Intake Note: Patient here for 3wk follow up s/p bronchoscopy. Reports healing well. Patient c/o: reports numbness axilla. Security Support Analyst Required: No Accompanied by: Self / Same As Patient Allergies celecoxib Adverse Reaction (Mild, Verified 04/06/24 11:19) dry mouth , feels weak /sluggish Medication List - Last Reconciled 04/06/24 by Jordan Trejo MD acetaminophen 500 mg PO Q6-8H PRN amlodipine 5 mg PO DAILY ascorbic acid (vitamin C) 500 mg PO DAILY aspirin (Adult Aspirin Regimen) 81 mg PO DAILY atorvastatin 20 mg PO BEDTIME cholecalciferol (vitamin D3) 100 mcg PO DAILY diclofenac sodium 1% (Arthritis Pain (diclofenac)) 2 grams topical DAILY PRN hydrocodone-acetaminophen 5-325 mg 1 tab PO Q4-6H PRN lisinopril 20 mg PO DAILY metoprolol succinate ER 25 mg PO BEDTIME sennosides (Senokot) 8.6 mg PO DAILY PRN HPI Comments Details: Patient was presents for 2nd postop visit. She is doing well. She has no acute respiratory issues or complaints. She has some incisional discomfort which is improving. She is increasing her activity level. O2 saturation 98-99% PFSH Medical History Arthritis Back pain Mild emphysema Elevated cholesterol Murmur Impaired fasting glucose Carotid stenosis, bilateral Nicotine dependence, cigarettes, uncomplicated Essential hypertension Pulmonary nodule Intermittent left-sided chest pain Uncontrolled hypertension Emphysema lung Osteopenia of left femoral neck Insomnia Lumbar degenerative disc disease Surgical History (Updated 04/06/24 @ 11:22 by Jordan Trejo MD) Postop check S/P partial lobectomy of lung Hx of colonoscopy History of tonsillectomy History of tubal ligation Family History Father HTN (hypertension) Cancer of prostate Hyperlipidemia Mother HTN (hypertension) Colon cancer Breast cancer Lung cancer Maternal Grandmother No problems noted. Maternal Grandfather Lung cancer Paternal Grandmother No problems noted. Paternal Grandfather Colon cancer Brother No problems noted. Brother No problems noted. Sister No problems noted. Son No problems noted. Social History Household Members: Spouse Housing: House Are you a primary health care specialist to a significant other at home: No Do you presently have visiting nurse or other home services: No Alcohol intake: current Alcohol intake frequency: a few times a month Patient Tobacco Use Status: Former Tobacco user Tobacco use type: Cigarette Cigarette Packs Per Day: 1.5 Cigarettes Per Day: 10 Years Smoked: 40 years e-Cigarette/Vaping Use: Never Used Second Hand Smoke Exposure: No service: No Current occupational status: retired Cognitive needs: No Hearing needs: No Vision needs: Yes Physical Exam Vital Signs: Last Vital Signs Pulse Ox 98 04/06/24 11:18 Oxygen Delivery Method Room Air 04/06/24 11:18 BMI result Body Mass Index 20.8 Chest Other: Chest breath sounds bilaterally equal. Incisions all clean dry and intact healing well Assessment & Plan Assessment & Plan (1) Postop check: Code(s): Z09 - Encounter for follow-up examination after completed treatment for conditions other than malignant neoplasm Category: Surgical Plan Patient was to continue slowly but steadily increasing her activity level. She will see me in 6 months time proceeded by low-dose CT screening chest or p.r.n.. All questions answered. Orders: Orders CT lung screening 6 Months Z90.2 - Acquired absence of lung [part of] Coding Level of Care Code Global (78575) Diagnoses Postop check Z09
[2024-04-06 11:18] VITALS: O2SAT 98; BMI 20.8
== END 2024-04-06 11:22 | disposition home or self-care (01) ==
LOC: HO.HGS 11:09
PROVIDERS: PCP Internal Medicine; Visit Provider Surgery
DX: Z09 Encounter for follow-up examination after completed treatment for conditions other than malignant neoplasm (principal)
CPT/HCPCS: 99024

== ENCOUNTER → 2024-04-06 11:08 | Outpatient (BNVA) | payer MEDICARE, OTHER, SELFPAY | PROVIDERS: PCP Internal Medicine; Visit Provider Surgery | DX: R20.0 Anesthesia of skin (principal); Z09 Encounter for follow-up examination after completed treatment for conditions other than malignant neoplasm; Z90.2 Acquired absence of lung [part of]; Z87.891 Personal history of nicotine dependence; Z98.890 Other specified postprocedural states | CPT/HCPCS: 99212 ==

== ENCOUNTER 2024-06-07 10:55 | Outpatient (AMB) | payer MEDICARE, OTHER, SELFPAY ==
[2024-06-07 10:57] VITALS: BP 120/62; PULSE 63; BMI 21.5
--- NOTE | 2024-06-07 10:57 | MHC.OFFVIS ---
Vital Signs 06/07/24 10:57 Height 5 ft 1 in Weight 113 lb 12.136 oz BMI 21.5 BP 120/62 Blood Pressure Location Lt brachial Position Sitting Pulse 63 Pulse Source Pulse Oximeter Intake Visit Reasons: 8m follow up [facility]ake [facility] Lavatory Attendant Required: No Accompanied by: Self / Same As Patient Allergies celecoxib Adverse Reaction (Mild, Verified 04/06/24 11:19) dry mouth , feels weak /sluggish Medication List - Last Reconciled 06/07/24 by Dionicio Wong MD acetaminophen 500 mg PO Q6-8H PRN amlodipine 5 mg PO DAILY ascorbic acid (vitamin C) 500 mg PO DAILY aspirin (Adult Aspirin Regimen) 81 mg PO DAILY atorvastatin 20 mg PO BEDTIME cholecalciferol (vitamin D3) 100 mcg PO DAILY diclofenac sodium 1% (Arthritis Pain (diclofenac)) 2 grams topical DAILY PRN hydrocodone-acetaminophen 5-325 mg 1 tab PO Q4-6H PRN lisinopril 20 mg PO DAILY metoprolol succinate ER 25 mg PO BEDTIME sennosides (Senokot) 8.6 mg PO DAILY PRN HPI Comments Details: Pleasant 68-year-old lady who is here for follow-up. She was last seen by me in 06/21/2023 when she presented with chest discomfort. She was experiencing a pressure-like feeling in the chest lasting for few seconds and underwent stress testing for that where she was able to exercise to 7 metabolic equivalents without any significant ECG changes or chest discomfort. She was medically treated after that for hypertension and has been taking lisinopril metoprolol and amlodipine with good blood pressure control. She had bilateral carotid bruits and has been on statin therapy for that. She stopped smoking but restarted and stopped again on the 06/02/2024. I have encouraged her not to restart. She just had VATS resection of nodules in the lung which luckily were not cancerous. [facility] Medical History (Updated 04/23/24 @ 08:48 by Jazmin Nelson PA-C) Arthritis Back pain Mild emphysema Elevated cholesterol Murmur Impaired fasting glucose Carotid stenosis, bilateral Nicotine dependence, cigarettes, uncomplicated Essential hypertension Pulmonary nodule Intermittent left-sided chest pain Uncontrolled hypertension Emphysema lung Osteopenia of left femoral neck Insomnia Lumbar degenerative disc disease Surgical History S/P partial lobectomy of lung Hx of colonoscopy History of tonsillectomy History of tubal ligation Family History Father HTN (hypertension) Cancer of prostate Hyperlipidemia Mother HTN (hypertension) Colon cancer Breast cancer Lung cancer Maternal Grandmother No problems noted. Maternal Grandfather Lung cancer Paternal Grandmother No problems noted. Paternal Grandfather Colon cancer Brother No problems noted. Brother No problems noted. Sister No problems noted. Son No problems noted. Social History Household Members: Spouse Housing: House Are you a primary child care teacher to a significant other at home: No Do you presently have visiting nurse or other home services: No Alcohol intake: current Alcohol intake frequency: a few times a month Patient Tobacco Use Status: Former Tobacco user Tobacco use type: Cigarette Cigarette Packs Per Day: 1.5 Cigarettes Per Day: 10 Years Smoked: 40 years e-Cigarette/Vaping Use: Never Used Second Hand Smoke Exposure: No service: No Current occupational status: retired Cognitive needs: No Hearing needs: No Vision needs: Yes Review of Systems Const Denies chills, Denies fatigue, Denies fever(s), Denies frequent falls, Denies weakness, Denies weight gain and Denies weight loss ENT Denies dizziness Card Denies chest pain, Denies leg edema, Denies lightheadedness, Denies palpitations, Denies dyspnea and Denies dyspnea on exertion Resp Denies cough, Denies dyspnea and Denies dyspnea on exertion GI Denies hematochezia Musc Denies abnormal gait, Denies muscle weakness, Denies numbness, Denies radiating pain into limb and Denies tingling Neuro Denies abnormal gait, Denies dizziness, Denies frequent falls, Denies numbness, Denies tingling and Denies weakness Endo Denies fatigue and Denies palpitations Physical Exam Vital Signs: Last Vital Signs Pulse 63 06/07/24 10:57 BP 120/62 06/07/24 10:57 BMI result Body Mass Index 21.5 GENERAL APPEARANCE: in no acute distress, pleasant. NECK: Left carotid bruit, no jugular venous distention. SKIN: no suspicious lesions, warm and dry. HEART: no murmurs, regular rate and rhythm. LUNGS: clear to auscultation bilaterally. ABDOMEN: soft, nontender. EXTREMITIES: no edema. PERIPHERAL PULSES: equal. NEUROLOGIC: No gross deficits, AAO X 3 Assessment & Plan Assessment & Plan (1) Essential hypertension: Code(s): I10 - Essential (primary) hypertension Category: Medical (2) Left carotid bruit: Code(s): R09.89 - Other specified symptoms and signs involving the circulatory and respiratory systems Category: Medical (3) Chest pain: Code(s): R07.9 - Chest pain, unspecified Category: Medical Plan 68-year-old female who is here for follow-up. She has been experiencing chest pains for many many years and stress testing up to 7 metabolic equivalents was normal. She was getting chest pains at rest also. I think this is noncardiac chest pain and does not need further testing currently. I have discussed with her in detail that if chest discomfort becomes exertional or episodes we become more prolonged then she should get in touch with us. In that case we will consider either coronary CTA or diagnostic angiography. Left carotid bruit without any significant stenosis on ultrasound. She is on aspirin and atorvastatin which she should continue. She has stopped smoking again and I have advised her not to restart smoking. She just had lung nodule resection which luckily were noncancerous. She will see us back in 1 year. Thank you for allowing me to participate in the care of your patient. Please feel free to contact me if you have any questions. Coding Level of Care Code Est Pt Level 4 (76596) Diagnoses Essential hypertension I10 Left carotid bruit R09.89 Chest pain R07.9
== END 2024-06-07 11:11 | disposition home or self-care (01) ==
PROVIDERS: PCP Internal Medicine; Visit Provider Internal Medicine Cardiovascular Disease
DX: I10 Essential (primary) hypertension (principal); R09.89 Other specified symptoms and signs involving the circulatory and respiratory systems; R07.9 Chest pain, unspecified
CPT/HCPCS: 99214

== ENCOUNTER 2024-06-30 10:41 | Outpatient (AMB) | payer MEDICARE, OTHER, SELFPAY ==
[2024-06-30 11:25] VITALS: BP 128/60; PULSE 61; RESP 15; TEMP 36.7; O2SAT 100; BMI 21.7
--- NOTE | 2024-06-30 11:25 | A.OFFVIS_ITS ---
Intake Vital Signs 06/30/24 11:25 Height 5 ft 1 in Weight 115 lb BMI 21.7 BP 128/60 Blood Pressure Location Lt brachial Position Sitting Respiration 15 Pulse 61 Pulse Source Pulse Oximeter Temp 98.0 F Temp Source Oral Pulse Oximetry (%) 100 Oxygen Delivery Method Room Air Intake Visit Reasons: AWV Intake Note: Pt is here today for her AWV: Last mammogram 09/08/23, colonoscopy 02/13/24 Allergies celecoxib Adverse Reaction (Mild, Verified 07/04/24 16:57) dry mouth , feels weak /sluggish Medication List - Last Reconciled 07/04/24 by Tenisha Neely MD acetaminophen 500 mg PO Q6-8H PRN amlodipine 5 mg PO DAILY ascorbic acid (vitamin C) 500 mg PO DAILY aspirin (Adult Aspirin Regimen) 81 mg PO DAILY atorvastatin 20 mg PO BEDTIME cholecalciferol (vitamin D3) 100 mcg PO DAILY diclofenac sodium 1% (Arthritis Pain (diclofenac)) 2 grams topical DAILY PRN lisinopril 20 mg PO DAILY metoprolol succinate ER 25 mg PO BEDTIME sennosides (Senokot) 8.6 mg PO DAILY PRN HPI AWV HPI Details SWV ? 68 year old lady with past medical history significant for hypertension, emphysema, continues to smoke with no desire to quit at present time, goes for yearly low-dose CT scan of chest for lung cancer screening, has osteopenia of left femoral neck , insomnia, and lumbar degenerative disc disease, presents today for her ? subsequent annual Wellness Visit. She is up-to-date with her screening mammogram done 09/08/2023 at [facility] with negative findings, sees her OB at [place] Dr. Lawson for her routine Pap and pelvic exam, last done in 2021 with normal findings. Last bone density scan done 03/17/2019 showed presence of osteopenia. She is up-to-date with her diabetes screening and cholesterol screening, done 10/11/2023, both with normal findings. Has had a screening colonoscopy done 02/13/[address] Vazquez with negative findings, but repeat due again in 2028 due to history of adenomatous polyp and family history for colon cancer. Underwent VATS resection of nodules in the right upper lobe of lung which luckily were not cancerous. She is up-to-date with her pneumonia vaccination, shingles vaccine Tdap but does not want to get to get COVID booster, flu shot or RSV vaccine. ? Medical / Social History Reviewed? Past Medical History ?Yes . ? [place] of Care / Care Team list updated ?Yes . ? Surgical/Hospitalization History ?Yes . ? Current Medications (including OTC and supplements) ?Yes . ? Family History ?Yes . ? Tobacco Control form ?Yes . ? AUDIT-C (Alcohol use) form ?Yes . ? Illicit drug use in Social History ?Yes . ? Current diagnosis of depression? ?No ? Appropriate PHQ2/PHQ9 completed ?Yes . ? Data entered by ?[employer] and reviewed by provider ? Fall Risk ? Fall History? Have you had any falls with injury in the past year? ?No . ? Have you had two or more falls in the past year? ?No . ? Fall Risk Assessment: ?No falls in the past year . ? HRA filled out by the patient, reviewed by Provider and scanned. ?? AWV ? Balance? Romberg ?negative ? Tandem walk ?Yes . ? Walk and Turn ?Yes . ? Rise from sit to stand ?Yes . ?Vision? Corrective lens ?Yes ? Vision screen ? currently looking for a new eye doctor, as Dr. Gibbons has stopped taking her insurance ?Hearing? Whisper test ?pass . ?Written Plan?Completed. See Patient Documents.? [facility] Medical History (Updated 07/04/24 @ 17:12 by Tenisha Neely MD) Former cigarette smoker Dyslipidemia Arthritis Mild emphysema Impaired fasting glucose Carotid stenosis, bilateral Essential hypertension Uncontrolled hypertension Emphysema lung Osteopenia of left femoral neck Insomnia Lumbar degenerative disc disease Surgical History S/P partial lobectomy of lung Hx of colonoscopy History of tonsillectomy History of tubal ligation Family History Father HTN (hypertension) Cancer of prostate Hyperlipidemia Mother HTN (hypertension) Colon cancer Breast cancer Lung cancer Maternal Grandmother No problems noted. Maternal Grandfather Lung cancer Paternal Grandmother No problems noted. Paternal Grandfather Colon cancer Brother No problems noted. Brother No problems noted. Sister No problems noted. Son No problems noted. Social History Household Members: Spouse Housing: House Are you a primary regular senior care provider to a significant other at home: No Do you presently have visiting nurse or other home services: No Alcohol intake: current Alcohol intake frequency: a few times a month Patient Tobacco Use Status: Former Tobacco user Tobacco use type: Cigarette Cigarette Packs Per Day: 1.5 Cigarettes Per Day: 10 Years Smoked: 40 years e-Cigarette/Vaping Use: Never Used Second Hand Smoke Exposure: No service: No Current occupational status: retired Cognitive needs: No Hearing needs: No Vision needs: Yes Questionnaire Medicare Wellness Checkup What [age] 65-71 What gender do you identify with?: female During the past 4 weeks, how much have you been bothered by emotional problems such as feeling anxious, depressed, irritable, sad or downhearted, and blue?: quite a bit During the past 4 weeks, has your physical & emotional health limited your social activities with family, friends, neighbors, or groups?: slightly During the past 4 weeks, how much bodily pain have you generally had?: moderate pain During the past 4 weeks, was someone available to help you if you needed & wanted help?: yes, as much as I wanted During the past 4 weeks, what was the hardest physical activity you could do for at least 2 minutes?: heavy Can you get to places out of walking distance without help? (For eg., can you travel alone on buses, taxis or drive your car?): Yes Can you go shopping for groceries or clothes without someone's help?: Yes Can you prepare your own meals?: Yes Can you do your housework without help?: Yes Because of any health problems, do you need the help of another person with your personal care needs such as eating, bathing, dressing or getting around the house?: No Can you handle your own money without help?: Yes During the past 4 weeks, how would you rate your health in general?: good During the past 4 weeks how have things been going for you?: good & bad parts about equal Are you having difficulties driving your car?: no Do you always fasten your seat belt when you are in a car?: yes, usually During past 4 weeks, have you been bothered by the following: never: Falling or dizzy when standing up, Sexual problems? and Problems using the telephone?, sometimes: Trouble eating well? and Teeth or denture problems? and often: Tiredness or fatigue? Have you fallen 2 or more times in the past year?: No Are you afraid of falling?: No Are you a smoker?: yes, and I might quit During the past 4 weeks, how many drinks of wine, beer, or other alcoholic beverages did you have?: 1 drink or less per week Do you exercise for about 20 minutes 3 or more times a week?: no, I usually do not exercise this much Have you been given information to help with the following?: no: Hazards in your house that might hurt you? and no: Keeping track of your medications? How often do you have trouble taking medicines the way you have been told to take them?: I always take medicine as prescribed How confident are you that you can control & manage most of your health problems?: very confident What is your race?: White Mini Mental State Exam (MMSE) Orientation What is the (year) (season) (date) (day) (month)?: year (2024), season (Winter), date (06/30/2024), day and month (June) Where are we (state) (county) (town or city) (hospital) (floor)?: state ([place]), county ([place]), town or city ([place]) and hospital/clinic ([facility]) Score Score: 9 Activity of Daily Living Bathing - sponge bath, tub bath or shower: receives no assistance (gets in/out by self, if usual bathing means Dressing - getting clothes from closets & drawers, including inner/outer garments & fasteners.: gets clothes & gets completely dressed without help Toileting - going to the 'toilet room' for urine/bowel elimination & cleaning self/arranging clothes: goes to toilet room, cleans self, arranges clothes without help Transfer: moves in & out of bed and chair without help (may use support object) Continence: controls urination/bowel movements completely by self Feeding: feeds self without help Total Score: 0 Information obtained from: patient Using telephone: independent Traveling: independent Shopping: independent Preparing meals: independent Housework: independent Taking medicine: independent Managing money: independent PHQ-9 Over the last 2 weeks, how often have you been bothered by any of the following problems? 1. Little interest or pleasure in doing things: not at all 2. Feeling down, depressed, or hopeless: not at all 3. Trouble falling or staying asleep, or sleeping too much: several days 4. Feeling tired or having little energy: several days 5. Poor appetite or overeating: several days 6. Feeling bad about yourself - or that you are a failure or have let yourself or your family down: not at all 7. Trouble concentrating on things, such as reading the newspaper or watching television: not at all 8. Moving or speaking so slowly that other people could have noticed. Or the opposite - being so fidgety or restless that you have been moving around a lot more than usual: not at all 9. Thoughts that you would be better off or of hurting yourself in some way: not at all Total score: 3 Depression Screening Interpretation: Negative Depression Screening Done: Yes 82581 - PHQ-9 Billing: Yes Source: Developed by Drs. Bertram Garzon, Vira Hunter, Josiah Ventura and colleagues, with an educational fam from [employer]. Physical Exam Vital Signs: Last Vital Signs Temp 98.0 F 06/30/24 11:25 Pulse 61 06/30/24 11:25 Resp 15 06/30/24 11:25 BP 128/60 06/30/24 11:25 Pulse Ox 100 06/30/24 11:25 Oxygen Delivery Method Room Air 06/30/24 11:25 BMI result Body Mass Index 21.7 Assessment & Plan Assessment & Plan (1) Encounter for annual wellness visit (AWV) in Medicare patient: Code(s): Z00.00 - Encounter for general adult medical examination without abnormal findings Plan: Medical wellness checklist reviewed, discussed with patient and updated. Copy given. Up-to-date with her advanced directives. Bone density scan and screening mammogram ordered (2) Osteopenia of left femoral neck: Comment: Noted on bone density done 2018, no change from previous Code(s): M85.852 - Other specified disorders of bone density and structure, left thigh Plan: Repeat bone density scan ordered, (3) Impaired fasting glucose: Code(s): R73.01 - Impaired fasting glucose Plan: Your previous fasting blood sugars were elevated above 100 mg/dL. Impaired glucose metabolism increases the risk for developing diabetes mellitus type 2, as well as heart attack and stroke later on. Lifestyle changes that promotes weight loss, healthy eating habits, and regular exercise are important, and can prevent the progression to diabetes (4) Essential hypertension: Code(s): I10 - Essential (primary) hypertension Plan: Blood pressure at goal of less than 130/80. Continue with current medication. Reinforced importance of following a low sodium diet, getting regular exercise, and lowering stress levels. (5) Lumbar degenerative disc disease: Code(s): M51.36 - Other intervertebral disc degeneration, lumbar region Plan: Takes Tylenol as needed for pain (6) Dyslipidemia: Code(s): E78.5 - Hyperlipidemia, unspecified Plan: Currently on atorvastatin 20 mg daily (7) Carotid stenosis, bilateral: Code(s): I65.23 - Occlusion and stenosis of bilateral carotid arteries Plan: Continue atorvastatin mg daily and aspirin 81 mg daily, reinforced importance of getting blood pressure well controlled as well as continuing abstinence from smoking Orders: Orders XR DEXA axial skeleton 06/30/24 M85.852 - Other specified disorders of bone density and structure, left thigh MM tomosynthesis screening BI 06/30/24 Z12.31 - Encounter for screening mammogram for malignant neoplasm of breast Quality Reporting (2019) Depression/Bipolar (159/160/161/177) PHQ-9: Total score: 3 Coding Level of Care Code Medicare Subsequent (G0439) Diagnoses Encounter for annual wellness visit (AWV) in Medicare patient Z00.00 Osteopenia of left femoral neck M85.852 Impaired fasting glucose R73.01 Essential hypertension I10 Lumbar degenerative disc disease M51.36 Dyslipidemia E78.5 Carotid stenosis, bilateral I65.23 CPT Codes Advance Care Planning - Time spent: 1-15 minutes, on File ([id number]) Additional Codes PHQ-9 - 98339 - PHQ-9 Billing: Yes ([id number]) Advance Care Planning Advance Care Planning discussion: Completed/Scanned Who was present: patient Forms completed: Health Care Proxy and MOLST Time spent: 1-15 minutes, on File Actual minutes spent: 1
--- OUTSIDE RECORDS SUMMARY | 2024-06-30 12:47 | XMS_ITS | Continuity of Care Document ---
Author Name [facility] Organization [facility] Care Team Providers Care Controlled Atmospheric Furnace Brazer Name Role Phone [facility] Unavailable Unavailable Medications Combined list of outpatient medications from Department of Defense and Veterans Affairs facilities.Medications provided include 1) outpatient medications from the last 15 months, and 2) patient-reported medications. Medication Details Route Status Patient Instructions Prescription Expires Prescription Number Last Dispense Date Ordering Provider Order Date Order Qty Source AMLODIPINE BESYLATE (AMLODIPINE BESYLATE), 10 MG, TABLET, ORAL, [employer] 1000 ea. BOTTLE Active [id number] 4 2023 30 Pharmac y Data Transac tion Service Facilit y AMLODIPINE BESYLATE (AMLODIPINE BESYLATE), 10 MG, TABLET, ORAL, [employer], 1000 ea. BOTTLE Active [id number] 4 2023 45 Pharmac y Data Transac tion Service Facilit y AMLODIPINE BESYLATE (AMLODIPINE BESYLATE), 10 MG, TABLET, ORAL, [employer], 1000 ea. BOTTLE Active [id number] 4 2023 45 Pharmac y Data Transac tion Service Facilit y ATORVASTATI N CALCIUM (atorvastat in calcium), 20 MG, TABLET, ORAL, [employer] I, 90 ea. BOTTLE Active [id number] 4 2023 90 Pharmac y Data Transac tion Service Facilit y ATORVASTATI N CALCIUM (atorvastat in calcium), 20 MG, TABLET, ORAL, [employer], 90 ea. BOTTLE Active [id number] 4 2023 90 Pharmac y Data Transac tion Service Facilit y HYDROCHLORO THIAZIDE (hydrochlor othiazide), 12.5 MG, TABLET, ORAL, [employer], 100 ea. BOTTLE Active [id number] 4 2023 90 Pharmac y Data Transac tion Service Facilit y LISINOPRIL (lisinopril ), 20 MG, TABLET, ORAL, EXELAN [employer]ARMACE, 1000 ea. BOTTLE Active [id number] 4 2023 90 Pharmac y Data Transac tion Service Facilit y LISINOPRIL (lisinopril ), 20 MG, TABLET, ORAL, [employer]ARMACE, 1000 ea. BOTTLE Active [id number] 4 2023 90 Pharmac y Data Transac tion Service Facilit y METOPROLOL SUCCINATE (metoprolol succinate), 25 MG, TAB ER 24H, ORAL, [employer] 1000 ea. BOTTLE Active [id number] 4 2023 90 Pharmac y Data Transac tion Service Facilit y METOPROLOL SUCCINATE (metoprolol succinate), 25 MG, TAB ER 24H, ORAL, [employer] 1000 ea. BOTTLE Active [id number] 4 2023 90 Pharmac y Data Transac tion Service Facilit y Social History Combined list of available smoking, tobacco, and other social history from Department of Defense and Veterans Affairs facilities. Social History Type Response Date Comment Sour e This section is an empty social history section. DoD
== END 2024-06-30 12:06 | disposition home or self-care (01) ==
PROVIDERS: PCP Internal Medicine; Visit Provider Internal Medicine
DX: Z00.00 Encounter for general adult medical examination without abnormal findings (principal); M85.852 Other specified disorders of bone density and structure, left thigh; R73.01 Impaired fasting glucose; I10 Essential (primary) hypertension; M51.369 Other intervertebral disc degeneration, lumbar region without mention of lumbar back pain or lower extremity pain; E78.5 Hyperlipidemia, unspecified; I65.23 Occlusion and stenosis of bilateral carotid arteries

== ENCOUNTER → 2024-06-30 10:41 | Outpatient (BNVA) | payer MEDICARE, OTHER, SELFPAY | PROVIDERS: PCP Internal Medicine; Visit Provider Internal Medicine | DX: Z00.00 Encounter for general adult medical examination without abnormal findings (principal); I10 Essential (primary) hypertension; J43.9 Emphysema, unspecified; M85.852 Other specified disorders of bone density and structure, left thigh; R73.01 Impaired fasting glucose; M51.360 Other intervertebral disc degeneration, lumbar region with discogenic back pain only; E78.5 Hyperlipidemia, unspecified; I65.23 Occlusion and stenosis of bilateral carotid arteries | CPT/HCPCS: 96127 ==

== ENCOUNTER 2024-07-02 08:19 | Outpatient (REF) | payer MEDICARE, OTHER, SELFPAY ==
--- OUTSIDE RECORDS SUMMARY | 2024-07-02 08:23 | XMS_ITS | Continuity of Care Document ---
Author Name [facility] Organization [facility] Care Team Providers Care Six Color Press Operator Name Role Phone [facility] Unavailable Unavailable Medications Combined list of outpatient medications from Department of Defense and Veterans Affairs facilities.Medications provided include 1) outpatient medications from the last 15 months, and 2) patient-reported medications. Medication Details Route Status Patient Instructions Prescription Expires Prescription Number Last Dispense Date Ordering Provider Order Date Order Qty Source AMLODIPINE BESYLATE (AMLODIPINE BESYLATE), 10 MG, TABLET, ORAL, [employer] 1000 ea. BOTTLE Active [id number] 4 2023 30 Pharmac y Data Transac tion Service Facilit y AMLODIPINE BESYLATE (AMLODIPINE BESYLATE), 10 MG, TABLET, ORAL, [employer], 1000 ea. BOTTLE Active [id number] 4 2023 45 Pharmac y Data Transac tion Service Facilit y AMLODIPINE BESYLATE (AMLODIPINE BESYLATE), 10 MG, TABLET, ORAL, [employer], 1000 ea. BOTTLE Active [id number] 4 2023 45 Pharmac y Data Transac tion Service Facilit y ATORVASTATI N CALCIUM (atorvastat in calcium), 20 MG, TABLET, ORAL, [employer] I, 90 ea. BOTTLE Active [id number] 4 2023 90 Pharmac y Data Transac tion Service Facilit y ATORVASTATI N CALCIUM (atorvastat in calcium), 20 MG, TABLET, ORAL, [employer], 90 ea. BOTTLE Active [id number] 4 2023 90 Pharmac y Data Transac tion Service Facilit y HYDROCHLORO THIAZIDE (hydrochlor othiazide), 12.5 MG, TABLET, ORAL, [employer], 100 ea. BOTTLE Active [id number] 4 2023 90 Pharmac y Data Transac tion Service Facilit y LISINOPRIL (lisinopril ), 20 MG, TABLET, ORAL, EXELAN PHARMACE, 1000 ea. BOTTLE Active [id number] 4 2023 90 Pharmac y Data Transac tion Service Facilit y LISINOPRIL (lisinopril ), 20 MG, TABLET, ORAL, EXELAN PHARMACE, 1000 ea. BOTTLE Active [id number] 4 2023 90 Pharmac y Data Transac tion Service Facilit y METOPROLOL SUCCINATE (metoprolol succinate), 25 MG, TAB ER 24H, ORAL, [employer] 1000 ea. BOTTLE Active [id number] 4 2023 90 Pharmac y Data Transac tion Service Facilit y METOPROLOL SUCCINATE (metoprolol succinate), 25 MG, TAB ER 24H, ORAL, [employer] 1000 ea. BOTTLE Active [id number] 4 2023 90 Pharmac y Data Transac tion Service Facilit y Social History Combined list of available smoking, tobacco, and other social history from Department of Defense and Veterans Affairs facilities. Social History Type Response Date Comment Sour e This section is an empty social history section. DoD
[2024-07-02 11:09] LABS: Estimated Average Glucose 103 mg/dL; Hemoglobin A1C 105.1516 umol/L; Hemoglobin A1c % 5.2 % (<6.0); Total Hemoglobin (HGBA1C) 3143.8391 umol/L
[2024-07-02 11:40] LABS: Alanine Aminotransferase 24 U/L (0-31); Anion Gap 10 (12-20); Aspartate Amino Transferase 23 U/L (5-31); Blood Urea Nitrogen 10 mg/dL (9-16); Calcium 9.6 mg/dL (8.4-10.2); Carbon Dioxide 27 mmol/L (22-29); Chloride 108 mmol/L (96-108); Cholesterol 137 mg/dL (<200); Estimated Glomerular Filt Rate > 60; Glucose Fasting 92 mg/dL (60-99); HDL Cholesterol 39 mg/dL (>40); LDL Cholesterol Calculated 69 mg/dL (<100); Potassium 4.4 mmol/L (3.3-5.1); Sodium 141 mmol/L (135-145); Triglycerides 149 mg/dL (<150)
== END 2024-07-02 08:20 | disposition home or self-care (01) ==
LOC: HO.HMGCLDS 08:19
PROVIDERS: PCP Internal Medicine; Visit Provider Internal Medicine
DX: R73.01 Impaired fasting glucose (principal); F17.210 Nicotine dependence, cigarettes, uncomplicated; I10 Essential (primary) hypertension; M85.852 Other specified disorders of bone density and structure, left thigh
CPT/HCPCS: 36415; 80048; 80061; 82306; 83036; 84450; 84460

== ENCOUNTER 2024-09-14 10:55 | Outpatient (REF) | payer MEDICARE, OTHER, SELFPAY ==
--- NOTE | ~2024-09-14 | CT_ITS ---
CLINICAL HISTORY: F17.210 - Nicotine dependence, cigarettes, uncomplicated Examination CT lung cancer screening History Screening examination performed for pulmonary nodules Technique Axial CT images of the chest using low-dose technique. Effective radiation dose total: 37.3 mGy-cm, CTDIvol 0.9 mGy. Referring provider counseled the patient on shared decision-making for LDCT screening. Additional counseling was provided on smoking cessation. Comparison: CT/MT/SR - CT BIOPSY LUNG RT - 12/29/23 10:33 EDT Findings: Lungs: Postsurgical change and scarring in the right upper lobe. Ground-glass opacity in the left upper lobe measuring 1.2 cm. Perifissural nodules measure up to 3 mm (series 4, image 58 along right major fissure). Solid nodules measure up to 3 mm (series 4, image 83 in the lingula) Mild paraseptal emphysema Coronary artery calcifications: Mild Other: None Limited upper abdomen: Unremarkable Impression: LungRADS 2 - Benign Appearance: Continue annual screening with low dose Chest CT in 12 months. ##L2# Category 1: Normal; continue annual screening Category 2: Benign appearance or behavior, continue annual screening Category 3: Probably benign, [address] recommended Category 4A: Suspicious, [address] recommended; may consider PET/CT Category 4B: Suspicious, Additional diagnostics and/or tissue sampling recommended Category 4X: Suspicious, Additional diagnostics and/or tissue sampling recommended Category 0: Recalls (incomplete screen due to Incomplete coverage, Noise, Respiratory motion, Expiration, Obscured by acute abnormality) This document has been electronically signed by: Arabella Panchal MD on 09/15/2024 21:26:38
== END 2024-09-14 10:56 | disposition home or self-care (01) ==
LOC: HO.CT 10:55
PROVIDERS: PCP Internal Medicine; Visit Provider Physician Assistant Medical
DX: R91.1 Solitary pulmonary nodule (principal); F17.210 Nicotine dependence, cigarettes, uncomplicated
CPT/HCPCS: 71250

== ENCOUNTER → 2024-09-14 10:57 | Outpatient (BNV) | payer MEDICARE, OTHER, SELFPAY | PROVIDERS: PCP Internal Medicine; Visit Provider Radiology Diagnostic Radiology | DX: F17.210 Nicotine dependence, cigarettes, uncomplicated (principal) | CPT/HCPCS: 71250 ==

== ENCOUNTER 2024-10-11 10:31 | Outpatient (AMB) | payer MEDICARE, OTHER, SELFPAY ==
--- NOTE | 2024-10-11 10:33 | AM.OFFWIN_ITS ---
Intake Vital Signs 3 10/11/24 10:35 Weight 112 lb BP 138/80 Blood Pressure Location Rt brachial Position Sitting Pulse 78 Pulse Source Pulse Oximeter Pulse Oximetry (%) 98 Oxygen Delivery Method Room Air Intake Visit Reasons: EP RT eye/face swelling/red/painful Intake Note: Patient here for right side of face swelling, redness and pain that started yesterday. Patient Tobacco Use Status: Former Tobacco user Allergies celecoxib Adverse Reaction (Mild, Verified 10/11/24 10:35) dry mouth , feels weak /sluggish Do you need a note to return to daycare/school/sports/work: No HPI HPI Comments 2 History of Present Illness0 Details 68 y/o Female patient who presents to [facility] walk in clinic with c/o right side of face swelling, redness and pain that started Friday. Reports that she was eating Popcorn Friday and went to [place] her teeth afterwards. Pt Started to experience Right sided Facial pain, Gum tenderness and swelling the next day morning. She thinks maybe she might have irritated her Gums or chipped tooth with brushing. She does have a Broken tooth for weeks now but with no pain. She has been meaning to call her dentist for an appointment. Denies Nasal congestion, vision changes or Ear pain. Denies fevers, chills, nausea or vomiting. COUNTS INCLUDE 234 BEDS AT THE [facility] Medical History (Updated 10/11/24 @ 10:52 by Radha Lees NP) Facial edema Former cigarette smoker Dyslipidemia Arthritis Mild emphysema Impaired fasting glucose Carotid stenosis, bilateral Essential hypertension Uncontrolled hypertension Emphysema lung Osteopenia of left femoral neck Insomnia Lumbar degenerative disc disease Surgical History S/P partial lobectomy of lung Hx of colonoscopy History of tonsillectomy History of tubal ligation Family History Father HTN (hypertension) Cancer of prostate Hyperlipidemia Mother HTN (hypertension) Colon cancer Breast cancer Lung cancer Maternal Grandmother No problems noted. Maternal Grandfather Lung cancer Paternal Grandmother No problems noted. Paternal Grandfather Colon cancer Brother No problems noted. Brother No problems noted. Sister No problems noted. Son No problems noted. Social History Household Members: Spouse Housing: House Are you a primary patient care assistant to a significant other at home: No Do you presently have visiting nurse or other home services: No Alcohol intake: current Alcohol intake frequency: a few times a month Patient Tobacco Use Status: Former Tobacco user Tobacco use type: Cigarette Cigarette Packs Per Day: 1.5 Cigarettes Per Day: 10 Years Smoked: 40 years e-Cigarette/Vaping Use: Never Used Second Hand Smoke Exposure: No service: No Current occupational status: retired Cognitive needs: No Hearing needs: No Vision needs: Yes Review of Systems Const All systems reviewed & are unremarkable except as noted in HPI and below Physical Exam Vital Signs: Last Vital Signs Pulse 78 10/11/24 10:35 BP 138/80 10/11/24 10:35 Pulse Ox 98 10/11/24 10:35 Oxygen Delivery Method Room Air 10/11/24 10:35 HEENT Head: Yes normocephalic Ears: external ears normal and TM abnormal bulging and with fluid behind the TM bilateral General nose exam: No nasal discharge present and Abnormal mucous membranes and turbinates present erythematous Face and sinus: No crepitus and Yes other (Right sided Mandible/cheek swelling and tenderness. ) Mouth: moist mucous membranes, no drooling, no muffled voice and other (TMJ Normal) Teeth and gingiva: caries, gingiva abnormal diffusely erythematous and tender and poor dentition Teeth image: 2 1. Tooth broken in a Half Throat: Yes uvula midline Eyes Pupils: Equal, round and reactive pupils present EOM: EOMs intact bilaterally Neuro Cranial nerves: Yes Equal, round and reactive pupils present Assessment & Plan Assessment & Plan (1) Facial edema: Code(s): R60.0 - Localized edema Plan: DDx's: Gingivitis vs Tooth Decay Ordered PCN and advised to Call her Dentist [facility] for an evaluation. NSAIDs for pain relief. Medications: New 2 amoxicillin 500 mg PO Q12H 10 days 20 caps 0RF R60.0 - Localized edema Coding Level of Care Code Est Pt Level 4 (64074) Diagnoses Facial edema R60.0 Time Spent (min) 20
[2024-10-11 10:35] VITALS: BP 138/80; PULSE 78; O2SAT 98
--- OUTSIDE RECORDS SUMMARY | 2024-10-11 11:12 | XMS_ITS | Continuity of Care Document ---
Author Name [facility] Organization [facility] Care Team Providers Care Box Sealing Machine Catcher Name Role Phone [facility] Unavailable Unavailable Medications Combined list of outpatient medications from Department of Defense and Veterans Affairs facilities.Medications provided include 1) outpatient medications from the last 15 months, and 2) patient-reported medications. Medication Details Route Status Patient Instructions Prescription Expires Prescription Number Last Dispense Date Ordering Provider Order Date Order Qty Source AMLODIPINE BESYLATE (AMLODIPINE BESYLATE), 10 MG, TABLET, ORAL, [employer], 1000 ea. BOTTLE Active [id number] 4 2023 45 Pharmac y Data Transac tion Service Facilit y AMLODIPINE BESYLATE (AMLODIPINE BESYLATE), 10 MG, TABLET, ORAL, [employer], 1000 ea. BOTTLE Active [id number] 4 2023 45 Pharmac y Data Transac tion Service Facilit y Social History Combined list of available smoking, tobacco, and other social history from Department of Defense and Veterans Affairs facilities. Social History Type Response Date Comment Sourc e This section is an empty social history section. [facility]
== END 2024-10-11 10:59 | disposition home or self-care (01) ==
PROVIDERS: PCP Internal Medicine; Visit Provider Nurse Practitioner Family
DX: R60.0 Localized edema (principal)

== ENCOUNTER → 2024-10-11 10:31 | Outpatient (BNVA) | payer MEDICARE, OTHER, SELFPAY | PROVIDERS: PCP Internal Medicine; Visit Provider Nurse Practitioner Family | DX: R60.0 Localized edema (principal) | CPT/HCPCS: 99212 ==

== ENCOUNTER 2024-10-15 10:51 | Outpatient (AMB) | payer MEDICARE, OTHER, SELFPAY ==
--- NOTE | 2024-10-15 10:53 | A.OFFVIS_ITS ---
Vital Signs 10/15/24 11:00 Height 5 ft 1 in Weight 116 lb 6 oz BMI 22.0 BP 127/58 L Blood Pressure Location Lt brachial Position Sitting Pulse 75 Intake Visit Reasons: 6 wk follow up S/P bronchoscopy ( Dr Trejo) Intake Note: Patient is seen in office for 6 months follow up visit, post bronchoscopy. 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 Pathology revealed atypical adenomatous hyperplasia, focal with no evidence of malignancy. She returns today following a CT lung screening performed on 09/14/2024. This revealed lung rads 2-benign appearance: Continued annual screening with low- dose chest CT in 12 months. She reports feeling much improved with no chest pain. She still gets tired easily but denies being short of breath. [facility] Medical History Facial edema Former cigarette smoker Dyslipidemia Arthritis Mild emphysema Impaired fasting glucose Carotid stenosis, bilateral Essential hypertension Uncontrolled hypertension Emphysema lung Osteopenia of left femoral neck Insomnia Lumbar degenerative disc disease Surgical History S/P partial lobectomy of lung Hx of colonoscopy History of tonsillectomy History of tubal ligation Family History Father HTN (hypertension) Cancer of prostate Hyperlipidemia Mother HTN (hypertension) Colon cancer Breast cancer Lung cancer Maternal Grandmother No problems noted. Maternal Grandfather Lung cancer Paternal Grandmother No problems noted. Paternal Grandfather Colon cancer Brother No problems noted. Brother No problems noted. Sister No problems noted. Son No problems noted. Social History Household Members: Spouse Housing: House Are you a primary cardiac care unit nurse to a significant other at home: No Do you presently have visiting nurse or other home services: No Alcohol intake: current Alcohol intake frequency: a few times a month Patient Tobacco Use Status: Former Tobacco user Tobacco use type: Cigarette Cigarette Packs Per Day: 1.5 Cigarettes Per Day: 10 Years Smoked: 40 years e-Cigarette/Vaping Use: Never Used Second Hand Smoke Exposure: No service: No Current occupational status: retired Cognitive needs: No Hearing needs: No Vision needs: Yes Review of Systems Const All systems reviewed & are unremarkable except as noted in HPI and below Physical Exam Const General: no acute distress Nutritional Appearance: well nourished Orientation/consciousness: patient oriented x3 Limitations: no limitations Chest Other: Right Chest wounds are clean, dry, and intact without redness or discharge. Resp Effort & Inspection: normal respiratory effort Auscultation: clear to auscultation bilaterally Skin Other: Warm, dry, no rash Neuro General: patient oriented x3 Assessment & Plan Assessment & Plan (1) Abnormal CT lung screening: Code(s): R91.8 - Other nonspecific abnormal finding of lung field Category: Surgical Plan 68-year-old female patient status post VATS, lung biopsy. She will continue her yearly lung screening and follow up with thoracic surgery as needed. Coding Level of Care Code Est Pt Level 3 (88294) Diagnoses Abnormal CT lung screening R91.8
[2024-10-15 11:00] VITALS: BP 127/58; PULSE 75; BMI 22.0
--- OUTSIDE RECORDS SUMMARY | 2024-10-15 11:22 | XMS_ITS | Continuity of Care Document ---
Author Name [facility] Organization [facility] Care Team Providers Care Truss Puller Helper Name Role Phone [facility] Unavailable Unavailable Social History Combined list of available smoking, tobacco, and other social history from Department of Defense and Veterans Affairs facilities. Social History Type Response Date Comment Sourc e This section is an empty social history section. [facility]D
--- OUTSIDE RECORDS SUMMARY | 2024-10-15 11:22 | XMS_ITS | Clinical Summary ---
Author Organization [facility] Address [address] [place] [address] Phone Care Team Providers Care Rubber Stamps And Dies Supervisor Name Role Phone Tenisha Cutler MD Primary Care Provider [phone] Encounters Date Type Department Care Team Description 09/29/2024 2:06 PM EDT - 09/29/2024 11:59 PM EDT [facility] [address] [phone] Encounter for screening mammogram for breast cancer Discharge Disposition: Home or Self Care from Last 3 Months Family History Medical History Relation Name Comments Breast cancer Mother Relation Name Status Comments Mother Social History Tobacco Use Types Packs/Day Years Used Date Smoking Tobacco: Never Assessed Comments No Sex and Gender Information Value Date Recorded Sex Assigned at Not on file Legal Sex Female 12:30 PM EST Gender Identity Not on file Sexual Orientation Not on file Obstetrics History Para Term AB IAB SAB Ectopic Multiple Livin g Live Births 1 Last Filed Vital Signs Vital Sign Reading Time Taken Comments Blood Pressure - - Pulse - - Temperature - - Respiratory Rate - - Oxygen Saturation - - Inhaled Oxygen Concentration - - Weight 49.9 kg (110 lb) 09/29/2024 2:54 PM EDT Height 152.4 cm (5') 09/29/2024 2:54 PM EDT Body Mass Index 21.48 09/29/2024 2:54 PM EDT Plan of Treatment Upcoming Encounters Date Type Department Care Team (Late st Contact Info) Description 11/05/2024 10:00 AM EDT Appointment [facility] [place] [address] [place] [phone] Health Maintenance Due Date Last Done Comments DTaP,Tdap,and Td Vaccines (1 - Tdap) 1974 Colorectal Cancer Screening: Colonoscopy 04/30/2022 Depression Screening 04/30/2022 Hepatitis C Screening 04/30/2022 Medicare Annual Wellness Visit 04/30/2022 Social Influencers of Health Screening 04/30/2022 Falls Risk Assessment 2022 COVID-19 Vaccine ( season) 2024 04/05/2021, 10/03/2020, 09/11/2020 Influenza Vaccine (Season Ended) 2025 04/18/2021, 02/09/2020, 04/01/2019, Additional history exists Breast Cancer Screening 09/29/2026 09/30/19, 09/08/2023, 09/09/2022, Additional history exists Osteoporosis Screening (Bone Density Screening) 03/18/2029 03/18/2019 RSV Immunization Adult Patients (1 - 1-dose 75+ series) 2032 Zoster Vaccines Completed 08/15/2020, 06/16/2020 Pneumococcal Vaccine: 50+ Years Completed 06/11/2023, 12/11/2020 HIB Vaccines Aged Out No longer eligi ble based on patient's age to complete this topic HPV Vaccines Aged Out No longer eligi ble based on patient's age to complete this topic Hepatitis A Vaccines Aged Out No long er eligible based on patient's age to complete this topic Hepatitis B Vaccines Aged Out No long er eligible based on patient's age to complete this topic IPV Vaccines Aged Out No longer eligi ble based on patient's age to complete this topic MMR Vaccines Aged Out No longer eligi ble based on patient's age to complete this topic Meningococcal ACWY Vaccine Aged Out N o longer eligible based on patient's age to complete this topic Meningococcal B Vaccine Aged Out No l onger eligible based on patient's age to complete this topic RSV Immunization Patients Under 20 months Aged Out No longer eligible based on patient's age to complete this topic Varicella Vaccines Aged Out No longer eligible based on patient's age to complete this topic Procedures Procedure Name Priority Date/Time Associated Diagnosis Comments MG MAMMO DIGITAL SCREENING W LIBORIO BILAT Routine 09/29/2024 3:04 PM EDT Encounter for screening mammogram for breast cancer [facility] DEXA AXIAL SKELETON Routine 03/18/2019 3:25 PM EDT Encounter for screening for osteoporosis from Last 3 Months or Most Recently Relevant to Health Maintenance Results * MG Mammo Digital Screening w Liborio bilat (09/29/2024 3:04 PM EDT) Anatomical Region Laterality Modality Breast Bilateral Mammography 09/29/2024 4:20 PM EDT Impressions 09/29/2024 4:21 PM EDT No evidence of breast malignancy. BI-RADS CATEGORY: 1 - NEGATIVE RECOMMENDATION: Screening bilateral mammogram is recommended in 1 year. Mammo Location: [facility], [address] [place] [address], [facility], . -------- FINAL REPORT -------- Dictated By: Vani Rivera Dictated Date: 09/29/2024 16:20 ET Assigned Physician: Vani Rivera Reviewed and Electronically Signed By: Vani Rivera Signed Date: 09/29/2024 16:21 ET Workstation ID: [id number] Transcribed By: Self Edit Transcribed Date: 09/29/2024 16:20 ET Narrative 09/29/2024 4:21 PM EDT CLINICAL: 68 years old, Female, routine annual exam. COMPARISON: 09/08/2023, 09/05/2022, 08/29/2021, 08/09/2020 and 03/17/2019 ?? TECHNIQUE: Bilateral MLO and CC views were obtained digitally with 3-D mammogram (digital breast tomosynthesis). Computer-aided detection was utilized in evaluation of this exam (CAD). FINDINGS: There is no evidence of suspicious mass or architectural distortion. ??No worrisome calcifications are evident. ??There has been no significant change from prior exam(s). ?? BREAST DENSITY: B - There are scattered areas of fibroglandular density. Procedure Note Vani Rivera MD - 09/29/2024 CLINICAL: 68 years old, Female, routine annual exam. COMPARISON: 09/08/2023, 09/05/2022, 08/29/2021, 08/09/2020 and 03/17/2019 TECHNIQUE: Bilateral MLO and CC views were obtained digitally with 3-Dmammogram (digital breast tomosynthesis). Computer-aided detection wasutilized in evaluation of this exam (CAD). FINDINGS: There is no evidence of suspicious mass or architectural distortion. Noworrisome calcifications are evident. There has been no significantchange from prior exam(s). BREAST DENSITY: B - There are scattered areas of fibroglandular density. IMPRESSION: No evidence of breast malignancy. BI-RADS CATEGORY: 1 - NEGATIVE RECOMMENDATION: Screening bilateral mammogram is recommended in 1 year. Mammo Location: [facility], [address] [place] [address], [id number], . -------- FINAL REPORT -------- Dictated By: Vani Rivera Dictated Date: 09/29/2024 16:20 ET Assigned Physician: Vani Rivera Reviewed and Electronically Signed By: Vani Rivera Signed Date: 09/29/2024 16:21 ET Workstation ID: [id number] Transcribed By: Self Edit Transcribed Date: 09/29/2024 16:20 ET us Self Referral Sppl IMG BI PROCEDURES Final Resul t * SARAH DEXA AXIAL SKELETON (03/18/2019 3:25 PM EDT) Anatomical Region Laterality Modality Mammography 03/17/2019 11:0 0 AM EDT Narrative 03/18/2019 3:25 PM EDT [facility] Diagnostic Imaging Department [address] [place] [address] [id number] Patient: ??ANGELA SORIANO ?/Age/Sex: 1955 - 63 - F Unit#: ??[id number] ? Location/Status: ??SPDIMAM/REG CLI ? Mnemonic/Ordering Site: ??MAMDEXAAX/SPMAM Ordering Physician: ??TENISHA CUTLER MD Sarah Dexa Axial Skeleton - 03/17/19 - 111 History: Low estrogen state due to menopause. Vitamin D deficiency. Current smoker. Comparison: 02/20/17 Findings: Bone densitometry is performed utilizing dual energy x-ray absorptiometry (DXA) in the [employer] unit. The lumbar spine and proximal femora are evaluated in the AP projection. The FRAX questionaire was completed. The results indicate low bone mass (osteopenia), with a left femoral neck T- score -2.0. There has been no statistically significant change. ??The detailed DEXA report will be mailed to the referring physician's office. DualFemur FRAX: 10-year Probability of Fracture: Major Osteoporotic 15.9% ??Hip 1.6%. IMPRESSION: Osteopenia. [id number] Dictating Physician: ??ELENA MONTAGUE MD Electronically Signed by: ??ELENA MONTAGUE MD Dic Date/Time: ??03/18/19 1524 Sign date/Time: ??03/18/19 1525 Procedure Note Elena Montague - 05/21/2022 [facility] Diagnostic Imaging Department [address] [place], [place] [id number] Patient: ANGELA SORIANO Anali /Age/Sex: 1955 - 63 - F Unit#: [id number] Location/Status: SPDIMAM/REG CLI Mnemonic/Ordering Site: MAMDEXAAX/SPMAM Ordering Physician: TENISHA CUTLER MD [facility] Dexa Axial Skeleton - 03/17/19 - 111 History: Low estrogen state due to menopause. Vitamin D deficiency.Current smoker. Comparison: 02/20/17 Findings: Bone densitometry is performed utilizing dual energy x-ray absorptiometry(DXA) in the [employer] unit. The lumbar spine and proximal femora areevaluated in the AP projection. The FRAX questionaire was completed. The results indicate low bone mass (osteopenia), with a left femoral neckT- score -2.0. There has been no statistically significant change. Thedetailed DEXA report will be mailed to the referring physician's office. DualFemur FRAX: 10-year Probability of Fracture: Major Osteoporotic 15.9%Hip 1.6%. IMPRESSION: Osteopenia. [id number] Dictating Physician: ELENA MONTAGUE MD Electronically Signed by: ELENA MONTAGUE MD Dic Date/Time: 03/18/19 1524 Sign date/Time: 03/18/19 152 us Tenisha Cutler MD IMG BI PROCEDURES Final Res ult from Last 3 Months or Most Recently Relevant to Health Maintenance [place] [address] [place] [address] MEDICARE Care Teams Rubber Stamps And Dies Supervisor Relationship Specialty Start Date End Date Tenisha Cutler MD [address] [place] [address] PCP - General Internal Medicine 09/29/24
== END 2024-10-15 11:21 | disposition home or self-care (01) ==
PROVIDERS: PCP Internal Medicine; Visit Provider Surgery
DX: R91.8 Other nonspecific abnormal finding of lung field (principal)
CPT/HCPCS: 99213

== ENCOUNTER → 2024-10-15 10:51 | Outpatient (BNVA) | payer MEDICARE, OTHER, SELFPAY | PROVIDERS: PCP Internal Medicine; Visit Provider Surgery | DX: R91.8 Other nonspecific abnormal finding of lung field (principal) | CPT/HCPCS: 99212 ==

== ENCOUNTER 2024-12-08 11:24 | Outpatient (AMB) | payer MEDICARE, OTHER, SELFPAY ==
[2024-12-08 11:42] VITALS: BP 132/60; PULSE 60; RESP 15; TEMP 36.8; O2SAT 98; BMI 21.2
--- NOTE | 2024-12-08 11:42 | A.OFFPC_ITS ---
Vital Signs 12/08/24 11:42 Height 5 ft 1 in Weight 112 lb BMI 21.2 BP 132/60 Blood Pressure Location Rt brachial Position Sitting Respiration 15 Pulse 60 Pulse Source Pulse Oximeter Temp 98.2 F Temp Source Oral Pulse Oximetry (%) 98 Oxygen Delivery Method Room Air Intake Visit Reasons: upper back pain/b/p check Intake Note: Pt is here today c/o upper back pain upon movement with arms/ b/p check Allergies celecoxib Adverse Reaction (Mild, Verified 12/08/24 12:21) dry mouth , feels weak /sluggish Medication List - Last Reconciled 12/08/24 by Tenisha Neely MD acetaminophen 500 mg PO Q6-8H PRN amlodipine 5 mg PO DAILY ascorbic acid (vitamin C) 500 mg PO DAILY aspirin (Adult Aspirin Regimen) 81 mg PO DAILY atorvastatin 20 mg PO BEDTIME cholecalciferol (vitamin D3) 100 mcg PO DAILY diclofenac sodium 1% (Arthritis Pain (diclofenac)) 2 grams topical DAILY PRN lisinopril 20 mg PO DAILY metoprolol succinate ER 25 mg PO BEDTIME sennosides (Senokot) 8.6 mg PO DAILY PRN Tobacco use date assessed: 12/08/24 Fall risk assessment: 1 Fall in past year Last assessed Fall Risk: 12/08/24 Dental Screening Dental Screen Date: 12/08/24 Did you have a dental visit in the last 12 months?: Yes Did you have a dental problem in the last 6 months where you did not have access to dental care?: No Was dental information given to patient?: Patient has dentist HPI upper back pain/b/p check HPI Details 69-year-old lady here today complaining of aching pain in her scapular area sometimes going across the ribcage extending to the chest, worse when she bends and does dishes or stops vegetables or do gardening. This has been present now for the last year and seems to be getting worse. Denies any accompanying shortness of breath, no cough, no history of any falls . She has been applying diclofenac gel which affords temporary relief. She also had a recent bone density scan done at [facility] which showed presence of osteoporosis now in her left femoral neck osteopenia in her AP spine,. Currently taking vitamin-D 3 supplements, stays active, no history of fractures in the past. She does not want to take Fosamax, would like to discuss other treatment options Has hypertension currently controlled on amlodipine and lisinopril, and fast dyslipidemia currently on atorvastatin 20 mg daily, due for recheck of her fasting lipids. She was noted to be anemic on last labs done a year ago. Denies any unusual bleeding, no blood in stool. She had a normal colonoscopy done by Dr. Vazquez a year ago. [facility] Medical History Osteoporosis Anemia Facial edema Former cigarette smoker Dyslipidemia Arthritis Mild emphysema Impaired fasting glucose Carotid stenosis, bilateral Essential hypertension Uncontrolled hypertension Emphysema lung Osteopenia of left femoral neck Insomnia Lumbar degenerative disc disease Surgical History S/P partial lobectomy of lung Hx of colonoscopy History of tonsillectomy History of tubal ligation Family History Father HTN (hypertension) Cancer of prostate Hyperlipidemia Mother HTN (hypertension) Colon cancer Breast cancer Lung cancer Maternal Grandmother No problems noted. Maternal Grandfather Lung cancer Paternal Grandmother No problems noted. Paternal Grandfather Colon cancer Brother No problems noted. Brother No problems noted. Sister No problems noted. Son No problems noted. Social History Household Members: Spouse Housing: House Are you a primary congregational care pastor to a significant other at home: No Do you presently have visiting nurse or other home services: No Alcohol intake: current Alcohol intake frequency: a few times a month Patient Tobacco Use Status: Former Tobacco user Tobacco use type: Cigarette Cigarette Packs Per Day: 1.5 Cigarettes Per Day: 10 Years Smoked: 40 years Packs Per Year: 0 Packs per year/per ci.00 e-Cigarette/Vaping Use: Never Used Second Hand Smoke Exposure: No service: No Current occupational status: retired Cognitive needs: No Hearing needs: No Vision needs: Yes Questionnaire PHQ-9 Over the last 2 weeks, how often have you been bothered by any of the following problems? Depression Screening Interpretation: Negative Depression Screening Done: Yes Source: Developed by Drs. Bertram Garzon, Vira B.Josiah Ashley and colleagues, with an educational fam from [employer]. Thrive Questionnaire Date Thrive assessed: 12/07/24 I am a: Patient What is your living situation today?: I have a steady place to live Within the past 12 months, did the food you bought not last and you didn't have the money to get more?: Never true Within the past 12 months, did you worry whether your food would run out before you got money to buy more?: Never true Do you have trouble paying for medicines?: No Do you have trouble getting transportation to medical appointments?: No Do you have trouble paying your heating and electricity bill?: No Do you have trouble taking care of your child, family member or friend?: No Do you have trouble with day-to-day activities such as bathing, preparing meals, shopping, managing finances, etc.?: No Are you currently unemployed and looking for a job?: No Are you interested in more education?: No Please select the resources that you would like help with: None Currently or been in a relationship where the following occur: No concerns reported THRIVE Score: 0 AUDIT C Alcohol Use Questionnaire (AUDIT-C) 1. How often do you have a drink containing alcohol?: 2-4 times a month Total Score: 2 SUKHI-7 AMB Questionnaire SUKHI-7 Date SUKHI - 7 assessed: 07/14/23 Feeling nervous, anxious, or on edge: 1 = Several days Not being able to stop or control worryin = Not at all Worrying too much about different things: 1 = Several days Trouble relaxin = Several days Being so restless that it is hard to sit still: 0 = Not at all Becoming easily annoyed or irritable: 1 = Several days Feeling afraid as if something awful might happen: 1 = Several days Total SUKHI-7 score (0-4 normal; 5-9 mild; 10-14 moderate; 15-21 severe): 5 Source: Developed by Drs. Bertram Garzon, Josiah Valles and colleagues, with an educational fam from [employer]. Review of Systems Const All systems reviewed & are unremarkable except as noted in HPI and below Physical exam (Primary Care) Vital Signs: Last Vital Signs Temp 98.2 F 12/08/24 11:42 Pulse 60 12/08/24 11:42 Resp 15 12/08/24 11:42 BP 132/60 12/08/24 11:42 Pulse Ox 98 12/08/24 11:42 Oxygen Delivery Method Room Air 12/08/24 11:42 BMI result Body Mass Index 21.2 Tobacco/Smoking Status: Tobacco use Status Tobacco use date assessed 12/08/24 12/08/24 11:44 Patient Tobacco Use Status Former Tobacco user 12/08/24 11:44 Tobacco use type Cigarette 12/08/24 11:44 e-Cigarette/Vaping Use Never Used 12/08/24 11:44 Are you ready to quit: No Tobacco cessation counseling provided: Yes Items discussed: Other Depression Screening Interpretation: Negative Thrive Assessment: Date of Thrive Assessment Date Thrive assessed 12/07/24 12/08/24 11:44 Currently or been in a relationship where the following occur: No concerns reported Const General: cooperative, comfortable and no acute distress Orientation/consciousness: patient oriented x3 HENMT Ears: external ears normal General nose exam: Normal external nose present Mouth: Normal oral and palatal mucosa present, oropharynx normal and moist mucous membranes Eyes General: appearance normal, both eyes and all related structures Neck Neck: Yes full ROM, Yes no lymphadenopathy and Yes supple Resp Effort & Inspection: normal respiratory effort and able to speak in complete sentences Auscultation: clear to auscultation bilaterally Cardio Rate: regular rate Rhythm: regular rhythm Heart sounds: S1 normal heart sound present and S2 normal heart sound present Bruits: carotid bruit on the left GI Inspection: Yes normal to inspection Palpation (GI): Soft to palpation, nontender and no masses Auscultation: normal bowel sounds General: Yes no CVA tenderness Back/Spine/Pelvis Back: no CVA tenderness and No back tenderness Thoracic/Lumbar Spine: thoracic and lumbar spine normal to inspection and thoraco-lumbar ROM normal Skin General skin exam: no rashes or lesions noted Neuro General: patient oriented x3, gait normal, tone normal, moves all extremities, Normal light touch and pain sensation and no focal motor deficits Cognition (Neuro): normal cognition Gait exam (Neuro): Normal gait present Motor exam (neuro): 5/5 motor strength present throughout Extrem General: Yes full ROM, Yes no joint enlargement, Yes no pedal edema and Yes normal gait Psych Appearance: grossly normal Mental Status: mental status grossly normal Speech and movement: Normal speech and movement present Affect: normal affect Attitude: cooperative Thought process: Normal thought process present Thought content: Normal thought content present Coding Level of Care Code Est Pt Level 4 (35397) Diagnoses Dorsalgia M54.9 Essential hypertension I10 Dyslipidemia E78.5 Anemia D64.9 Age-related osteoporosis without current pathological fracture M81.0 Osteoporosis type: age-related Presence of current pathological fracture: without current pathological fracture Assessment & Plan Assessment & Plan (1) Dorsalgia: Code(s): M54.9 - Dorsalgia, unspecified Plan: Ordered x-ray of thoracic spine. Referred for physical therapy (2) Essential hypertension: Code(s): I10 - Essential (primary) hypertension Category: Medical Plan: Blood pressure at goal of less than 130/80. Continue with amlodipine 5 mg daily and lisinopril 20 mg daily and metoprolol 25 mg at bedtime Reinforced importance of following a low sodium diet, getting regular exercise, and lowering stress levels. (3) Dyslipidemia: Code(s): E78.5 - Hyperlipidemia, unspecified Category: Medical Plan: Fasting lipid panel ordered today. Currently on atorvastatin 20 mg daily (4) Anemia: Code(s): D64.9 - Anemia, unspecified Category: Medical Plan: Ordered repeat CBC and iron profile (5) Osteoporosis: Code(s): M81.0 - Age-related osteoporosis without current pathological fracture Category: Medical Qualifiers: Osteoporosis type: age-related Presence of current pathological fracture: without current pathological fracture Qualified Code(s): M81.0 - Age- related osteoporosis without current pathological fracture Plan: Patient declined Fosamax. Currently unable to do much exercise due to pain in her mid back. But has been active prior to that. Advised to take vitamin-D 3 supplements at least 2000 units daily, last vitamin-D was within normal limits take adequate calcium from dietary sources. Referred to endocrine clinic, per patient request to discuss other treatment options for osteoporosis Orders: Orders Complete Blood Count Auto Diff Today D64.9 - Anemia, unspecified, E78.5 - Hyperlipidemia, unspecified, I10 - Essential (primary) hypertension Lipid Panel Today D64.9 - Anemia, unspecified, E78.5 - Hyperlipidemia, unspecified, I10 - Essential (primary) hypertension IRON PROFILE Today D64.9 - Anemia, unspecified, E78.5 - Hyperlipidemia, unspecified, I10 - Essential (primary) hypertension Vitamin D 25-OH Total Today D64.9 - Anemia, unspecified, E78.5 - Hyperlipidemia, unspecified, I10 - Essential (primary) hypertension PT Evaluation and Treatment Today M54.9 - Dorsalgia, unspecified XR thoracic spine 3V Today M54.9 - Dorsalgia, unspecified Alanine Aminotransferase Today D64.9 - Anemia, unspecified, E78.5 - Hyperlipidemia, unspecified, I10 - Essential (primary) hypertension Aspartate Amino Transferase Today D64.9 - Anemia, unspecified, E78.5 - Hyperlipidemia, unspecified, I10 - Essential (primary) hypertension Basic Metabolic Panel Fasting Today D64.9 - Anemia, unspecified, E78.5 - Hyperlipidemia, unspecified, I10 - Essential (primary) hypertension Referrals Endocrinology Referral M81.0 - Age-related osteoporosis without current pathological fracture
--- OUTSIDE RECORDS SUMMARY | 2024-12-08 12:34 | XMS_ITS | Continuity of Care Document ---
Author Name [facility] Organization [facility] Care Team Providers Care Corporate Human Resources Manager Name Role Phone [facility] Unavailable Unavailable Social History Combined list of available smoking, tobacco, and other social history from Department of Defense and Veterans Affairs facilities. Social History Type Response Date Comment Sourc e This section is an empty social history section. DoD
--- OUTSIDE RECORDS SUMMARY | 2024-12-08 12:35 | XMS_ITS | Clinical Summary ---
Author Organization [facility] Address [address] [place] [address] Phone Care Team Providers Care Gas Fitter Helper Name Role Phone Tenisha Neely MD Primary Care Provider Encounters Date Type Department Care Team Description 11/05/2024 9:40 AM EDT - 11/05/2024 11:59 PM EDT Hospital Encounter Bone Density - [place] [address] [place] [phone] Other specified disorders of bone density and structure, left thigh Discharge Disposition: Home or Self Care 09/29/2024 2:06 PM EDT - 09/29/2024 11:59 PM EDT [facility] [address] [phone] Encounter for screening mammogram for breast cancer [...] 09/29/2024 2:54 PM EDT Plan of Treatment Health Maintenance Due Date Last Done Comments DTaP,Tdap,and Td Vaccines (1 - Tdap) 1974 Colorectal Cancer Screening: Colonoscopy 04/30/2022 Depression Screening 04/30/2022 Hepatitis C Screening 04/30/2022 Medicare Annual Wellness Visit 04/30/2022 Social Influencers of Health Screening 04/30/2022 Falls Risk Assessment 2022 COVID-19 Vaccine ( season) 2024 04/05/2021, 10/03/2020, 09/11/2020 Influenza Vaccine (#1) 2025 , 02/09/2020, 04/01/2019, Additional history exists Breast Cancer Screening 09/29/2026 09/30/19, 09/08/2023, 09/09/2022, Additional history exists RSV Immunization Adult Patients (1 - 1-dose 75+ series) 2032 Osteoporosis Screening (Bone Density Screening) 11/05/2034 11/05/2024, 03/18/2019 Zoster Vaccines Completed 08/15/2020, 06/16/2020 Pneumococcal Vaccine: [...] Procedure Name Priority Date/Time Associated Diagnosis Comments BD BONE DENSITY DXA AXIAL SKELETON Routine 11/05/2024 10:24 AM EDT Other specified disorders of bone density and structure, left thigh MG MAMMO DIGITAL SCREENING W LIBORIO BILAT Routine 09/29/2024 3:04 PM EDT Encounter for screening mammogram for breast cancer from Last 3 Months Results * BD Bone Density DXA Axial Skeleton (11/05/2024 10:24 AM EDT) Anatomical Region Laterality Modality Wrist, Hip, L-spine Bone Densito metry 11/05/2024 1:42 PM EDT Impressions 11/05/2024 1:44 PM EDT Impression: Osteoporosis by WHO criteria. The [facility] Department of Internal Medicine recommends using National Osteoporosis Foundation (NOF) guidelines in treatment decisions related to osteoporosis. NOF guidelines suggest considering treatment for postmenopausal women and men aged 50 or older presenting with the following: History of hip or vertebral fracture. T-score = -2.5 (DXA) at the femoral neck, total hip, or spine, after appropriate evaluation to exclude secondary causes. Low bone mass (T-score between -1.0 and -2.5 at the femoral neck or spine) AND a 10-year probability of a hip fracture = 3% OR a 10-year probability of a major osteoporosis-related fracture = 20% based on the [place]-adapted WHO algorithm Please note that all treatment decisions require clinical judgment and consideration of individual patient factors, including patient preferences, co-morbidities, previous drug use, risk factors not captured in the FRAX model (e.g., frailty, falls, vitamin D deficiency, increased bone turnover, interval significant decline in bone density) and possible under- or over-estimation of fracture risk by FRAX. Optional alternative screening schedule based on karen Oglesby., [facility] June 20, 2011 for patients with osteopenia (based on hip BMD T-score) is as follows: * advanced osteopenia (T scores -2.00 to -2.49), BMD testing every year * moderate osteopenia (T scores -1.50 to -1.99), BMD testing every 5 years mild osteopenia or normal BMD (T scores -1.50 and higher), BMD testing every 15 years -------- FINAL REPORT -------- Dictated By: Gabriela Kincaid Dictated Date: 11/05/2024 13:42 ET Assigned Physician: Gabriela Kincaid Reviewed and Electronically Signed By: Gabriela Kincaid Signed Date: 11/05/2024 13:44 ET Workstation ID: [id number] Transcribed By: Self Edit Transcribed Date: 11/05/2024 13:42 ET Narrative 11/05/2024 1:44 PM EDT BONE DENSITY (DEXA) Lumbar Spine T-score is -1.6. (SD relative to 20-29 y/o adult) Z-score is 0.3. (SD relative to age matched peers) This is considered osteopenia by WHO criteria. Left Hip T-score is -2.6. Z-score is -1. This is considered osteoporosis by WHO criteria. Comparison exam(s): Not available. Confidence level is +/-95%. Procedure Note Gabriela Kincaid MD - 11/05/2024 BONE DENSITY (DEXA) Lumbar Spine T-score is -1.6. (SD relative to 20-29 y/o adult) Z-score is 0.3. (SD relative to age matched peers) This is considered osteopenia by WHO criteria. Left Hip T-score is -2.6. Z-score is -1. This is considered osteoporosis by WHO criteria. Comparison exam(s): Not available. Confidence level is +/-95%. IMPRESSION: Impression: Osteoporosis by WHO criteria. The [facility] Department of Internal Medicine recommendsusing National Osteoporosis Foundation (NOF) guidelines in treatmentdecisions related to osteoporosis. NOF guidelines suggest consideringtreatment for postmenopausal women and men aged 50 or older presentingwith the following: History of hip or vertebral fracture. T-score = -2.5 (DXA) at the femoral neck, total hip, or spine, afterappropriate evaluation to exclude secondary causes. Low bone mass (T-score between -1.0 and -2.5 at the femoral neck or spine)AND a 10-year probability of a hip fracture = 3% OR a 10-year probabilityof a major osteoporosis-related fracture = 20% based on the [place]-adapted WHOalgorithm Please note that all treatment decisions require clinical judgment andconsideration of individual patient factors, including patientpreferences, co-morbidities, previous drug use, risk factors not capturedin the FRAX model (e.g., frailty, falls, vitamin D deficiency, increasedbone turnover, interval significant decline in bone density) and possibleunder- or over-estimation of fracture risk by FRAX. Optional alternative screening schedule based on karen Oglesby., [facility] for patients with osteopenia (based on hip BMD T-score)is as follows: * advanced osteopenia (T scores -2.00 to -2.49), BMD testing every year * moderate osteopenia (T scores -1.50 to -1.99), BMD testing every 5years mild osteopenia or normal BMD (T scores -1.50 and higher), BMD testingevery 15 years -------- FINAL REPORT -------- Dictated By: Gabriela Kincaid Dictated Date: 11/05/2024 13:42 ET Assigned Physician: Gabriela Kincaid Reviewed and Electronically Signed By: Gabriela Kincaid Signed Date: 11/05/2024 13:44 ET Workstation ID: [id number] Transcribed By: Self Edit Transcribed Date: 11/05/2024 13:42 ET Tenisha Neely MD IM DXA PROCEDURES Final Re sult * MG Mammo Digital Screening w Liborio bilat (09/29/2024 3:04 PM EDT) Anatomical Region Laterality Modality Breast Bilateral Mammography 09/29/2024 4:20 PM EDT Impressions 09/29/2024 4:21 PM EDT No evidence of breast malignancy. BI-RADS CATEGORY: 1 - NEGATIVE RECOMMENDATION: Screening bilateral mammogram is recommended in 1 year. Mammo Location: [facility], [address] [place] [address], [id number], . -------- FINAL REPORT -------- Dictated By: Vani Rivera Dictated Date: 09/29/2024 16:20 ET Assigned Physician: Vani Rivera Reviewed and Electronically Signed By: Vani Rivera Signed Date: 09/29/2024 16:21 ET Workstation ID: [id number] Transcribed By: Self Edit Transcribed Date: 09/29/2024 [...] evidence of suspicious mass or architectural distortion. No worrisome calcifications are evident. There has been no significant change from prior exam(s). BREAST DENSITY: B - [...] year. Mammo Location: [facility], [address] [place] [address], [id number], . -------- FINAL REPORT -------- Dictated By: Vani Rivera Dictated Date: 09/29/2024 16:20 ET Assigned Physician: Vani Rivera Reviewed and Electronically Signed By: Vani Rivera Signed Date: 09/29/2024 16:21 ET Workstation ID: [id number] Transcribed By: Self Edit Transcribed Date: 09/29/2024 16:20 ET us Self Referral Sppl IMG BI PROCEDURES Final Resul t from Last 3 Months Insurance [facility] MEDICARE Care Teams Gas Fitter Helper Relationship Specialty Start Date End Date Tenisha Neely MD [address] [place] [address] PCP - General Internal Medicine 09/29/24
== END 2024-12-08 12:25 | disposition home or self-care (01) ==
LOC: HO.HMCC 11:24
PROVIDERS: PCP Internal Medicine; Visit Provider Internal Medicine
DX: M54.9 Dorsalgia, unspecified (principal); I10 Essential (primary) hypertension; E78.5 Hyperlipidemia, unspecified; D64.9 Anemia, unspecified; M81.0 Age-related osteoporosis without current pathological fracture

== ENCOUNTER → 2024-12-08 11:24 | Outpatient (BNVA) | payer MEDICARE, OTHER, SELFPAY | PROVIDERS: PCP Internal Medicine; Visit Provider Internal Medicine | DX: M54.9 Dorsalgia, unspecified (principal); I10 Essential (primary) hypertension; E78.5 Hyperlipidemia, unspecified; D64.9 Anemia, unspecified; M81.0 Age-related osteoporosis without current pathological fracture | CPT/HCPCS: 99212 ==

== ENCOUNTER 2024-12-10 10:17 | Outpatient (REF) | payer MEDICARE, OTHER, SELFPAY ==
--- NOTE | ~2024-12-10 | XR_ITS ---
EXAMINATION: XR THORACIC SPINE 2 VIEWS HISTORY: M54.9 - Dorsalgia, unspecified COMPARISON: Comparison is made with the prior examination dated 12/14/2021. FINDINGS: AP and lateral views of the thoracic spine are submitted. Osseous mineralization is normal. The vertebral bodies maintain normal height and alignment without evidence of fracture or subluxation. The intervertebral disc spaces are preserved. The visualized paraspinal soft tissues are unremarkable. XR/XR thoracic spine 2V IMPRESSION: Unremarkable examination of the thoracic spine. Electronically signed by: Bertram Aj MD 12/10/2024 10:38 AM EDT
--- OUTSIDE RECORDS SUMMARY | 2024-12-10 10:45 | XMS_ITS | Continuity of Care Document ---
Author Name [facility] Organization [facility] Care Team Providers Care Inside Sales Advisor Name Role Phone [facility] Unavailable Unavailable Social History Combined list of available smoking, tobacco, and other social history from Department of Defense and Veterans Affairs facilities. Social History Type Response Date Comment Sourc e This section is an empty social history section. DoD
--- OUTSIDE RECORDS SUMMARY | 2024-12-10 10:46 | XMS_ITS | Clinical Summary ---
Author Organization [facility] Address [address] [place] [address] Phone Care Team Providers Care Tube Bender Name Role Phone Tenisha Neely MD Primary Care Provider [phone] Encounters Date Type Department Care Team Description 11/05/2024 9:40 AM EDT - 11/05/2024 11:59 PM EDT Hospital Encounter Bone Density - [place] [address] [place] [phone] Other specified disorders of bone density and structure, left thigh Discharge Disposition: Home or Self Care 09/29/2024 2:06 PM EDT - 09/29/2024 11:59 PM EDT [facility] [address] [phone] Encounter for screening mammogram for breast cancer [...] EDT Impression: Osteoporosis by WHO criteria. The [facility] Department of Internal Medicine recommends using [...] alternative screening schedule based on karen Oglesby., [facility] June 20, 2011 for patients with osteopenia [...] Signed Date: 11/05/2024 13:44 ET Workstation ID: [id number] Transcribed By: Self Edit Transcribed Date: 11/05/2024 [...] IMPRESSION: Impression: Osteoporosis by WHO criteria. The [facility] Department of Internal Medicine recommendsusing National [...] alternative screening schedule based on karen Oglesby., [facility] for patients with osteopenia (based on [...] Signed Date: 11/05/2024 13:44 ET Workstation ID: [id number] Transcribed By: Self Edit Transcribed Date: 11/05/2024 [...] year. Mammo Location: [facility], [address] [place] [address], [id number], . -------- FINAL REPORT -------- Dictated By: Vani Rivera Dictated Date: 09/29/2024 16:20 ET Assigned Physician: Vani Rivera Reviewed and Electronically Signed By: Vani Rivera Signed Date: 09/29/2024 16:21 ET Workstation ID: [id number] Transcribed By: Self Edit Transcribed Date: 09/29/2024 [...] year. Mammo Location: [facility], [address] [place] [address], [id number], . -------- FINAL REPORT -------- Dictated By: Vani Rivera Dictated Date: 09/29/2024 16:20 ET Assigned Physician: Vani Rivera Reviewed and Electronically Signed By: Vani Rivera Signed Date: 09/29/2024 16:21 ET Workstation ID: [id number] Transcribed By: Self Edit Transcribed Date: 09/29/2024 16:20 ET us Self Referral Sppl IMG BI PROCEDURES Final Resul t from Last 3 Months Insurance [facility] MEDICARE Care Teams Tube Bender Relationship Specialty Start Date End Date Tenisha Neely MD [address] [place] [address] PCP - General Internal Medicine 09/29/24
[2024-12-10 13:40] LABS: MANUAL DIFF FLAG NO
[2024-12-10 14:10] LABS: Hematocrit 37.4 % (37.0-47.0); Hemoglobin 12.3 g/dl (12.0-16.0); Imm Gran Abs Auto 0.03 X10*3/uL (0.00-0.03); Imm Gran Pct Auto 0.3 % (0.0-0.4); Lymphocytes Absolute Auto 2.3 X10*3/uL (1.2-4.9); Mean Corpuscular HGB Conc 32.9 g/dl (31.0-35.0); Mean Corpuscular Hemoglobin 31.4 pg (27.0-33.0); Mean Corpuscular Volume 95.4 fL (80.0-98.0); NRBC Abs Auto 0.000 X10*3/uL (0.0-0.012); NRBC Pct Auto 0.0 /100WBC (0.0-0.2); Platelet Count 378 X10*3/uL (160-400); Red Blood Count 3.92 X10*6/uL (4.20-5.50); White Blood Count 9.3 X10*3/uL (4.8-10.8)
[2024-12-10 14:30] LABS: Alanine Aminotransferase 25 U/L (0-31); Anion Gap 10 (12-20); Aspartate Amino Transferase 27 U/L (5-31); Blood Urea Nitrogen 11 mg/dL (9-16); Calcium 9.1 mg/dL (8.4-10.2); Carbon Dioxide 26 mmol/L (22-29); Chloride 106 mmol/L (96-108); Cholesterol 156 mg/dL (<200); Estimated Glomerular Filt Rate > 60; HDL Cholesterol 45 mg/dL (>40); Iron 129 mcg/dL (30-160); Percent Iron Saturation 56 % (15-50); Potassium 4.2 mmol/L (3.3-5.1); Sodium 138 mmol/L (135-145); Total Iron Binding Capacity 230 mcg/dL (228-428); Triglycerides 173 mg/dL (<150); Unsaturated Iron Binding 101 ug/dL
== END 2024-12-10 10:18 | disposition home or self-care (01) ==
LOC: HO.HMGCX 10:17
PROVIDERS: PCP Internal Medicine; Visit Provider Internal Medicine
DX: I10 Essential (primary) hypertension (principal); E78.5 Hyperlipidemia, unspecified; D64.9 Anemia, unspecified; M54.9 Dorsalgia, unspecified
CPT/HCPCS: 36415; 72070; 80048; 80061; 82306; 83540; 84450; 84460; 85025

== ENCOUNTER → 2024-12-10 10:28 | Outpatient (BNV) | payer MEDICARE, OTHER, SELFPAY | PROVIDERS: PCP Internal Medicine; Visit Provider Radiology Diagnostic Radiology | DX: M54.9 Dorsalgia, unspecified (principal) | CPT/HCPCS: 72070 ==

== ENCOUNTER 2025-01-25 10:50 | Outpatient (AMB) | payer MEDICARE, OTHER, SELFPAY ==
--- NOTE | 2025-01-25 10:51 | MHC.OFFVIS ---
Vital Signs 01/25/25 10:56 Height 5 ft 1.26 in Weight 111 lb 8.862 oz BMI 20.9 BP 130/62 Blood Pressure Location Lt brachial Position Sitting Pulse 69 Pulse Source Pulse Oximeter Pulse Oximetry (%) 99 Oxygen Delivery Method Room Air Intake Visit Reasons: Age-related osteoporosis without current patholog Intake Note: New present today for Age-related Osteoporosis. Assistant Operator Required: No Accompanied by: Self / Same As Patient Allergies celecoxib Adverse Reaction (Mild, Verified 01/25/25 10:57) dry mouth , feels weak /sluggish Medication List - Last Reconciled 01/25/25 by Bertram Hilton MD acetaminophen 500 mg PO Q6-8H PRN amlodipine 5 mg PO DAILY ascorbic acid (vitamin C) 500 mg PO DAILY aspirin (Adult Aspirin Regimen) 81 mg PO DAILY atorvastatin 20 mg PO BEDTIME cholecalciferol (vitamin D3) 100 mcg PO DAILY diclofenac sodium 1% (Arthritis Pain (diclofenac)) 2 grams topical DAILY PRN lisinopril 20 mg PO DAILY metoprolol succinate ER 25 mg PO BEDTIME sennosides (Senokot) 8.6 mg PO DAILY PRN HPI Comments Details: 69 YO Female is seen in consultation at the request of PCP for Osteoporosis. First diagnosed in osteoporosis on DEXA . Not Received treatment in the past . No history of pathologic fracture or ONJ. Has several servings of dietary calcium per day in the form of cheese, broccoli, cereal with milk . Not Takes Calcium supplement. Takes 1000 IU of Vitamin D daily. Denies ever using PPI, anticoagulant, antiepileptic or glucocorticoid medication. 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 UTD on dental cleanings and sees dentist every 6 months. planned upcoming dental work or extractions in future . Smoke 5 cigs/day . No heavy ETOH abuse DXA dated 11/05/24: T-score of-2.6 in the left hip Labs: The patient is a 69-year-old female presenting with osteoporosis management. She was recently diagnosed with osteoporosis following a bone scan, which revealed a T-score of -2.6, indicating osteoporosis in the left hip. Previously, she had been diagnosed with osteopenia a year prior, but no treatment beyond calcium and vitamin D supplementation was initiated. The patient denies any history of fractures in the hip, spine, or forearm. She has a family history of osteoporosis and rheumatoid arthritis, with her mother having had rheumatoid arthritis and her grandmother having osteoporosis without fractures. 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 She is a current smoker, smoking 5 to 10 cigarettes per day, and has attempted to quit in the past. In terms of lifestyle, the patient does not engage in regular weight-bearing exercises but has previously participated in horseback riding and lifting saddles. 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 [facility] Medical History Osteoporosis Anemia Facial edema Former cigarette smoker Dyslipidemia Arthritis Mild emphysema Impaired fasting glucose Carotid stenosis, bilateral Essential hypertension Uncontrolled hypertension Emphysema lung Osteopenia of left femoral neck Insomnia Lumbar degenerative disc disease Surgical History S/P partial lobectomy of lung Hx of colonoscopy History of tonsillectomy History of tubal ligation Family History Father HTN (hypertension) Cancer of prostate Hyperlipidemia Mother HTN (hypertension) Colon cancer Breast cancer Lung cancer Maternal Grandmother No problems noted. Maternal Grandfather Lung cancer Paternal Grandmother No problems noted. Paternal Grandfather Colon cancer Brother No problems noted. Brother No problems noted. Sister No problems noted. Son No problems noted. Social History Household Members: Spouse Housing: House Are you a primary daycare worker to a significant other at home: No Do you presently have visiting nurse or other home services: No Alcohol intake: current Alcohol intake frequency: a few times a month Patient Tobacco Use Status: Former Tobacco user Tobacco use type: Cigarette Cigarette Packs Per Day: 1.5 Cigarettes Per Day: 10 Years Smoked: 40 years e-Cigarette/Vaping Use: Never Used Second Hand Smoke Exposure: No service: No Current occupational status: retired Cognitive needs: No Hearing needs: No Vision needs: Yes Physical Exam Vital Signs: Last Vital Signs Pulse 69 01/25/25 10:56 BP 130/62 01/25/25 10:56 Pulse Ox 99 01/25/25 10:56 Oxygen Delivery Method Room Air 01/25/25 10:56 BMI result Body Mass Index 20.9 There are no Cushingoid features. Absence of blue sclera. Absence of kyphosis. Thyroid gland is of nl size and weighs 15 gms. There are no thyroid nodules palpated. Lungs CTA. Heart S1 S2 Reg R/R Abdominal exam benign. Muscle strength 5/5 . Examination of spine reveals absence of tenderness on palpation Assessment & Plan Assessment & Plan (1) Osteoporosis: Code(s): M81.0 - Age-related osteoporosis without current pathological fracture Category: Medical Qualifiers: Osteoporosis type: age-related Presence of current pathological fracture: without current pathological fracture Qualified Code(s): M81.0 - Age-related osteoporosis without current pathological fracture Plan: This 69-year-old white female with a history of osteoporosis. Partial secondary workup has been performed . Plan is to complete the secondary workup by checking a phosphorus level, urine immunofixation, 24 hour urine for calcium and creatinine. Will ensure 1200 mg of calcium daily as well as continued vitamin-D supplementation. Assuming secondary workup was negative could consider use of an anti resorptive agent like oral alendronate versus observation with non pharmacologic therapy and repeat bone density 1. Osteoporosis The patient has been diagnosed with osteoporosis, with a T-score of -2.6 in the left hip. The plan includes ensuring adequate calcium and vitamin D intake, with a total of 1200 mg of calcium daily, primarily from dietary sources, and 1000 IU of vitamin D. A secondary workup is planned to rule out other conditions such as multiple myeloma. The patient is advised to engage in weight-bearing exercises and to consider smoking cessation to improve bone density. Follow-up is scheduled in four months to reassess the condition and consider pharmacologic therapy if necessary. During the visit, I discussed the diagnosis of osteoporosis with the patient, explaining the significance of her T-score and the importance of calcium and vitamin D supplementation. We reviewed the potential need for pharmacologic therapy in the future, considering her family history and current lifestyle factors. I emphasized the benefits of smoking cessation and weight-bearing exercises in managing osteoporosis. We also discussed the secondary workup to rule out other conditions like multiple myeloma. I provided information on resources for further reading and scheduled a follow-up in four months to reassess her condition and treatment plan. - Take 1200 mg of calcium daily, primarily from food sources, and supplement with calcium citrate if needed. - Continue taking 1000 IU of vitamin D daily. - Engage in weight-bearing exercises regularly. - Attempt to quit smoking to improve bone health. - Follow up in four months for reassessment and potential treatment adjustments. The patient had an opportunity to ask questions regarding treatment plan. The patient expressed understanding and agreement with the above treatment plan. Patient was informed and verbally consented to the use of an ambient scribe for clinic note documentation during this visit. Orders: Orders Phosphorus Today M81.0 - Age-related osteoporosis without current pathological fracture Immunofixation, Random Urine Today M81.0 - Age-related osteoporosis without current pathological fracture Calcium, 24 Hr Ur 2 Months M81.0 - Age-related osteoporosis without current pathological fracture Creatinine, 24 Hr Group 2 Months M81.0 - Age-related osteoporosis without current pathological fracture Coding Level of Care Code New Pt Level 4 (72563) Diagnoses Age-related osteoporosis without current pathological fracture M81.0 Osteoporosis type: age-related Presence of current pathological fracture: without current pathological fracture
[2025-01-25 10:56] VITALS: BP 130/62; PULSE 69; O2SAT 99; BMI 20.9
--- OUTSIDE RECORDS SUMMARY | 2025-01-25 11:39 | XMS_ITS | Continuity of Care Document ---
Author Name [facility] Organization [facility] Care Team Providers Care Database Report Writer Name Role Phone [facility] Unavailable Unavailable Social History Combined list of available smoking, tobacco, and other social history from Department of Defense and Veterans Affairs facilities. Social History Type Response Date Comment Sourc e This section is an empty social history section. [facility]
--- OUTSIDE RECORDS SUMMARY | 2025-01-25 11:41 | XMS_ITS | Clinical Summary ---
Author Organization [facility] Address [address] [place] [address] Phone Care Team Providers Care Neon Technician Name Role Phone Tenisha Neely MD Primary Care Provider Encounters Date Type Department Care Team Description 11/05/2024 9:40 AM EDT - 11/05/2024 11:59 PM EDT Hospital Encounter Bone Density - [facility] [address] [place] [id number] Other specified disorders of bone density and structure, left thigh Discharge Disposition: Home or Self Care from [...] Tdap) 1974 Colorectal Cancer Screening: Colonoscopy 04/30/2022 Hepatitis C Screening 04/30/2022 Medicare Annual Wellness Visit 04/30/2022 Social Influencers of Health Screening 04/30/2022 Falls Risk Assessment 2022 COVID-19 Vaccine ( season) 2024 04/05/2021, 10/03/2020, 09/11/2020 Depression Screening 06/02/2024 Influenza Vaccine (#1) 2025 , 02/09/2020, 04/01/2019, [...] for breast cancer from Last 3 Months or Most Recently Relevant to Health Maintenance Results * BD Bone Density DXA Axial Skeleton (11/05/2024 10:24 AM EDT) Anatomical Region Laterality Modality Wrist, Hip, L-spine Bone Densito metry 11/05/2024 1:42 PM EDT Impressions 11/05/2024 1:44 PM EDT Impression: Osteoporosis by WHO criteria. The [facility] Department of Internal Medicine recommends using National [...] alternative screening schedule based on karen Oglesby., [facility] [place] June 20, 2011 for patients with osteopenia [...] Signed Date: 11/05/2024 13:44 ET Workstation ID: [id number] Transcribed By: Self Edit Transcribed Date: 11/05/2024 [...] IMPRESSION: Impression: Osteoporosis by WHO criteria. The [facility] Department of Internal Medicine recommendsusing National Osteoporosis [...] alternative screening schedule based on karen Oglesby., NEJMJanuary 2011 for patients with osteopenia (based on [...] Signed Date: 11/05/2024 13:44 ET Workstation ID: [id number] Transcribed By: Self Edit Transcribed Date: 11/05/2024 13:42 ET us Tenisha Neely MD IMG DXA PROCEDURES Final Re sult * MG Mammo Digital Screening w Liborio bilat (09/29/2024 3:04 PM EDT) Anatomical Region Laterality Modality Breast Bilateral Mammography 09/29/2024 4:20 PM EDT Impressions 09/29/2024 4:21 PM EDT No evidence of breast malignancy. BI-RADS CATEGORY: 1 - NEGATIVE RECOMMENDATION: Screening bilateral mammogram is recommended in 1 year. Mammo Location: [facility], [address] [place] [address], [id number], . -------- FINAL REPORT -------- Dictated By: Vani Rivera Dictated Date: 09/29/2024 16:20 ET Assigned Physician: Vani Rivera Reviewed and Electronically Signed By: Vani Rivera Signed Date: 09/29/2024 16:21 ET Workstation ID: [id number] Transcribed By: Self Edit Transcribed Date: 09/29/2024 [...] year. Mammo Location: [facility], [address] [place] [address], [id number], . -------- FINAL REPORT -------- Dictated By: Vani Rivera Dictated Date: 09/29/2024 16:20 ET Assigned Physician: Vani Rivera Reviewed and Electronically Signed By: Vani Rivera Signed Date: 09/29/2024 16:21 ET Workstation ID: [id number] Transcribed By: Self Edit Transcribed Date: 09/29/2024 16:20 ET us Self Referral Sppl IMG BI PROCEDURES Final Resul t from Last 3 Months or Most Recently Relevant to Health Maintenance Insurance [facility] MEDICARE Care Teams Neon Technician Relationship Specialty Start Date End Date Tenisha Neely MD [address] [place] [address] PCP - General Internal Medicine 09/29/24
== END 2025-01-25 11:35 | disposition home or self-care (01) ==
LOC: HO.ENCR 10:50
PROVIDERS: PCP Internal Medicine; Visit Provider Internal Medicine Endocrinology, Diabetes & Metabolism
DX: M81.0 Age-related osteoporosis without current pathological fracture (principal)
CPT/HCPCS: 99204

== ENCOUNTER → 2025-01-25 10:50 | Outpatient (BNVA) | payer MEDICARE, OTHER, SELFPAY | PROVIDERS: PCP Internal Medicine; Visit Provider Internal Medicine Endocrinology, Diabetes & Metabolism | DX: M81.0 Age-related osteoporosis without current pathological fracture (principal) | CPT/HCPCS: 99202 ==

== ENCOUNTER 2025-01-25 11:37 | Outpatient (REF) | payer MEDICARE, OTHER, SELFPAY | END 2025-01-25 11:38 | disposition home or self-care (01) | LOC: HO.10HDL 11:37 | PROVIDERS: Visit Provider Internal Medicine Endocrinology, Diabetes & Metabolism | DX: M81.0 Age-related osteoporosis without current pathological fracture (principal) | CPT/HCPCS: 84100; 86335 ==

== ENCOUNTER 2025-04-21 09:40 | Outpatient (REF) | payer MEDICARE, OTHER, SELFPAY ==
[2025-04-21 12:05] LABS: Creatinine, mg/dL 60.72; Total Volume 24 Hour Urine 1350 mL
[2025-04-22 21:33] LABS: Calcium/Creatinine Ratio 100 mg/g creat (30-275); Creatinine 24Hr Urine 0.86 g/24 h (0.50-2.15)
== END 2025-04-21 09:41 | disposition home or self-care (01) ==
LOC: HO.10HDLNP 09:40
PROVIDERS: Visit Provider Internal Medicine Endocrinology, Diabetes & Metabolism
DX: M81.0 Age-related osteoporosis without current pathological fracture (principal)
CPT/HCPCS: 82340; 82570